=== PATIENT | male | born 1945 | race Caucasian/White ===

== ENCOUNTER 2021-12-31 13:52 | Outpatient (CLI) | payer OTHER, SELFPAY ==
[2021-12-31 22:15] LABS: Albumin* 4.3 g/dL (3.3-5.0); Chloride* 99 mmol/L (96-114)
[2021-12-31 22:16] LABS: Potassium* 4.8 mmol/L (3.6-5.1); Sodium* 135 mmol/L (135-149)
[2021-12-31 22:18] LABS: Alkaline Phosphatase* 57 U/L (40-150); Aspartate Amino Transferase* 25 U/L (12-35); Bilirubin Total* 0.7 mg/dL (0.1-1.5); Blood Urea Nitrogen* 18 mg/dL (7-30); Carbon Dioxide* 26 mmol/L (20-32); Cholesterol* 127 mg/dL (90-199); Creatinine* 1.1 mg/dL (0.5-1.5); Estimated Glomerular Filt Rate 70 ml/min; Glucose* 228 mg/dL (60-115); Total Protein* 6.9 g/dL (6.0-8.3); Triglycerides* 240 mg/dL (40-149)
[2021-12-31 22:19] LABS: Alanine Aminotransferase* 29 U/L (4-50); Calcium* 9.8 mg/dL (8.4-10.6); HDL Cholesterol* 40 mg/dL (>=40); LDL Cholesterol Calculated 39 mg/dL (<100)
[2021-12-31 23:03] LABS: Vitamin B12* 746 pg/mL (243-894)
== END 2021-12-31 13:53 | disposition home or self-care (01) ==
PROVIDERS: PCP Family Medicine; Visit Provider Family Medicine
DX: Z00.00 Encounter for general adult medical examination without abnormal findings (principal); I25.10 Atherosclerotic heart disease of native coronary artery without angina pectoris; R26.89 Other abnormalities of gait and mobility; R94.131 Abnormal electromyogram [EMG]; Z86.39 Personal history of other endocrine, nutritional and metabolic disease; I10 Essential (primary) hypertension; E78.5 Hyperlipidemia, unspecified
CPT/HCPCS: 80053; 80061; 82607

== ENCOUNTER 2022-01-04 09:02 | Outpatient (CLI) | payer OTHER, SELFPAY ==
--- NOTE | 2022-01-04 09:15 | CRLHL7_ITS ---
For Patients: As a result of the Century Cures Act, medical imaging exams and procedure reports are released immediately into your electronic medical record. You may view this report before your referring provider. If you have questions, please contact your health care provider. INDICATION: Low back pain. TECHNIQUE: Noncontrast MRI of the lumbar spine is performed in the usual fashion. No comparisons. FINDINGS: Mild chronic wedge-shaped compression deformity of the L1 vertebral body. Remainder of the lumbar spine demonstrates normal overall stature, alignment and marrow signal. Conus is within normal limits. T12-L1, L1-2, L2-3: Unremarkable. L3-4: Mild broad-based posterior disc bulge with moderate bilateral facet arthropathy results in mild to moderate central canal narrowing. Right lateral extension of the underlying disk bulge results in mild to moderate right foraminal narrowing with contact of the exiting right L3 nerve root laterally with no left foraminal narrowing. L4-5: Moderate to severe bilateral facet arthropathy with ligamentum flavum laxity and mild broad-based posterior disc bulge results in severe central canal, bilateral lateral recess narrowing with moderate bilateral foraminal narrowing. L5-S1: Mild broad-based posterior disc bulge results in contact with no compression of the traversing S1 nerve roots. Central canal is patent. Associated bilateral facet arthropathy results in mild to moderate bilateral foraminal narrowing. IMPRESSION: 1. Severe central canal and bilateral lateral recess narrowing with likely compression of the traversing L5 nerve roots and moderate bilateral foraminal narrowing at L4-5. 2. Mild to moderate bilateral L5-S1 foraminal narrowing. 3. Right lateral disc herniation at L3-4 contacting the exiting right L3 nerve root laterally. 4. Mild chronic wedge-shaped compression deformity of the L1 vertebral body. 5. Milder degenerative changes within the remainder of the lumbar spine as outlined above. Dictated by Thuan Dobbins MD @ 01/04/2022 5:18:35 PM (Electronically Signed)
== END 2022-01-04 09:03 | disposition home or self-care (01) ==
PROVIDERS: PCP Family Medicine; Visit Provider Family Medicine
DX: M54.50 Low back pain, unspecified (principal); M51.27 Other intervertebral disc displacement, lumbosacral region; M51.26 Other intervertebral disc displacement, lumbar region
CPT/HCPCS: 72148

== ENCOUNTER 2022-03-05 10:15 | Outpatient (RCR) | payer OTHER, SELFPAY ==
--- NOTE | 2022-01-25 14:41 | PT.OPDN ---
PT [facility] Outpatient Daily Note PT [facility] Outpatient Daily Note Start: 10/10/21 12:08 Freq: Status: Active Protocol: Document 01/24/22 17:34 BMS (Rec: 01/24/22 17:35 BMS [id number]) E-signed By Janette Ventura, PT PT OP Daily Progress Note Visit Information Note Type Daily Note Visit Number [id number] Insurance Authorized Visits [phone]) Insurance Information Insurance Name Other; See Comments Insurance Information/Comments [employer] Medical Diagnosis balance problems R26.89 eval and treat Treating Diagnosis abnormal gait R26.9 repeated falls R29.6 R LE pain M79.609, Referring MD Ion SYED Subjective Subjective went back to doctor they did MRI and EMG and told me to continue with therapy. have been more unsteady Precautions Treatment Precautions/Contraindications use of gait belt with all gait , balance and transfer activities History of [place] (myocardial infarction) 2002. One stent. No records. See Past Records from [place]. Arteriosclerotic cardiovascular disease See Past Records from [place]. Type 2 diabetes mellitus with diabetic polyneuropathy Patient followed by Endocrinology. Amputation of toe of left foot 01/08/2018. Partial amputation 2nd toe. See Past Records from [place]. Mild cognitive impairment with memory loss See Past Records from [place]. SELMA (obstructive sleep apnea) Sleep study 03/23/17. No report. Showed mild to moderate SELMA associated with sleep fragmentation. Uses CPAP . See Past Records from [place]. Benign non-nodular prostatic hyperplasia with lower urinary tract symptoms See Past Records from [place]. Essential hypertension See Past Records from [place]. Mixed hyperlipidemia See Past Records from [place]. Type 2 diabetes mellitus with stage 3 chronic kidney disease , with long-term current use of insulin Hx of coronary angiogram 06/24/2002; 08/10/2002.See Past Records from [place]. 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; referral to Cardiology placed Home Exercise Home Exercise Comments 2 sets for alternating days , , FRI Access Code: [email or web address] Date: 10/18/2021 Exercises Alternating Step Forward with Support - 1 x daily - 5 x weekly - 1-3 sets - 10-20 reps - 5-10 sec hold Alternating Step Backward with Support - 1 x daily - 5 x weekly - 1-3 sets - 10-20 reps - 5-10 sec hold Side Stepping with Unilateral Counter Support - 1 x daily - 5 x weekly - 1-3 sets - 10-20 reps - 5-10 sec hold ~~~~~ M,W,F Exercises Sit to Stand - 1 x daily - 5 x weekly - 1-3 sets - 10-20 reps - 5-10 sec hold Standing Hip Flexion AROM - 1 x daily - 5 x weekly - 1-3 sets - 10-20 reps - 5-10 sec hold - hold 30-60 sec stretch Standing Hip Abduction with Counter Support - 1 x daily - 5 x weekly - 1-3 sets - 10-20 reps - 5-10 sec hold Standing Hip Extension with Counter Support - 1 x daily - 5 x weekly - 1-3 sets - 10-20 reps - 5-10 sec hold Standing Hip Flexor Stretch - 1 x daily - 5 x weekly - 1-3 sets - hold 30-60 sec stretch Objective Other/Pertinent Objective see assess portion Patient Instructed in Risks/Benefits Yes Therapeutic Exercise Therapeutic Exercise Minutes (minutes) 30 Therapeutic Exercise: To Restore recumbent bike 6 min Functional Status slant board stretches 2 x 30 sec, then ankle mobiliyt with slant board A/P x 10, wobble - sit/ stand x 10 HS stretches on stool 2 x 30 sec B - hip flexor stretch standing at rail 2 x 30 se revise home program - - standing hip abduct/ ext x 15 - sit/ stand x 10 no use of hands - bridge x 10 - SLR x 10, hip abduct x 10 Gait & Stair Training Gait Training/Stairs Minutes (minutes) 10 Gait & Stair Training Comments quad cane , cueing for foot clearance, stride length, gaze and scanning environment as well as which hand to use cane in. instruct in upright posture to bring COG over hips Treatment Minutes Timed Code Treatment Minutes 40 Total Treatment Time 40 Billing Units Neuromuscular Reeducation Units 1 Therapeutic Exercise Units 2 Assessment/Impression Assessment/Impression Patient returns after 3.5 week absence, after receiving new order request for insurance authorization was required before could schedule. He presents today with decline from last session in balance, gait and endurance. Reports he has been somewhat inconsistent with home program , that he has difficulty completing without assist. He also is unable to perform balance challenges and with weather turning cold less able to go for walks and camp etc. Eliezer is appropriat efor skilled phsyical therapy to slow decline and restore prior level of function then may be appropriate for maintenance therapy through winter ot decrease fall risk and maintain improved level of independence. patient demo increased difficulty with all balance activities - therapist does note LOB forward and posterior this date, with center of gravity shifted forward over base putting him at higher risk of falling forward. Gait: stooped, using quad cane in R , with decreased foot clearance R and short strides, downward gaze to floor. LOB with sit/stand and use of calves braced against chair or mat to rise. B UE assist also . Plan of Care Physical Therapy Goals 1) Pt demo independence/ modified I with home program to maximize self care and slow deterioration of function. 2) Pt maintain I transfers, transitions and bed mobility for maximum safe independence in own home through training, equipment and adaptation as appropriate in presence of degenerative disease process. PROGRESSING 3) Pt participate in gait and balance training to maximize safest independence with home and community mobility using least restrictive aid. PROGRESSING to more advanced balance ex 4) Pt participate in clinic program to maximize strength, stability, balance and conditioning for maximal quality of life while considering/ adapting to disease process. 3) Pt will demo 500' ambulation without limp and with best mechanics and balance to decrease risk of fall with community ambulation for things such as grocery shopping, participation in fitness activities. 4) Pt will demo ability to ascend 16 steps safely for access to bedroom 5) Pt demo ability to ambulate safely over grass, uneven ground, hills and rocks with least restrictive gait aid to be able to attend grandchildrens events Daily Plan of Care Comments challenged balance sung labile surface and vision impaired or occluded conditions, multitasking including walk/ talk, carrying and repetitions for cementing neuro patterns - request for additional approved visits to prior auth dept submitted Recertification Information Recertification Start Date 01/24/22 Recertification Due Date 02/22/22 Reasons to Continue Skilled Therapy see assess portion Rehabilitation Potential fair - cognitive and physical challenges Continued Plan of Care and Interventions 1-2x/ week x 12 weeks
== END 2022-05-03 11:11 | disposition home or self-care (01) ==
PROVIDERS: Visit Provider Family Medicine
DX: R26.89 Other abnormalities of gait and mobility (principal); Z51.89 Encounter for other specified aftercare
CPT/HCPCS: 97110; 97112; 97116; 97140; 97530

== ENCOUNTER 2022-03-25 12:24 | Outpatient (CLI) | payer OTHER, SELFPAY | END 2022-03-25 12:25 | disposition home or self-care (01) | LOC: US 12:25 | PROVIDERS: PCP Family Medicine; Visit Provider Family Medicine | DX: I73.9 Peripheral vascular disease, unspecified (principal) | CPT/HCPCS: 93924 ==

== ENCOUNTER 2022-04-01 07:24 | Day surgery (SDC) | payer OTHER, SELFPAY ==
[2022-04-01] VITALS (8 sets, daily range): BP systolic 108–137; BP diastolic 68–78; PULSE 61–82; RESP 16–18; TEMP 36.8–37; O2SAT 96–98; BMI 31.8
--- NOTE | 2022-04-01 07:52 | SUR.PREOP ---
patient and his both took at home covid antigen tests. Both hadnegative tests with only one line visible.
[2022-04-01] MEDS: BUPIVACAINE 0.5% 30 ML 20 ML INJECTION (09:20)
--- NOTE | 2022-04-01 10:13 | PM.GSPRC ---
Operative Note Date of procedure: 04/01/22 Type of Procedure: amputation 2nd toe left Procedure Description: After discussing the risks and benefits of the procedure, the patient signed informed consent.? The operative site was marked and the patient was brought to the operating room and placed on the operating table in supine position.? Care was taken to pad the patient's pressure points.?? The patient was then Injected with 20 mL all of 0.5% Marcaine.?? The operative site was then prepped and draped in the usual sterile fashion.? A time-out was then performed. the left foot was exsanguinated and the tourniquet inflated to 250 mm Hg. Incision was made at the base of the 2nd toe dorsally extended distally. Incision then diverged both medially and laterally around the base the toe converging plantarly. Incision was taken directly to bone. Proximal phalanx was disarticulated at the metatarsophalangeal joint. the proximal phalanx was removed in total and sent to pathology. Portion of infected area was sent for cultures. Wound was thoroughly irrigated with 1000 mL normal saline. Tourniquet was released and all bleeding vessels cauterized. medial and lateral flaps were brought together and sutured with 3-0 Nylon. Sterile dressings were then applied. The patient was then transported to the recovery area in stable condition. The patient tolerated the procedure well. Written and verbal postop instructions given. He is weight-bearing as tolerated. Continue with antibiotics until cultures complete. Tylenol 3 given for pain. Follow-up in 2 days. Findings: Proximal phalanx and pathology. portion of proximal phalanx and culture. Complications: None apparent Anesthesia: local Surgeon: Kevin Galloway DPM Condition: stable Disposition: same day
--- NOTE | 2022-04-01 10:30 | SUR.PHASEII ---
Pt and family member verbalized readiness to be discharged and understanding of discharge instructions. Active ice. black podiatry shoe given to patient per Dr. Galloway orders. Pt tolerated coffee and water.
== END 2022-04-01 10:29 | disposition home or self-care (01) ==
PROVIDERS: PCP Family Medicine; Visit Provider Podiatrist
PROC: (CPT 28820; principal; 2022-04-01 09:00)
DX: L97.522 Non-pressure chronic ulcer of other part of left foot with fat layer exposed (principal); E11.621 Type 2 diabetes mellitus with foot ulcer; E11.628 Type 2 diabetes mellitus with other skin complications; L03.032 Cellulitis of left toe; M86.172 Other acute osteomyelitis, left ankle and foot
CPT/HCPCS: 28820; 87186; 87205; 88305; 88311; J3490

== ENCOUNTER 2022-04-25 11:50 | Outpatient (CLI) | payer OTHER, SELFPAY ==
[2022-04-25 21:58] LABS: Albumin* 4.3 g/dL (3.3-5.0); Chloride* 104 mmol/L (96-114)
[2022-04-25 21:59] LABS: Potassium* 5.4 mmol/L (3.6-5.1); Sodium* 138 mmol/L (135-149)
[2022-04-25 22:01] LABS: Aspartate Amino Transferase* 24 U/L (12-35); Bilirubin Total* 0.7 mg/dL (0.1-1.5); Blood Urea Nitrogen* 24 mg/dL (7-30); Carbon Dioxide* 29 mmol/L (20-32); Cholesterol* 121 mg/dL (90-199); Creatinine* 1.3 mg/dL (0.5-1.5); Estimated Glomerular Filt Rate 58 ml/min; Glucose* 157 mg/dL (60-115); Total Protein* 6.8 g/dL (6.0-8.3)
[2022-04-25 22:02] LABS: Alanine Aminotransferase* 27 U/L (4-50); Alkaline Phosphatase* 43 U/L (40-150); Calcium* 9.7 mg/dL (8.4-10.6); HDL Cholesterol* 39 mg/dL (>=40); LDL Cholesterol Calculated 45 mg/dL (<100); Triglycerides* 183 mg/dL (40-149)
[2022-04-25 23:44] LABS: Vitamin B12* 921 pg/mL (243-894)
== END 2022-04-25 11:51 | disposition home or self-care (01) ==
PROVIDERS: PCP Family Medicine; Visit Provider Family Medicine
DX: Z00.00 Encounter for general adult medical examination without abnormal findings; E11.9 Type 2 diabetes mellitus without complications; Z13.6 Encounter for screening for cardiovascular disorders; Z79.899 Other long term (current) drug therapy
CPT/HCPCS: 80053; 80061; 82043; 82570; 82607; 84156

== ENCOUNTER 2022-04-26 10:09 | Outpatient (CLI) | payer OTHER, SELFPAY ==
[2022-04-26 13:07] LABS: Total Protein Urine 20 mg/dL
[2022-04-26 13:10] LABS: Creatinine Urine 127.2 mg/dL
== END 2022-04-26 10:10 | disposition home or self-care (01) ==
LOC: FRMREF 10:09
PROVIDERS: PCP Family Medicine; Visit Provider Family Medicine
DX: E11.9 Type 2 diabetes mellitus without complications (principal)
CPT/HCPCS: 82570; 84156

== ENCOUNTER 2023-03-13 10:37 | Outpatient (CLI) | payer OTHER, SELFPAY ==
[2023-03-13 14:49] LABS: TSH With Reflex to FT4* 0.635 uIU/mL (0.270-4.200)
[2023-03-13 14:52] LABS: Albumin* 4.5 g/dL (3.3-5.0); Chloride* 97 mmol/L (96-114)
[2023-03-13 14:53] LABS: Potassium* 4.9 mmol/L (3.6-5.1); Sodium* 133 mmol/L (135-149)
[2023-03-13 14:55] LABS: Alanine Aminotransferase* 50 U/L (4-50); Alkaline Phosphatase* 59 U/L (40-150); Anion Gap 11 mEq/L (7-15); Aspartate Amino Transferase* 37 U/L (12-35); Bilirubin Total* 1.2 mg/dL (0.1-1.5); Blood Urea Nitrogen* 19 mg/dL (7-30); Carbon Dioxide* 25 mmol/L (20-32); Estimated Glomerular Filt Rate 78 ml/min; Total Protein* 7.1 g/dL (6.0-8.3)
[2023-03-13 14:56] LABS: Calcium* 9.6 mg/dL (8.4-10.6)
[2023-03-13 15:35] LABS: Glucose* 560 mg/dL (60-115)
== END 2023-03-13 10:38 | disposition home or self-care (01) ==
PROVIDERS: PCP Family Medicine; Visit Provider Family Medicine
DX: E63.9 Nutritional deficiency, unspecified (principal); R63.4 Abnormal weight loss
CPT/HCPCS: 80053; 84443

== ENCOUNTER 2023-06-17 07:13 | Outpatient (CLI) | payer OTHER, SELFPAY | END 2023-06-17 07:14 | disposition home or self-care (01) | PROVIDERS: PCP Family Medicine; Visit Provider Family Medicine | DX: E11.42 Type 2 diabetes mellitus with diabetic polyneuropathy (principal); Z86.39 Personal history of other endocrine, nutritional and metabolic disease; Z12.5 Encounter for screening for malignant neoplasm of prostate; Z11.59 Encounter for screening for other viral diseases | CPT/HCPCS: 80053; 82043; 82570; 82607; 86803; G0103 ==

== ENCOUNTER 2023-07-25 10:06 | Outpatient (CLI) | payer OTHER, SELFPAY ==
--- NOTE | 2023-07-25 10:15 | US_ITS ---
Patient: NEYMAR AVILES Facility:?[facility] Patient ID:?[id number] Site Patient ID:?[id number]. Site :?[id number] Study:?US-Abdomen AORTA-07/25/2023 11:18:05 AM Ordering Physician:Esther Colon Final Report: Examination: US abdominal aorta Indication: Abdominal aortic aneurysm screening. Technique: Emmanuel scale and color Doppler images of the aorta and common iliac arteries are obtained. Comparison: None Findings: Proximal aorta: 1.7 x 1.8 cm Mid aorta: 1.6 x 1.4 cm Distal aorta: 1.6 x 1.6 cm Right common iliac artery: 0.8 x 0.8 cm Left common iliac artery: 0.9 x 0.9 cm Impression: No abdominal aortic aneurysm. Dictated by Neymar Vegas MD @ 07/25/2023 11:46:50 AM Signed by:?Neymar Vegas MD @07/25/2023 11:46:50 AM (Electronic Signature)
== END 2023-07-25 10:07 | disposition home or self-care (01) ==
LOC: US 10:08
PROVIDERS: PCP Family Medicine; Visit Provider Family Medicine
DX: Z13.6 Encounter for screening for cardiovascular disorders (principal); Z87.891 Personal history of nicotine dependence
CPT/HCPCS: 76706

== ENCOUNTER 2024-06-29 10:06 | Outpatient (CLI) | payer OTHER, SELFPAY | END 2024-06-29 10:07 | disposition home or self-care (01) | PROVIDERS: PCP Family Medicine; Visit Provider Family Medicine | DX: E11.42 Type 2 diabetes mellitus with diabetic polyneuropathy (principal); N18.9 Chronic kidney disease, unspecified; R33.9 Retention of urine, unspecified; Z86.39 Personal history of other endocrine, nutritional and metabolic disease | CPT/HCPCS: 80048; 82043; 82570; 82607 ==

== ENCOUNTER 2024-06-29 13:19 | Emergency (ER) | payer OTHER, SELFPAY ==
--- OUTSIDE RECORDS SUMMARY | 2024-06-29 13:21 | XMS_ITS | Clinical Summary ---
Author Organization [facility] Address [address] [place] [id number] Care Team Providers Care Dishcloth Folder Name Role Phone Yumiko Vidal MD Unavailable Unavailable Yumiko Vidal MD Unavailable Unavailable Esther Arboleda MD Primary Care Provider [phone] Allergies Active Allergy Reactions Criticality Noted Date Comments Oxycodone-Acetaminophen Other - Describe In Comment Field Low 01/08/2018 Patient stated he feels beside himself (anxiety type reaction) Patient stated he feels beside himself (anxiety type reaction) Penicillins *Unknown - Childhood Rxn 01/25/2014 Medications metFORMIN (GLUCOPHAGE) 1,000 mg tabletIndications :Type II or unspecified type diabetes mellitus without mention of complication, uncontrolled Take 1 tablet by mouth 2 times daily with meals. 0 01/26/20 14 Active aspirin (ECOTRIN) 81 mg enteric coated tabletIndications :Type II or unspecified type diabetes mellitus without mention of complication, uncontrolled Take 1 tablet by mouth once daily with a meal. 0 01/26/20 14 Active insulin degludec, U-100, (Tresiba FlexTouch U-100) 100 unit/mL (3 mL) pen Inject 33 units subcutaneous every morning. 0 04/10/20 22 Active metoprolol succinate (Toprol XL) 25 mg Sustained-Release tabletIndications :Arteriosclerotic heart disease Take 1 Tablet (25 mg) by mouth once daily. 90 Tablet 3 04/10/20 22 Active simvastatin (ZOCOR) 10 mg tablet Take 10 mg by mouth at bedtime. 09/25/19 23 Active Graduated Compression StockingsIndicati ons:Venous insufficiency of both lower extremities 20-30 mm/Hg calf high compression stockings - Venous insufficiency 8 Packet 08/12/19 24 Active Active Problems Problem Noted Date Diagnosed Date Shortness of breath 12/08/2006 ASHD S/P INFERIOR GA + RCA STENT 06/14 [place] [facility] 12/08/2006 Pure hypercholesterolemia 12/08/2006 EXCESS WEIGHT 12/08/2006 Immunizations Immunization Administration Dates Next Due Influenza Virus, Unspecified 11/27/2019, 01/06/2013,01/01/2012,2008 Influenza, High-dose Inactivated 019,01/12/2018,12/23/2016,2015,01/25/2015,01/19/2015,01/31/2014 Influenza, High-dose Quadriv alent Inactivated 12/09/2021 Influenza, IIV3 (Age 6-35 mos) 12/31/2019 Influenza, IIV3 (Age >=3 years) 01/06/2013,12/31,01/27/2009 Influenza, Inactivated AIIV4 (Age 65+ Years) Preserv Free 01/04/2021 Influenza, Inactivated IIV3 (Age 65+ Years) Preserv Free 01/04/2021,12/31/2019 Pneumococcal Poly,23-Valent (Pneumovax) 06/02/2014,05/23/2014,01/27/2009 Pneumococcal conj 13-Valent (Prevnar 13) 01/15/2016 Tdap 09/02/2019,08/16/2009 Zoster (Shingrix-RZV, recombinant) 06/03/2018,,01/29/2018 Family History Relation Name Status Comments Father Mother Social History Tobacco Use Types Packs/Day Years Used Date Smoking Tobacco: Former Cigarettes Smokeless Tobacco: Never Tobacco Cessation:Counseling Given: Yes Alcohol Use Standard Drinks/Week Comments Yes 0 (1 standard drink = 0.6 oz pur e alcohol) 1-2x a day (beer) Social Connections Answer Date Recorded Frequency of Communication with Friends and Fami ly Not on file 06/29/2021 Sex and Gender Information Value Date Recorded Sex Assigned at Not on file 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 Gender Identity Not on file Sexual Orientation Not on file Obstetrics History Last Filed Vital Signs Vital Sign Reading Time Taken Comments Blood Pressure 122/64 08/12/2023 8:47 AM CDT Pulse 89 08/12/2023 8:47 AM CDT Temperature 36.7 C (98.1 F) 11/18/2022 1:31 PM CDT Respiratory Rate 14 06/29/2021 11:27 AM CDT Oxygen Saturation 96% 04/29/2023 12:56 PM 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 Inhaled Oxygen Concentration - - Weight 95.3 kg (210 lb) 08/12/2023 8:47 AM CDT Height 182.9 cm (6') 08/12/2023 8:47 AM CDT Body Mass Index 28.48 08/12/2023 8:47 AM CDT Plan of Treatment Health Maintenance Due Date Last Done Comments Depression screening for age 12+ 1959 Hepatitis C screening for ag e 18-79 06/16/1965 Medicare Wellness for age 65+ 06/16/2012 RSV vaccine for adults or (1 - 1-dose 75+ series) 06/16/2022 COVID-19 vaccine series ( season) 2023 02/05/2023, 02/05/2022, 07/30/2021, Additional history exists Influenza Vaccine (#1) 2023 , 01/04/2021, 12/31/2019, Additional history exists BMI (ht and wt on same day) for age 18+ 08/11/2024 08/12/2023, 04/10/2022, 01/31/2022 Tetanus booster 09/01/2029 09/02/2019, 08/16/2009 Pneumococcal series for age 50+ Completed 01/15/2016, 06/02/2014, 05/23/2014, Additional history exists Zoster (shingles) series for age 50+ Completed 06/03/2018, 05/25/2018, 01/29/2018 Tdap Completed 09/02/2019, 08/16/2009 Insurance [employer] CHOICE PPO [place] MEDICARE PART A HB ONLY Care Teams Dishcloth Folder Relationship Specialty Start Date End Date Esther Arboleda MD [id number] [place] [address] PCP - General 01/16/22 Yumiko Vidal MD Endocrinology 01/25/14 Yumiko Vidal MD Endocrinology 01/25/14
--- OUTSIDE RECORDS SUMMARY | 2024-06-29 13:22 | XMS_ITS | Clinical Summary ---
Author Organization [facility] Address [address] [place] [address] Care Team Providers Care Office Clin Asst Name Role Phone Rosamaria Lane MD Unavailable [phone] [facility], Shweta Unavailable Unavailable Allergies Active Allergy Reactions Criticality Noted Date Comments Oxycodone-Acetaminophen Other Low 01/08/2018 Patient stated he feels beside himself (anxiety type reaction) Penicillins Rash Medium 07/31/2010 Other reaction(s): Hives Medications * This document contains information received from the source organization and may not represent a complete record from that organization. aspirin 81 mg Oral TbEC Take 81 mg by mouth daily. Active lancets (ACCU-CHEK MULTICLIX LANCET)Indication s:Type 2 diabetes mellitus without complication, with long-term current use of insulin (HCC) USE DIRECTED TO TEST TWICE DAILY 204 each 3 0 Active lancetsIndication s:Type 2 diabetes mellitus with stage 3a chronic kidney disease, with long-term current use of insulin (HCC),Type 2 diabetes mellitus with diabetic polyneuropathy, with long-term current use of insulin (HCC) by [facility]Non-Drug ; Combo Route) route once daily. Accu-chek Fastclix. 100 each 3 1 Active pen needle, diabetic (BD INSULIN PEN NEEDLE UF) 31 gauge x 5/16 needleIndications :Type 2 diabetes mellitus with stage 3a chronic kidney disease, with long-term current use of insulin (HCC) by [facility].(Non-Drug ; Combo Route) route once daily. 100 each 3 2 Active donepeziL (ARICEPT) 5 mg oral tablet Take 5 mg by mouth. 2 Active metFORMIN (GLUCOPHAGE) 1,000 mg oral tabletIndications :Type 2 diabetes mellitus without complication, with long-term current use of insulin (HCC) Take 1 tablet (1,000 mg) by mouth twice a day. 60 tablet 2 Active ramipriL (ALTACE) 2.5 mg oral CapIndications:Es sential hypertension Take 1 capsule (2.5 mg) by mouth once daily. 90 capsule 2 Active simvastatin (ZOCOR) 20 mg oral tabletIndications :Dyslipidemia Take 1 tablet (20 mg) by mouth at bedtime. at bedtime. 90 tablet 2 Active insulin degludec (TRESIBA FLEXTOUCH U-100) 100 unit/mL (3 mL) SubQ InPnIndications:T ype 2 diabetes mellitus without complication, with long-term current use of insulin (HCC) INJECT 36 UNITS UNDER THE SKIN ONCE DAILY. 15 mL 2 Active Tubing and Mask for CPAPIndications:O SA (obstructive sleep apnea) 1 each by Mis.(Non-Drug ; Combo Route) route as directed. Under the nose mask and cushions, A7035 Headgear 1 per 6 mon; A7037 Tubing for PAP 1 per 3 mon; A7038 Filter(s) disposable 2 per mon; A7046 Water chamber for Humidifier 1 per 6 month. E0562 Heated Humidifier. Lifetime use. 1 each 11 3 Active Active Problems Problem Noted Date Diagnosed Date Abnormal electromyogram (EMG) 10/22/2022 Balance disorder 10/22/2022 Claudication 10/22/2022 Frequent ventricular premature beats 10/22/2022 History of non anemic vitamin B12 deficiency 02/2023 Spinal cord compression 10/22/2022 Peripheral neuropathy 12/12/2021 Abnormal gait 03/05/2021 Other amnesia 03/05/2021 Type 2 diabetes mellitus wit h diabetic polyneuropathy, with long-term current use of insulin 09/27/2019 History of amputation of lesser toe of left foot 01/12/2018 DECLINED chronic care management [Jan 2018] 05/2017 Mild cognitive impairment with memory loss 04/17 Nocturia 04/17/2017 SELMA (obstructive sleep apnea) 03/23/2017 Overview (03/28/2017): AHI 11.5/RDI 27.4/REM AHI 23.7, oxygen desaturation 91%, Marcela Benign non-nodular prostatic hyperplasia with lower urinary tract symptoms 02/17/2015 ASCVD (arteriosclerotic cardiovascular disease) 03/01/2011 Overview (02/26/2012): *[facility]oplasty and stenting of the occluded Cx/OM artery using a 2.5x15mm balloon followed by 2.89n01cm B Velocity stent. *08/10/2002- Angiogram complete. No intervention. Patient to start EECP. Essential hypertension 09/05/2010 Claustrophobia 09/05/2010 Type 2 diabetes mellitus wit h stage 3a chronic kidney disease, with long-term current use of insulin 07/31/2010 Mixed hyperlipidemia 07/31/2010 Immunizations Name Administration Dates Next Due Influenza (Fluzone 2011-13) 01/01/2012 Influenza (Fluzone MDV 2012- 14) 6-35 Mos 01/06/2013,01/01/2012,01/27/2009 Influenza High Dose (Fluzone 2013-15) 01/31/2014 Influenza High Dose (Fluzone Quadrivalent PF) 12/09/2021,01/04/2021,12/31/2019,2018,01/12/2018,12/23/2016,01/15/2016,1 ,01/31/2014 Influenza recombinant (FluBl ok Quadrivalent PF) 01/04/2021,12/31/2018,01/12/2018,2016,01/15/2016,01/25/2015,01/19/2015,1 ,01/06/2013,01/01/2012, 009 Influenza split virus quadrivalent 11/26,01/06/2013,01/01/2012,2008 Pfizer 12+ Yrs Bivalent COVI D Vaccine (bowen cap) 02/05/2022 Pfizer 12+ Yrs Monovalent CO VID Vaccine (bowen cap) 07/30/2021 Pfizer 12+ Yrs Monovalent CO VID Vaccine (purple cap) 07/30/2021,01/09/2021,05/25/2020,2020 Pneumococcal PCV13 01/15/2016 Pneumococcal PPSV23 06/02/2014,01/27/2009 Td adult adsorbed (lf) unspecified 08/16/2009 Tdap 09/02/2019 Zoster Recombinant 06/03/2018,01/29/2018 Family History Medical History Relation Comments Heart Disease Father Cancer Mother Relation Status Comments Father (Age 63) Mother Social History Tobacco Use Types Packs/Day Years Used Date Smoking Tobacco: Former Cigarettes 2 36 0 06/12/1966 - 06/12/2002 Smokeless Tobacco: Never Tobacco Cessation:Counseling Given: Not Answered Alcohol Use Standard Drinks/Week Comments Yes 8.3 (1 standard drink = 0.6 oz p ure alcohol) couple beers per week PHQ-2 Answer Date Recorded PHQ9 Total Score, calculated 1 10/2018 Sex and Gender Information Value Date Recorded Sex Assigned at Not on file Legal Sex Male 8:38 AM CDT Gender Identity Not on file Sexual Orientation Not on file Occupation Industry Job Start Date Job End Date Retired Not on file Not on file Not on file 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 Not on file Not on file Not on file Last Filed Vital Signs Vital Sign Reading Time Taken Comments Blood Pressure 112/74 10/22/2022 1:14 PM CDT Pulse 62 12/03/2019 10:58 AM CDT Temperature 36.4 C (97.6 F) 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 Respiratory Rate 14 10/01/2010 8:30 AM CDT Oxygen Saturation 97% 12/03/2019 10:58 AM CDT Inhaled Oxygen Concentration - - Weight 103.4 kg (228 lb) 10/22/2022 1:14 PM CDT Height 177.2 cm (5' 9.75) 10/22/2022 1:14 PM CD T Body Mass Index 32.95 10/22/2022 1:14 PM CDT Plan of Treatment Health Maintenance Due Date Last Done Comments Depression Assessment (PHQ-2) 06/16/1946 Eye Exam 01/30/2021 01/31/2020, 01/12, 08/29/2017, Additional history exists Medicare Wellness Visit 02/07/2021 02/08/20, 01/18/2019, 01/12/2018, Additional history exists Yearly Review of HCD 02/07/2021 02/08/2020, 01/18/2019, 01/05/2018, Additional history exists HgbA1C 04/28/2021 01/26/2021, 05/15, 09/27/2019, Additional history exists Creatinine 04/18/2023 04/18/2022, 03/15, 01/26/2021, Additional history exists COVID-19 Vaccine (2023-05 5 season) 2023 02/05/2023, 02/05/2022, 07/30/2021, Additional history exists Influenza Vaccine (#1) 2023 , 12/09/2021, 01/04/2021, Additional history exists Colonoscopy 04/01/2026 04/01/2016 Adult Tetanus Booster 09/01/2029 09/02/2019, 010 Pneumococcal 50+ Years Completed 6, 06/02/2014, 01/27/2009 Hepatitis C Screening Completed 01/02/2017 Zoster Vaccine Completed 06/03/2018, 05/16, 01/29/2018 RSV Vaccines Completed 03/05/2023 Procedures Procedure Name Priority Date/Time Associated Diagnosis Comments BASIC METAB PROFILE Routine 01/26/2021 1 :32 PM CDT Type 2 diabetes mellitus with stage 3a chronic kidney disease, with long-term current use of insulin (HCC) (yes) (HCC) HGB A1C (GLYCO HGB) (BFM / STH USE ONLY) Routine 01/26/2021 1:32 PM CDT Type 2 diabetes mellitus with stage 3a chronic kidney disease, with long-term current use of insulin (HCC) (yes) (HCC) HEP C ANTIBODY Routine 01/02/2017 11:09 AM CDT Need for hepatitis C screening test from Last 3 Months or Most Recently Relevant to Health Maintenance Results * (ABNORMAL) HGB A1C (GLYCO HGB) (BFM / STH USE ONLY) (01/26/2021 1:32 PM CDT) HGBA1C OP 6.8(H) 3.8 - 5.6 % [facility] Blood VENOUS BLOOD SPECIMEN / Unknown 01/26/2021 1:32 PM CDT Nargis Contreras MD CHEMISTRY ORDERABLE Final Resu lt Performing Organization Address [facility]/ZIP Co de Phone Number [address] [address], [place] [phone] * (ABNORMAL) BASIC METAB PROFILE (01/26/2021 1:32 PM CDT) GLUCOSE CASUAL OP 100.0(H) 70.0 - 99.0 mg/dL [facility] BUN 16.0 7.0 - 18.0 mg/dL [facility] CREATININE 1.33(H) 0.60 - 1.30 mg/dL [facility] CALCIUM 9.3 8.5 - 10.1 mg/dL [facility] SODIUM 139.0 136.0 - 145.0 mmol/L [facility] POTASSIUM 4.2 3.5 - 5.1 mmol/L [facility] CHLORIDE 102.0 98.0 - 107.0 mmol/L [facility] CO2 26.1 21.0 - 32.0 mmol/L [facility] EST GFR (MDRD) 52.7 [facility] Comment: Calculated GFR for the patient 18 and older: Normal Kidney Function: >/-90 Mild Decreased GFR: 60 - 89 Moderated Decreased GFR: 30 - 59 Severe Decreased GFR: 15 - 29 Kidney Failure: <15 (or dialysis) If the patient is , the calculated GFR should be multiplied by 1.21. Units of measure for GFR = mL/min/1.73m2 The GFR value is not valid for patients under 18 years of age. Please disregard. Blood VENOUS BLOOD SPECIMEN / Unknown 01/26/2021 1:32 PM CDT Nargis Contreras MD CHEMISTRY ORDERABLE Final Resu lt [address] [place] [address], * HEP C ANTIBODY (01/02/2017 11:09 AM CDT) Hepatitis C Antibody Non-Reacti ve Non-Reacti ve 01/03/2017 11:52 AM CDT [facility] Blood VENOUS BLOOD SPECIMEN / Unknown 01/02/2017 11:09 AM CDT 01/03/2017 10:52 AM CDT us Allan Wilder MD IMMUNOLOGY ORDERABLE Final Resul t [facility] [address] [place] [address] from Last 3 Months or Most Recently Relevant to Health Maintenance Insurance [facility] MEDICARE ADVANTAGE MEDICARE PART A & B ATTN CLAIMS [facility] [place] [id number] [employer] MEDICARE ADVANTAGE Advance Directives For more information, please contact: [phone] Documents on File Type Date Recorded 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
--- OUTSIDE RECORDS SUMMARY | 2024-06-29 13:22 | XMS_ITS | Encounter Summary ---
Author Organization [facility] Address [address] [place] [address] Care Team Providers Care Poker In Name Role Phone System, Provider Not In Primary Care Provider Un available Reason for Visit * Reason Comments Generalized Weakness Encounter Details Date Type Department Care Team (Late st Contact Info) Description 2024 6:00 PM CONSULTING ANALYST - 2024 10:18 PM CONSULTING ANALYST Emergency [facility] Emergency Dept [address] [place] [address] Moris Petty MD EMERGENCY PHYSICIAN [facility] [address] [id number] COVID-19 virus infection; General weakness Discharge Disposition: Home or Self Care Social History Tobacco Use Types Packs/Day Years Used Date Smoking Tobacco: Never Assessed Sex and Gender Information Value Date Recorded Sex Assigned at Not on file Legal Sex Male 8:07 PM CDT Gender Identity Not on file Sexual Orientation Not on file documented as of this encounter Last Filed Vital Signs Vital Sign Reading Time Taken Comments Blood Pressure 134/77 2024 8:30 PM CONSULTING ANALYST Pulse 93 2024 8:30 PM CONSULTING ANALYST Temperature 36.8 C (98.3 F) 2024 6:04 PM CONSULTING ANALYST Respiratory Rate 18 2024 9:26 PM CONSULTING ANALYST Oxygen Saturation 95% 2024 8:16 PM CONSULTING ANALYST Inhaled Oxygen Concentration - - Weight 100.5 kg (221 lb 8 oz) 2024 6:04 PM CONSULTING ANALYST Height 182.9 cm (6') 2024 6:04 PM CONSULTING ANALYST Body Mass Index 30.04 2024 6:04 PM CONSULTING ANALYST documented in this encounter Discharge Instructions * Attachments The following attachments cannot be sent through Care Everywhere. * Weakness: Generalized (Estonian) * (s) Discharge Instructions for COVID-19 Patients (Estonian) documented in this encounter Medications at Time of Discharge albuterol (PROAIR HFA/PROVENTIL HFA/VENTOLIN HFA) 108 (90 Base) MCG/ACT inhaler Inhale 2 puffs into the lungs every 6 hours as needed for shortness of breath, wheezing or cough. 18 g 2024 documented as of this encounter ED Notes * Zuleika Dunne - 2024 8:45 PM CST Ambulated patient in llamas with walker,Pt had steady gate and no complaints. ULTING ANALYST * Moris Petty MD - 2024 6:55 PM CST Emergency Department Note History of Present Illness Chief Complaint Generalized Weakness HPI Neymar Pruett is a 79 year old male with a past medical history significant for hypertension, hyperlipidemia, VT and type 2 diabetes here with his for evaluation of generalized weakness. Patient reports onset of bilateral lower extremity weakness a few days ago. This worsened today. Reports some difficulty ambulating at baseline, however today reports significantly increased lethargy and weakness. Last night he was coughing frequently and vomiting. No sore throat, congestion, runny nose. He denies fever, headache, chest pain, abdominal pain, back pain, dysuria, urinary frequency, rashes, wounds. His and kids recently had cold symptoms. No asthma or COPD. Patient reports history of smoking, not currently. Independent Historian as detailed above. notes that she is also feeling like she has a cold and they recently had visitors that were sick. Review of External Notes None Past Medical History Medical History and Problem List Hypertension Hyperlipidemia Type 2 diabetes SELMA Spinal cord compression Peripheral neuropathy Balance disorder Hypercholesterolemia VT Medications Zocor Metoprolol succinate Aspirin 81 mg Metformin Surgical History Cholecystectomy Appendectomy Tonsillectomy and adenoidectomy Partial amputation and capsulotomy MTP joint of left second toe Hernia repair Physical Exam Patient Vitals for the past 24 hrs: BP Temp Temp src Pulse Resp SpO2 Height Weight 06/17/246 -- -- -- -- 18 -- -- -- 06/17/242029 134/77 -- -- 93 -- -- -- -- 06/17/242015 -- -- -- -- -- 95 % -- -- 06/17/242005 -- -- -- -- -- 96 % -- -- 06/17/24 195 (!) 144/73 -- -- -- -- 96 % -- -- 06/17/24 1936 -- -- -- 87 -- -- -- -- 06/17/241925 (!) 137/101 -- -- 85 -- -- -- -- 06/17/24 191 (!) 156/80 -- -- 86 -- -- -- -- 06/17/24 180 (!) 145/78 98.3 ??F (36.8 ??C) Oral 89 18 94 % 1.829 m (6') 100.5 kg (221 lb 8 oz) Physical Exam Vitals and nursing note reviewed. Constitutional: General: He is not in acute distress. Appearance: He is ill-appearing. He is not toxic-appearing. HENT: Head: Normocephalic and atraumatic. Right Ear: External ear normal. Left Ear: External ear normal. Nose: Nose normal. Eyes: Conjunctiva/sclera: Conjunctivae normal. Cardiovascular: Rate and Rhythm: Normal rate and regular rhythm. Pulses: Normal pulses. Heart sounds: No murmur heard. Pulmonary: Effort: Pulmonary effort is normal. No respiratory distress. Breath sounds: Wheezing present. No rhonchi or rales. Abdominal: General: Abdomen is flat. There is no distension. Palpations: Abdomen is soft. Tenderness: There is no abdominal tenderness. There is no guarding or rebound. Musculoskeletal: General: No swelling or deformity. Cervical back: Normal range of motion and neck supple. Skin: General: Skin is warm and dry. Findings: No rash. Neurological: Mental Status: He is alert and oriented to person, place, and time. Cranial Nerves: No cranial nerve deficit. Sensory: No sensory deficit. Motor: No weakness. Psychiatric: Behavior: Behavior normal. Diagnostics Lab Results Labs Ordered and Resulted from Time of ED Arrival to Time of ED Departure BASIC METABOLIC PANEL - Abnormal Result Value Sodium 133 (*) Potassium 4.4 Chloride 97 (*) Carbon Dioxide (CO2) 27 Anion Gap 9 Urea Nitrogen 20.3 Creatinine 1.20 (*) GFR Estimate 62 Calcium 10.5 (*) Glucose 221 (*) INFLUENZA A/B, RSV AND SARS-COV2 PCR - Abnormal Influenza A PCR Negative Influenza B PCR Negative RSV PCR Negative SARS CoV2 PCR Positive (*) ROUTINE UA WITH MICROSCOPIC REFLEX TO CULTURE - Abnormal Color Urine Yellow Appearance Urine Clear Glucose Urine >=1000 (*) Bilirubin Urine Negative Ketones Urine Negative Specific Midkiff Urine 1.021 Blood Urine Negative pH Urine 7.5 (*) Protein Albumin Urine 30 (*) Urobilinogen Urine Normal Nitrite Urine Negative Leukocyte Esterase Urine Negative Mucus Urine Present (*) RBC Urine 2 WBC Urine 3 CBC WITH PLATELETS AND DIFFERENTIAL - Abnormal WBC Count 11.6 (*) RBC Count 4.70 Hemoglobin 14.3 Hematocrit 42.3 MCV 90 MCH 30.4 MCHC 33.8 RDW 12.7 Platelet Count 185 % Neutrophils 81 % Lymphocytes 6 % Monocytes 12 % Eosinophils 0 % Basophils 0 % Immature Granulocytes 0 NRBCs per 100 WBC 0 Absolute Neutrophils 9.4 (*) Absolute Lymphocytes 0.7 (*) Absolute Monocytes 1.4 (*) Absolute Eosinophils 0.0 Absolute Basophils 0.1 Absolute Immature Granulocytes 0.1 Absolute NRBCs 0.0 TROPONIN T, HIGH SENSITIVITY - Abnormal Troponin T, High Sensitivity 39 (*) TROPONIN T, HIGH SENSITIVITY - Abnormal Troponin T, High Sensitivity 39 (*) TSH WITH FREE T4 REFLEX - Normal TSH 1.05 PROCALCITONIN - Normal Procalcitonin 0.11 Imaging XR Chest 2 Views Final Result IMPRESSION: Negative chest. EKG ECG results from 06/17/24 EKG 12-lead, tracing only Value Systolic Blood Pressure Diastolic Blood Pressure Ventricular Rate 91 Atrial Rate 91 FL Interval 162 QRS Duration 102 QT 362 QTc 445 P [place] 23 R AXIS 52 T Petersburg -56 Interpretation ECG Sinus rhythm with occasional Premature ventricular complexes Cannot rule out Anterior infarct , age undetermined ST & T wave abnormality, consider inferior ischemia Abnormal ECG No previous ECGs available Independent Interpretation CXR: No pneumothorax or infiltrate. ED Course Medications Administered Medications sodium chloride 0.9% BOLUS 1,000 mL (0 mLs Intravenous Stopped 06/17/242125) Procedures Procedures Discussion of Management None ED Course ED Course as of 06/17/242223 Roxy Jun 17, [id number] I obtained history and examined the patient as noted above. 2108 I rechecked and updated the patient. Additional Documentation None Medical Decision Making / Diagnosis [facility] Diagnoses: None MIPS None MDM Neymar Pruett is a 79 year old male who presents with general weakness for the past couple days. He is also had a cough and some vomiting. is also getting sick and they have had recent sick contacts. I suspect that he has some sort of viral illness such as influenza or COVID. Otherwise could be other infectious etiology such as pneumonia or UTI. He has no focal neurologic deficits to suggest a stroke. Workup was pursued as noted. He was positive for COVID. His troponin was mildly elevatedbut remained stable on recheck. He has no chest pain or other ischemic symptoms. Chest x-ray showedno pneumonia. UA showed no UTI. Patient was given IV fluids and was able to ambulate with a walker in the ED. Patient and feel that he is able to go home at this time. I did offer Paxlovid but they declined. Discussed return precautions and home care. We will give albuterol for home as well given the slight wheezing noted on exam in the ED. Disposition The patient was discharged. Diagnosis ICD-10-CM 1. COVID-19 virus infection U07.1 2. General weakness R53.1 Discharge Medications Discharge Medication List as of 2024 9:26 PM START taking these medications Details albuterol (PROAIR HFA/PROVENTIL HFA/VENTOLIN HFA) 108 (90 Base) MCG/ACT inhaler Inhale 2 puffs intothe lungs every 6 hours as needed for shortness of breath, wheezing or cough., Disp-18 g, R-0, E-PrescribePharmacy may dispense brand covered by insurance (Proair, or proventil or ventolin or genericalbuterol inhaler) Scribe Disclosure: I, Rima Davies, am serving as a scribe at 7:16 PM on 2024 to document services personally performed by Moris Petty MD based on my observations and the provider's statements to me. Moris Petty MD 06/17/242227 ULTING ANALYST * Elizabeth Peacock RN - 2024 6:03 PM CST Patient arrives via EMS. Patient reports 3 days of increased weakness and difficulty ambulating. Today patient was unable to get himself out of his chair. Patient normally walks with a cane. Patient denies pain, injury, or recent illness. Triage Assessment (Adult) Row Name 06/17/24 1802 Triage Assessment Airway WDL WDL Respiratory WDL Respiratory WDL WDL Skin Circulation/Temperature WDL Skin Circulation/Temperature WDL WDL Cardiac WDL Cardiac WDL WDL Peripheral/Neurovascular WDL Peripheral Neurovascular WDL WDL Cognitive/Neuro/Behavioral WDL Cognitive/Neuro/Behavioral WDL WDL ULTING ANALYST * Katia Mcgregor RN - 2024 6:00 PM CST Bed: ED29 Expected date: Expected time: Means of arrival: Comments: [facility] 79M ULTING ANALYST documented in this encounter Plan of Treatment Not on file documented as of this encounter Procedures Procedure Name Priority Date/Time Associated Diagnosis Comments ROUTINE UA WITH MICROSCOPIC REFLEX TO CULTURE STAT 2024 8:31 PM CONSULTING ANALYST TROPONIN T, HIGH SENSITIVITY STAT 2024 8:20 PM CONSULTING ANALYST XR CHEST 2 VIEWS STAT 2024 7:56 PM CONSULTING ANALYST INFLUENZA A/B, RSV AND SARS-COV2 PCR STAT 2024 6:35 PM CONSULTING ANALYST EXTRA TUBE STAT 2024 6:07 PM CONSULTING ANALYST EXTRA PURPLE TOP TUBE STAT 2024 6:07 PM CONSULTING ANALYST EXTRA GREEN TOP (LITHIUM HEPARIN) TUBE STAT 2024 6:07 PM CONSULTING ANALYST EXTRA RED TOP TUBE STAT 2024 6: 07 PM CONSULTING ANALYST EXTRA BLUE TOP TUBE STAT 2024 6 :07 PM CONSULTING ANALYST CBC WITH PLATELETS AND DIFFERENTIAL STAT 2024 6:07 PM CONSULTING ANALYST TROPONIN T, HIGH SENSITIVITY STAT 2024 6:07 PM CONSULTING ANALYST PROCALCITONIN STAT 2024 6:07 PM CONSULTING ANALYST CBC WITH PLATELETS & DIFFERENTIAL STAT 2024 6:07 PM CONSULTING ANALYST TSH WITH FREE T4 REFLEX STAT 2024 6:07 PM CONSULTING ANALYST BASIC METABOLIC PANEL STAT 2024 6:07 PM CONSULTING ANALYST EKG 12-LEAD, TRACING ONLY STAT 2024 6:04 PM CONSULTING ANALYST documented in this encounter Results * (ABNORMAL) UA with Microscopic reflex to Culture (2024 8:31 PM CONSULTING ANALYST) Color Urine Yellow Colorless, Straw, Light Yellow, Yellow 2024 8:52 PM CONSULTING ANALYST [facility] Appearance Urine Clear Clear 06/18/19 25 8:52 PM CONSULTING ANALYST [facility] Glucose Urine >=1000(A) Negative mg/dL 2024 8:52 PM CONSULTING ANALYST [facility] Bilirubin Urine Negative Negative 8:52 PM CONSULTING ANALYST [facility] Ketones Urine Negative Negative mg/dL 2024 8:52 PM CONSULTING ANALYST [facility] Specific [place]kiff Urine 1.021 1.003 - 1.035 2024 8:52 PM CONSULTING ANALYST [facility] Blood Urine Negative Negative 2024 8:52 PM CONSULTING ANALYST [facility] pH Urine 7.5(H) 5.0 - 7.0 2024 8:52 PM CONSULTING ANALYST [facility] Protein Albumin Urine 30(A) Negative mg/dL 2024 8:52 PM CONSULTING ANALYST [facility] Urobilinogen Urine Normal Normal, 2.0 mg/dL 2024 8:52 PM CONSULTING ANALYST [facility] Nitrite Urine Negative Negative 2024 8:52 PM CONSULTING ANALYST [facility] Leukocyte Esterase Urine Negative Negative 2024 8:52 PM CONSULTING ANALYST [facility] Mucus Urine Present(A) None Seen /LPF 2024 8:52 PM CONSULTING ANALYST [facility] RBC Urine 2 <=2 /HPF 2024 8:52 PM CONSULTING ANALYST [facility] WBC Urine 3 <=5 /HPF 2024 8:52 PM CONSULTING ANALYST [facility] Urine MID-STREAM URINE SPECIMEN / Unknown Non-blood Collection / Unknown 2024 8:31 PM CONSULTING ANALYST 2024 8:38 PM CONSULTING ANALYST Narrative [facility] - 2024 8:52 PM CONSULTING ANALYST Urine Culture not indicated us Sim Manzo MD LAB - URINE ORDERABLES F inal Result LABORATORY [facility] Acute Care Lab [address] [facility] Lab (1st floor, no room number) [place] [address] [[email or web address]] * (ABNORMAL) Troponin T, High Sensitivity (2024 8:20 PM CONSULTING ANALYST) Troponin T, High Sensitivity 39(H) <=22 ng/L 2024 8:56 PM CONSULTING ANALYST [facility] Comment: Either a High Sensitivity Troponin T baseline (0 hours) value = 100 ng/L, or an increase in High Sensitivity Troponin T = 7 ng/L at 2 hours compared to 0 hours (2-0 hours), suggests myocardial injury, and urgent clinical attention is required. If the 2-0 hours increase is <7 ng/L, a High Sensitivity Troponin T result above gender-specific reference ranges warrants further evaluation. Recommendations for further evaluation include correlation with clinical decision-making tool (e.g., HEART), a 3rd High Sensitivity Troponin T test 2 hours after the 2nd (a 20% change from baseline would represent concern), admission for observation, close PCC/cardiology follow-up, or urgent outpatient provocative testing. Blood VENOUS LINE / Unknown Venipuncture / Unknown 2024 8:20 PM CONSULTING ANALYST 2024 8:34 PM CONSULTING ANALYST Moris Petty MD LAB - BLOOD ORDERABLES Final Result LABORATORY [facility] Acute Care Lab [address] Lab (1st floor, no room number) [place] [address] [[email or web address]] * XR Chest 2 Views (2024 7:56 PM CONSULTING ANALYST) Anatomical Region Laterality Modality Chest Digital Radiogra phy 2024 7:56 PM CONSULTING ANALYST Impressions 2024 7:59 PM CONSULTING ANALYST IMPRESSION: Negative chest. Narrative 2024 7:59 PM CONSULTING ANALYST EXAM: XR CHEST 2 VIEWS LOCATION: [facility] DATE: 2024 INDICATION: cough, weakness COMPARISON: None. Procedure Note Samm iWlcox MD - 2024 EXAM: XR CHEST 2 VIEWS LOCATION: [facility] DATE: 2024 INDICATION: cough, weakness COMPARISON: None. IMPRESSION: Negative chest. Result [facility] Moris Petty MD IMG DIAGNOSTIC IMAGING ORDERA BLES Final Result * (ABNORMAL) Influenza A/B, RSV and SARS-CoV2 PCR (COVID-19) Nose (2024 6:35 PM CONSULTING ANALYST) Influenza A PCR Negative Negative 2024 7:27 PM CONSULTING ANALYST [facility] Influenza B PCR Negative Negative 2024 7:27 PM CONSULTING ANALYST [facility] RSV PCR Negative Negative 2024 7:27 PM CONSULTING ANALYST [facility] SARS CoV2 PCR Positive(A) Negative 2024 7:27 PM CONSULTING ANALYST LABORATORY Comment:POSITIVE: SARS-CoV-2 (COVID-19) RNA detected, presumed positive. Swab NASAL STRUCTURE / Unknown Non-blood Collection / Unknown 2024 6:35 PM CONSULTING ANALYST 2024 6:45 PM CONSULTING ANALYST [facility]ATORY - 2024 7:27 PM CONSULTING ANALYST Testing was performed using the Xpert Xpress CoV2/Flu/RSV Assay on the [employer] GeneXpert Instrument. This test should be ordered for the detection of SARS- CoV2, influenza, and RSV viruses in individuals with signs and symptoms of respiratory tract infection. This test is for in vitro diagnostic use under the [place] FDA for laboratories certified under CLIA to perform high or moderate complexity testing. This test has been [place] FDA cleared. A negative result does not rule out the presence of PCR inhibitors in the specimen or target RNA in concentration below the limit of detection for the assay. If only one viral target is positive but coinfection with multiple targets is suspected, the sample should be re-tested with another FDA cleared, approved, or authorized test, if coninfection would change clinical management. This test was validated by the [facility]. These laboratories are certified under the Clinical Laboratory Improvement Amendments of 1988 (CLIA-88) as qualified to perfom high complexity laboratory testing. us Sim Manzo MD LAB - MICRO [facility] Final Result [facility] Acute Care Lab [address] Lab (1st floor, no room number) [place] [address], [facility] * Procalcitonin (2024 6:07 PM CONSULTING ANALYST) Procalcitonin 0.11 <0.50 ng/mL 2024 7:58 PM CONSULTING ANALYST LABORATORY Comment: Interpretation and Recommendations <0.5 ng/mL: Systemic bacterial infection unlikely. Local bacterial infection is possible. 0.5-1.99 ng/mL: Systemic bacterial infection possible, but various other conditions are known to induce PCT as well. >=2.00 ng/mL: Systemic bacterial infection likely, unless other causes are known. Decision to start antibiotics should not be based on procalcitonin level alone. See Procalcitonin Guidance document for more details. [email or web address] Factors that may affect PCT levels (not all-inclusive): - Increased PCT level Severe trauma/gonzales Invasive surgery Cooling therapy after cardiac arrest/surgery Treatment with agents which stimulate cytokines Acute kidney injury Chronic kidney disease and end stage renal disease Acute graft vs host disease Non-specific shock causing decreased organ perfusion and/or infarction - Normal or unchanged PCT level Early in infections (if low and infection is suspected, repeating in 6-12 hours is recommended) Chronic infections (endocarditis, osteomyelitis, prosthetic device/graft infections) Localized infections (cellulitis, wound infections, intra-abdominal abscess) Note: PCT has not been extensively studied in /, pediatrics, severe immunosuppression, and cystic fibrosis. Blood STRUCTURE OF LEFT UPPER LIMB / Unknown Venipuncture / Unknown 2024 6:07 PM CONSULTING ANALYST 2024 6:12 PM CONSULTING ANALYST us Moris Petty MD LAB - BLOOD ORDERABLES Final Result [facility] Acute Care Lab [address] [facility] Lab (1st floor, no room number) [place] [address], [facility] * (ABNORMAL) Troponin T, High Sensitivity (2024 6:07 PM CONSULTING ANALYST) [facility] Troponin T, High Sensitivity 39(H) <=22 ng/L 2024 7:58 PM CONSULTING ANALYST LABORATORY Comment: Either a High Sensitivity Troponin T baseline (0 hours) value = 100 ng/L, or an increase in High Sensitivity Troponin T = 7 ng/L at 2 hours compared to 0 hours (2-0 hours), suggests myocardial injury, and urgent clinical attention is required. If the 2-0 hours increase is <7 ng/L, a High Sensitivity Troponin T result above gender-specific reference ranges warrants further evaluation. Recommendations for further evaluation include correlation with clinical decision-making tool (e.g., HEART), a 3rd High Sensitivity Troponin T test 2 hours after the 2nd (a 20% change from baseline would represent concern), admission for observation, close PCC/cardiology follow-up, or urgent outpatient provocative testing. Blood STRUCTURE OF LEFT UPPER LIMB / Unknown Venipuncture / Unknown 2024 6:07 PM CONSULTING ANALYST 2024 6:12 PM CONSULTING ANALYST us Moris Petty MD LAB - BLOOD ORDERABLES Final Result [facility] Acute Care Lab [address] Lab (1st floor, no room number) [place] [address], [facility] * (ABNORMAL) CBC with platelets and differential (2024 6:07 PM CONSULTING ANALYST) WBC Count 11.6(H) 4.0 - 11.0 10e3/uL 2024 6:33 PM CONSULTING ANALYST [facility] RBC Count 4.70 4.40 - 5.90 10e6/uL 2024 6:33 PM CONSULTING ANALYST [facility] Hemoglobin 14.3 13.3 - 17.7 g/dL 2024 6:33 PM CONSULTING ANALYST [facility] Hematocrit 42.3 40.0 - 53.0 % 2024 6:33 PM CONSULTING ANALYST [facility] MCV 90 78 - 100 fL 2024 6:33 PM CONSULTING ANALYST [facility] MCH 30.4 26.5 - 33.0 pg 2024 6:33 PM CONSULTING ANALYST [facility] MCHC 33.8 31.5 - 36.5 g/dL 2024 6:33 PM CONSULTING ANALYST [facility] RDW 12.7 10.0 - 15.0 % 2024 6:33 PM CONSULTING ANALYST [facility] Platelet Count 185 150 - 450 10e3/uL 2024 6:33 PM CONSULTING ANALYST [facility] % Neutrophils 81 % 2024 6:33 PM CONSULTING ANALYST [facility] % Lymphocytes 6 % 2024 6:33 PM CONSULTING ANALYST [facility] % Monocytes 12 % 2024 6:33 PM CONSULTING ANALYST [facility] % Eosinophils 0 % 2024 6:33 PM CONSULTING ANALYST [facility] % Basophils 0 % 2024 6:33 PM CONSULTING ANALYST [facility] % Immature Granulocytes 0 % 2024 6:33 PM CONSULTING ANALYST [facility] NRBCs per 100 WBC 0 <1 /100 025 6:33 PM CONSULTING ANALYST [facility] Absolute Neutrophils 9.4(H) 1.6 - 8.3 10e3/uL 2024 6:33 PM CONSULTING ANALYST [facility] Absolute Lymphocytes 0.7(L) 0.8 - 5.3 10e3/uL 2024 6:33 PM CONSULTING ANALYST [facility] Absolute Monocytes 1.4(H) 0.0 - 1.3 10e3/uL 2024 6:33 PM CONSULTING ANALYST [facility] Absolute Eosinophils 0.0 0.0 - 0.7 10e3/uL 2024 6:33 PM CONSULTING ANALYST [facility] Absolute Basophils 0.1 0.0 - 0.2 10e3/uL 2024 6:33 PM CONSULTING ANALYST [facility] Absolute Immature Granulocytes 0.1 <=0.4 10e3/uL 2024 6:33 PM CONSULTING ANALYST [facility] Absolute NRBCs 0.0 e3/uL 2024 6:33 PM CONSULTING ANALYST [facility] Blood STRUCTURE OF LEFT UPPER LIMB / Unknown Venipuncture / Unknown 2024 6:07 PM CONSULTING ANALYST 2024 6:12 PM CONSULTING ANALYST us Sim Manzo MD LAB - BLOOD ORDERABLES F inal Result [facility] Lab [address] Lab (1st floor, no room number) [place] [address], [facility] * TSH with free T4 reflex (2024 6:07 PM CONSULTING ANALYST) TSH 1.05 0.30 - 4.20 uIU/mL 2024 7:00 PM CONSULTING ANALYST [facility] Blood STRUCTURE OF LEFT UPPER LIMB / Unknown Venipuncture / Unknown 2024 6:07 PM CONSULTING ANALYST 2024 6:12 PM CONSULTING ANALYST Sim Manzo MD LAB - BLOOD ORDERABLES F inal Result [facility] Acute Care Lab [address] Lab (1st floor, no room number) [place] [address] [[email or web address]] * (ABNORMAL) Basic metabolic panel (2024 6:07 PM CONSULTING ANALYST) Sodium 133(L) 135 - 145 mmol/L 2024 6:55 PM CONSULTING ANALYST LABORATORY Potassium 4.4 3.4 - 5.3 mmol/L 2024 6:55 PM CONSULTING ANALYST LABORATORY Chloride 97(L) 98 - 107 mmol/L 2024 6:55 PM CONSULTING ANALYST LABORATORY Carbon Dioxide (CO2) 27 22 - 29 mmol/L 2024 6:55 PM CONSULTING ANALYST LABORATORY Anion Gap 9 7 - 15 mmol/L 2024 6:55 PM CONSULTING ANALYST LABORATORY Urea Nitrogen 20.3 8.0 - 23.0 mg/dL 2024 6:55 PM CONSULTING ANALYST LABORATORY Creatinine 1.20(H) 0.67 - 1.17 mg/dL 2024 6:55 PM CONSULTING ANALYST LABORATORY GFR Estimate 62 >60 mL/min/1.7 3m2 2024 6:55 PM CONSULTING ANALYST LABORATORY Comment:eGFR calculated usin 2020 CKD-EPI equation. Calcium 10.5(H) 8.8 - 10.4 mg/dL 2024 6:55 PM CONSULTING ANALYST LABORATORY Glucose 221(H) 70 - 99 mg/dL 2024 6:55 PM CONSULTING ANALYST LABORATORY Blood STRUCTURE OF LEFT UPPER LIMB / Unknown Venipuncture / Unknown 2024 6:07 PM CONSULTING ANALYST 2024 6:12 PM CONSULTING ANALYST us Sim Manzo MD LAB - BLOOD ORDERABLES F inal Result [facility] Acute Care Lab [address] Lab (1st floor, no room number) [place] [address], [facility] * Extra Purple Top Tube (2024 6:07 PM CONSULTING ANALYST) Hold Specimen JIC 2024 7:16 PM CONSULTING ANALYST RH LABORATORY Blood STRUCTURE OF LEFT UPPER LIMB / Unknown Venipuncture / Unknown 2024 6:07 PM CONSULTING ANALYST 2024 6:12 PM CONSULTING ANALYST us Moris Petty MD LAB - BLOOD ORDERABLES Final Result [facility] [address] Lab (1st floor, no room number) [place] [address] [[email or web address]] * Extra Green Top ([place] Heparin) Tube (2024 6:07 PM CONSULTING ANALYST) Hold Specimen [facility] 2024 7:16 PM CONSULTING ANALYST RH LABORATORY Blood STRUCTURE OF LEFT UPPER LIMB / Unknown Venipuncture / Unknown 2024 6:07 PM CONSULTING ANALYST 2024 6:12 PM CONSULTING ANALYST us Mrois Petty MD LAB - BLOOD ORDERABLES Final Result Performing Organization Address [facility]/ZIP Co de Phone Number [facility] [address] Lab (1st floor, no room number) [place] [address], [facility] * Extra Red Top Tube (2024 6:07 PM CONSULTING ANALYST) Hold Specimen [facility] 2024 7:16 PM CONSULTING ANALYST RH LABORATORY Blood STRUCTURE OF LEFT UPPER LIMB / Unknown Venipuncture / Unknown 2024 6:07 PM CONSULTING ANALYST 2024 6:12 PM CONSULTING ANALYST us Moris Petty MD LAB - BLOOD ORDERABLES Final Result [facility] [address] Lab (1st floor, no room number) [place] [address], [facility] * Extra Blue Top Tube (2024 6:07 PM CONSULTING ANALYST) Hold Specimen [facility] 2024 7:16 PM CONSULTING ANALYST LABORATORY Blood STRUCTURE OF LEFT UPPER LIMB / Unknown Venipuncture / Unknown 2024 6:07 PM CONSULTING ANALYST 2024 6:12 PM CONSULTING ANALYST Moris Petty MD LAB - BLOOD ORDERABLES Final Result LABORATORY [facility] Acute Care Lab [address] Lab (1st floor, no room number) [place] [address] [[email or web address]] * EKG 12-lead, tracing only (2024 6:04 PM CONSULTING ANALYST) Systolic Blood Pressure mmHg RADIOLOGY RESULTS Diastolic Blood Pressure mmHg RADIOLOGY RESULTS Ventricular Rate 91 BPM RAD IOLOGY RESULTS Atrial Rate 91 BPM RADIOLOG Y RESULTS FL Interval 162 ms RADIOLOG Y RESULTS QRS Duration 102 ms RADIOLO GY RESULTS QT 362 ms RADIOLOGY RESULTS QTc 445 ms RADIOLOGY RESULTS P [place] 23 degrees RADIOLOGY RESULTS R AXIS 52 degrees RADIOLOGY RESULTS T [place] -56 degrees RADIOLOGY RESULTS Interpretation ECG Sinus rhythm with occasional Premature ventricular complexes Cannot rule out Anterior infarct , age undetermined ST & T wave abnormality, consider inferior ischemia Abnormal ECG No previous ECGs available Confirmed by - EMERGENCY ROOM, PHYSICIAN ([id number]), DEBORAH Laughlin ([id number]) on 06/18/2024 6:48:35 AM Also confirmed by - EMERGENCY ROOM, PHYSICIAN ([id number]), DEBORAH Laughlin ([id number]) on 06/18/2024 6:48:48 AM RADIOLOGY RESULTS 2024 6:04 PM CONSULTING ANALYST 06/18/2024 6:48 AM CONSULTING ANALYST Victor Manuel Encinas MD ECG ORDERABLES Edited Resul t - Final RADIOLOGY RESULTS documented in this encounter Visit Diagnoses Diagnosis COVID-19 virus infection General weakness Other malaise and fatigue documented in this encounter Administered Medications Inactive Administered Medications - up to 3 most recent administrations Medication Order MAR Action Action Date Dose Rate Site sodium chloride 0.9% BOLUS 1,000 mL Intravenous, 1,000 mL, ONCE, at 500 mL/hr, Administer over 2 Hours, On Roxy 06/17/24 at 1925, For 1 dose $New Bag 2024 7:28 PM CONSULTING ANALYST 1,000 mLs 500 mL/hr documented in this encounter Active and Recently Administered Medications Times are shown in CONSULTING ANALYST. Scheduled Medication Order 06/15/2024 06/16/2024 2024 sodium chloride 0.9% BOLUS 1,000 mL (COMPLETED) Intravenous, 1,000 mL, ONCE, at 500 mL/hr, Administer over 2 Hours, On Roxy 06/17/24 at 1925, For 1 dose 1928 ($New Bag - Pro vider: Milady Shelby RN)[id number] (Stopped - Provider: Jazz Roque RN) documented in this encounter Additional Health Concerns Infection Onset Date Last Indicated Resolved Time Rule Out COVID-19 2024 2024 2024 7:27 PM CONSULTING ANALYST COVID-19 2024 2024 06/28/2024 11:3 9 PM CDT documented as of this encounter Care Teams Poker In Relationship Specialty Start Date End Date System, Provider Not In PCP - General Clinic 06/17/24 documented as of this encounter
--- OUTSIDE RECORDS SUMMARY | 2024-06-29 13:22 | XMS_ITS | Referral Summary ---
Author Organization [facility] Address [address] [place] [address] Care Team Providers Care Fruit I Farmworker Name Role Phone Rosamaria Lane MD Unavailable [phone] [facility], [place] Unavailable Unavailable Allergies Active Allergy Reactions [...] long-term current use of insulin (HCC) by [facility].(Non-Drug ; Combo Route) route once daily. Accu-chek Fastclix. 100 each 3 1 Active pen needle, diabetic (BD INSULIN PEN NEEDLE UF) 31 gauge x 5/16 needleIndications :Type 2 diabetes mellitus with stage 3a chronic kidney disease, with long-term current use of insulin (HCC) by [facility].(Non-Drug ; Combo Route) route once daily. 100 [...] artery using a 2.5x15mm balloon followed by 2.66c06ly B Velocity stent. *08/10/2002- Angiogram complete. 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 Respiratory Rate 14 10/01/2010 8:30 AM CDT Oxygen Saturation 97% 12/03/2019 10:58 AM CDT Inhaled Oxygen Concentration - - Weight 103.4 kg (228 lb) 10/22/2022 1:14 PM CDT Height 177.2 cm (5' 9.75) 10/22/2022 1:14 PM CD T Body Mass Index 32.95 10/22/2022 1:14 PM CDT Plan of Treatment Not on file Procedures Procedure Name Priority Date/Time Associated Diagnosis [...] HGBA1C OP 6.8(H) 3.8 - 5.6 % [facility] Blood VENOUS BLOOD SPECIMEN / Unknown 01/26/2021 1:32 PM CDT Nargis Contreras MD CHEMISTRY ORDERABLE Final Resu lt [facility] [address] [address], * (ABNORMAL) BASIC METAB PROFILE (01/26/2021 1:32 PM CDT) GLUCOSE CASUAL OP 100.0(H) 70.0 - 99.0 mg/dL [facility] BUN 16.0 7.0 - 18.0 mg/dL [facility] CREATININE 1.33(H) 0.60 - 1.30 mg/dL [facility] CALCIUM 9.3 8.5 - 10.1 mg/dL [facility] SODIUM 139.0 136.0 - 145.0 mmol/L [facility] POTASSIUM 4.2 3.5 - 5.1 mmol/L [facility] CHLORIDE 102.0 98.0 - 107.0 mmol/L [facility] CO2 26.1 21.0 - 32.0 mmol/L [facility] EST GFR (MDRD) 52.7 [facility] Comment: Calculated GFR for the patient 18 [...] SPECIMEN / Unknown 01/26/2021 1:32 PM CDT us Nargis Contreras MD CHEMISTRY ORDERABLE Final Resu lt [facility] [address] [address], * HEP C ANTIBODY (01/02/2017 11:09 AM CDT) Hepatitis C Antibody Non-Reacti ve Non-Reacti ve 01/03/2017 11:52 AM CDT [facility] Blood VENOUS BLOOD SPECIMEN / Unknown 01/02/2017 11:09 AM CDT 01/03/2017 10:52 AM CDT Allan Wilder MD IMMUNOLOGY ORDERABLE Final Resul t Performing Organization Address City/[facility] Co de Phone Number [facility] [address] [place] [address] from Last 3 Months or Most Recently Relevant to Health Maintenance Insurance [facility] MEDICARE ADVANTAGE [address] [place] [id number] MEDICARE PART A & B [employer] MEDICARE ADVANTAGE Advance Directives For more information, please contact: [phone] Documents on File Type Date Recorded 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
--- OUTSIDE RECORDS SUMMARY | 2024-06-29 13:22 | XMS_ITS | Clinical Summary ---
Author Organization [facility] Address [address] [place] [address] Care Team Providers Care Pot Feeder Name Role Phone System, Provider Not In Primary Care Provider Un available Allergies Active Allergy Reactions Criticality Noted Date Comments Oxycodone-Acetaminophen Other (See Comments) Low Patient stated he feels beside himself (anxiety type reaction) Patient stated he feels beside himself (anxiety type reaction) Patient stated he feels beside himself (anxiety type reaction) Penicillins Nausea,Rash Medium 07/31/2010 Other reaction(s): Hives Medications albuterol (PROAIR HFA/PROVENTIL HFA/VENTOLIN HFA) 108 (90 Base) MCG/ACT inhaler Inhale 2 puffs into the lungs every 6 hours as needed for shortness of breath, wheezing or cough. 18 g Active Encounters Date Type Department Care Team Description 2024 6:00 PM APARTMENT LEASING AGENT - 2024 10:18 PM [facility] Emergency [facility] Emergency Dept [address] [place] [address] Moris Petty MD COVID-19 virus infection; General weakness Discharge Disposition: Home or Self Care 2024 Travel from Last 3 Months Social History Tobacco Use Types Packs/Day Years Used Date Smoking Tobacco: Never Assessed Sex and Gender Information Value Date Recorded Sex Assigned at Not on file Legal Sex Male 8:07 PM CDT Gender Identity Not on file Sexual Orientation Not on file Last Filed Vital Signs Vital Sign Reading Time Taken Comments Blood Pressure 134/77 2024 8:30 PM APARTMENT LEASING AGENT Pulse 93 2024 8:30 PM APARTMENT LEASING AGENT Temperature 36.8 C (98.3 F) 2024 6:04 PM APARTMENT LEASING AGENT Respiratory Rate 18 2024 9:26 PM APARTMENT LEASING AGENT Oxygen Saturation 95% 2024 8:16 PM APARTMENT LEASING AGENT Inhaled Oxygen Concentration - - Weight 100.5 kg (221 lb 8 oz) 2024 6:04 PM APARTMENT LEASING AGENT Height 182.9 cm (6') 2024 6:04 PM APARTMENT LEASING AGENT Body Mass Index 30.04 2024 6:04 PM APARTMENT LEASING AGENT Plan of Treatment Health Maintenance Due Date Last Done Comments ADVANCE CARE PLANNING 1947 ANNUAL REVIEW OF HM ORDERS 1947 LIPID 1987 FALL RISK ASSESSMENT 06/16/2012 MEDICARE ANNUAL WELLNESS VISIT 02/07/2021 02/08/2020, 01/18/2019, 01/12/2018, Additional history exists RSV VACCINE (1 - 1-dose 75+ series) 06/16/2022 PHQ-2 (once per calendar year) 2024 COVID-19 Vaccine ( season) 2024 12/24/2023, 02/05/2023, 02/05/2022, Additional history exists GLUCOSE 06/18/2027 2024 DTAP/TDAP/TD IMMUNIZATION (4 - Td or Tdap) 09/01/2029 09/02/2019, 08/16/2009, 08/16/2009 Pneumococcal Vaccine: 50+ Years Completed 01/15/2016, 06/02/2014, 05/23/2014, Additional history exists HEPATITIS C SCREENING Completed 01/02/2017 ZOSTER IMMUNIZATION Completed 06/03/2018, 05/25/2018, 01/29/2018 INFLUENZA VACCINE Completed 12/24/2023, , 12/09/2021, Additional history exists HPV IMMUNIZATION Aged Out No longer e ligible based on patient's age to complete this topic MENINGITIS IMMUNIZATION Aged Out No l onger eligible based on patient's age to complete this topic Procedures Procedure Name Priority Date/Time Associated Diagnosis Comments ROUTINE UA WITH MICROSCOPIC REFLEX TO CULTURE STAT 2024 8:31 PM APARTMENT LEASING AGENT TROPONIN T, HIGH SENSITIVITY STAT 2024 8:20 PM APARTMENT LEASING AGENT XR CHEST 2 VIEWS STAT 2024 7:56 PM APARTMENT LEASING AGENT INFLUENZA A/B, RSV AND SARS-COV2 PCR STAT 2024 6:35 PM APARTMENT LEASING AGENT CBC WITH PLATELETS & DIFFERENTIAL STAT 2024 6:07 PM APARTMENT LEASING AGENT PROCALCITONIN STAT 2024 6:07 PM APARTMENT LEASING AGENT TROPONIN T, HIGH SENSITIVITY STAT 2024 6:07 PM APARTMENT LEASING AGENT CBC WITH PLATELETS AND DIFFERENTIAL STAT 2024 6:07 PM APARTMENT LEASING AGENT TSH WITH FREE T4 REFLEX STAT 2024 6:07 PM APARTMENT LEASING AGENT BASIC METABOLIC PANEL STAT 2024 6:07 PM APARTMENT LEASING AGENT EXTRA PURPLE TOP TUBE STAT 2024 6:07 PM APARTMENT LEASING AGENT EXTRA GREEN TOP (LITHIUM HEPARIN) TUBE STAT 2024 6:07 PM APARTMENT LEASING AGENT EXTRA RED TOP TUBE STAT 2024 6: 07 PM APARTMENT LEASING AGENT EXTRA BLUE TOP TUBE STAT 2024 6 :07 PM APARTMENT LEASING AGENT EXTRA TUBE STAT 2024 6:07 PM APARTMENT LEASING AGENT EKG 12-LEAD, TRACING ONLY STAT 2024 6:04 PM APARTMENT LEASING AGENT from Last 3 Months Results * (ABNORMAL) UA with Microscopic reflex to Culture (2024 8:31 PM APARTMENT LEASING AGENT) Color Urine Yellow Colorless, Straw, Light Yellow, Yellow 2024 8:52 PM APARTMENT LEASING AGENT [facility] Appearance Urine Clear Clear 06/18/19 8:52 PM APARTMENT LEASING AGENT LABORATORY Glucose Urine >=1000(A) Negative mg/dL 2024 8:52 PM APARTMENT LEASING AGENT LABORATORY Bilirubin Urine Negative Negative 8:52 PM APARTMENT LEASING AGENT LABORATORY Ketones Urine Negative Negative mg/dL 2024 8:52 PM APARTMENT LEASING AGENT LABORATORY Specific [place] Urine 1.021 1.003 - 1.035 2024 8:52 PM APARTMENT LEASING AGENT LABORATORY Blood Urine Negative Negative 2024 8:52 PM APARTMENT LEASING AGENT LABORATORY pH Urine 7.5(H) 5.0 - 7.0 2024 8:52 PM APARTMENT LEASING AGENT LABORATORY Protein Albumin Urine 30(A) Negative mg/dL 2024 8:52 PM APARTMENT LEASING AGENT LABORATORY Urobilinogen Urine Normal Normal, 2.0 mg/dL 2024 8:52 PM APARTMENT LEASING AGENT LABORATORY Nitrite Urine Negative Negative 2024 8:52 PM APARTMENT LEASING AGENT LABORATORY Leukocyte Esterase Urine Negative Negative 2024 8:52 PM APARTMENT LEASING AGENT LABORATORY Mucus Urine Present(A) None Seen /LPF 2024 8:52 PM APARTMENT LEASING AGENT LABORATORY RBC Urine 2 <=2 /HPF 2024 8:52 PM APARTMENT LEASING AGENT LABORATORY WBC Urine 3 <=5 /HPF 2024 8:52 PM APARTMENT LEASING AGENT LABORATORY Urine MID-STREAM URINE SPECIMEN / Unknown Non-blood Collection / Unknown 2024 8:31 PM APARTMENT LEASING AGENT 2024 8:38 PM APARTMENT LEASING AGENT Narrative LABORATORY - 2024 8:52 PM APARTMENT LEASING AGENT Urine Culture not indicated us Sim Manzo MD LAB - URINE ORDERABLES F inal Result LABORATORY [facility] [address] [facility] Lab (1st floor, no room number) [place] [address], [facility] * (ABNORMAL) Troponin T, High Sensitivity (2024 8:20 PM APARTMENT LEASING AGENT) Only the most recent of2 resultswithin the time period is included. Troponin T, High Sensitivity 39(H) <=22 ng/L 2024 8:56 PM APARTMENT LEASING AGENT LABORATORY Comment: Either a High Sensitivity Troponin [...] Unknown Venipuncture / Unknown 2024 8:20 PM APARTMENT LEASING AGENT 2024 8:34 PM APARTMENT LEASING AGENT Moris Petty MD LAB - BLOOD ORDERABLES Final Result [facility] Lab [address] [facility] Lab (1st floor, no room number) [place] [address] * XR Chest 2 Views (2024 7:56 PM APARTMENT LEASING AGENT) Anatomical Region Laterality Modality Chest Digital Radiogra phy 2024 7:56 PM APARTMENT LEASING AGENT Impressions 2024 7:59 PM APARTMENT LEASING AGENT IMPRESSION: Negative chest. Narrative 2024 7:59 PM APARTMENT LEASING AGENT EXAM: XR CHEST 2 VIEWS LOCATION: [facility] DATE: 2024 INDICATION: cough, weakness COMPARISON: None. Procedure Note Samm Wilcox MD - 2024 EXAM: XR CHEST 2 VIEWS LOCATION: [facility] DATE: 2024 INDICATION: cough, weakness COMPARISON: None. IMPRESSION: Negative chest. Moris Petty MD IMG DIAGNOSTIC IMAGING ORDERA BLES Final Result * (ABNORMAL) Influenza A/B, RSV and SARS-CoV2 PCR (COVID-19) Nose (2024 6:35 PM APARTMENT LEASING AGENT) Influenza A PCR Negative Negative 2024 7:27 PM APARTMENT LEASING AGENT [facility] Influenza B PCR Negative Negative 2024 7:27 PM APARTMENT LEASING AGENT [facility] RSV PCR Negative Negative 2024 7:27 PM APARTMENT LEASING AGENT LABORATORY SARS CoV2 PCR Positive(A) Negative 2024 7:27 PM APARTMENT LEASING AGENT LABORATORY Comment:POSITIVE: SARS-CoV-2 (COVID-19) RNA detected, presumed positive. Swab NASAL STRUCTURE / Unknown Non-blood Collection / Unknown 2024 6:35 PM APARTMENT LEASING AGENT 2024 6:45 PM APARTMENT LEASING AGENT [facility] LABORATORY - 2024 7:27 PM APARTMENT LEASING AGENT Testing was performed using the Xpert Xpress CoV2/Flu/RSV Assay on the FirstJobXpert Instrument. This test should be ordered for [...] management. This test was validated by the [facility]. These laboratories are certified under the Clinical Laboratory Improvement Amendments of 1988 (CLIA-88) as qualified to perfom high complexity laboratory testing. us Sim Manzo MD LAB - MICRO GENERAL ORDIraj NOGUERA Final Result [facility] Lab [address] Lab (1st floor, no room number) [place] [address], [facility] * Extra Purple Top Tube (2024 6:07 PM APARTMENT LEASING AGENT) Hold Specimen [facility] 2024 7:16 PM APARTMENT LEASING AGENT [facility] Blood STRUCTURE OF LEFT UPPER LIMB / Unknown Venipuncture / Unknown 2024 6:07 PM APARTMENT LEASING AGENT 2024 6:12 PM APARTMENT LEASING AGENT us Moris Petty MD LAB - BLOOD ORDERABLES Final Result [facility] [address] Lab (1st floor, no room number) [place] [address] * Extra Green Top (Soddy-Daisy Heparin) Tube (2024 6:07 PM APARTMENT LEASING AGENT) Hold Specimen [facility] 2024 7:16 PM APARTMENT LEASING AGENT [facility] Blood STRUCTURE OF LEFT UPPER LIMB / Unknown Venipuncture / Unknown 2024 6:07 PM APARTMENT LEASING AGENT 2024 6:12 PM APARTMENT LEASING AGENT us Moris Petty MD LAB - BLOOD ORDERABLES Final Result [facility] Lab [address] Lab (1st floor, no room number) [place] [address], [facility] * Extra Red Top Tube (2024 6:07 PM APARTMENT LEASING AGENT) Hold Specimen [facility] 2024 7:16 PM APARTMENT LEASING AGENT [facility] Blood STRUCTURE OF LEFT UPPER LIMB / Unknown Venipuncture / Unknown 2024 6:07 PM APARTMENT LEASING AGENT 2024 6:12 PM APARTMENT LEASING AGENT us Moris Petty MD LAB - BLOOD ORDERABLES Final Result [facility] [address] Lab (1st floor, no room number) [place] [address], [facility] * Extra Blue Top Tube (2024 6:07 PM APARTMENT LEASING AGENT) Hold Specimen JIC 2024 7:16 PM APARTMENT LEASING AGENT [facility] Blood STRUCTURE OF LEFT UPPER LIMB / Unknown Venipuncture / Unknown 2024 6:07 PM APARTMENT LEASING AGENT 2024 6:12 PM APARTMENT LEASING AGENT us Moris Petty MD LAB - BLOOD ORDERABLES Final Result [facility] [address] Lab (1st floor, no room number) [place] [address], [facility] * (ABNORMAL) CBC with platelets and differential (2024 6:07 PM APARTMENT LEASING AGENT) WBC Count 11.6(H) 4.0 - 11.0 10e3/uL 2024 6:33 PM APARTMENT LEASING AGENT [facility] RBC Count 4.70 4.40 - 5.90 10e6/uL 2024 6:33 PM APARTMENT LEASING AGENT [facility] Hemoglobin 14.3 13.3 - 17.7 g/dL 2024 6:33 PM APARTMENT LEASING AGENT [facility] Hematocrit 42.3 40.0 - 53.0 % 2024 6:33 PM APARTMENT LEASING AGENT [facility] MCV 90 78 - 100 fL 2024 6:33 PM APARTMENT LEASING AGENT [facility] MCH 30.4 26.5 - 33.0 pg 2024 6:33 PM APARTMENT LEASING AGENT [facility] MCHC 33.8 31.5 - 36.5 g/dL 2024 6:33 PM APARTMENT LEASING AGENT [facility] RDW 12.7 10.0 - 15.0 % 2024 6:33 PM APARTMENT LEASING AGENT [facility] Platelet Count 185 150 - 450 10e3/uL 2024 6:33 PM APARTMENT LEASING AGENT [facility] % Neutrophils 81 % 2024 6:33 PM APARTMENT LEASING AGENT [facility] % Lymphocytes 6 % 2024 6:33 PM APARTMENT LEASING AGENT [facility] % Monocytes 12 % 2024 6:33 PM APARTMENT LEASING AGENT [facility] % Eosinophils 0 % 2024 6:33 PM APARTMENT LEASING AGENT [facility] % Basophils 0 % 2024 6:33 PM APARTMENT LEASING AGENT [facility] % Immature Granulocytes 0 % 2024 6:33 PM APARTMENT LEASING AGENT [facility] NRBCs per 100 WBC 0 <1 /100 025 6:33 PM APARTMENT LEASING AGENT [facility] Absolute Neutrophils 9.4(H) 1.6 - 8.3 10e3/uL 2024 6:33 PM APARTMENT LEASING AGENT [facility] Absolute Lymphocytes 0.7(L) 0.8 - 5.3 10e3/uL 2024 6:33 PM APARTMENT LEASING AGENT LABORATORY Absolute Monocytes 1.4(H) 0.0 - 1.3 10e3/uL 2024 6:33 PM APARTMENT LEASING AGENT LABORATORY Absolute Eosinophils 0.0 0.0 - 0.7 10e3/uL 2024 6:33 PM APARTMENT LEASING AGENT LABORATORY Absolute Basophils 0.1 0.0 - 0.2 10e3/uL 2024 6:33 PM APARTMENT LEASING AGENT LABORATORY Absolute Immature Granulocytes 0.1 <=0.4 10e3/uL 2024 6:33 PM APARTMENT LEASING AGENT LABORATORY Absolute NRBCs 0.0 10e3/uL 2024 6:33 PM APARTMENT LEASING AGENT LABORATORY Blood STRUCTURE OF LEFT UPPER LIMB / Unknown Venipuncture / Unknown 2024 6:07 PM APARTMENT LEASING AGENT 2024 6:12 PM APARTMENT LEASING AGENT us Sim Manzo MD LAB - BLOOD ORDERABLES F inal Result LABORATORY [facility] [address] [facility] Lab (1st floor, no room number) [place] [address] * Procalcitonin (2024 6:07 PM APARTMENT LEASING AGENT) [facility] Procalcitonin 0.11 <0.50 ng/mL 2024 7:58 PM APARTMENT LEASING AGENT LABORATORY Comment: Interpretation and Recommendations <0.5 ng/mL: Systemic bacterial infection unlikely. Local bacterial infection is possible. 0.5-1.99 ng/mL: Systemic bacterial infection possible, but various other conditions are known to induce PCT as well. >=2.00 ng/mL: Systemic bacterial infection likely, unless other causes are known. Decision to start antibiotics should not be based on procalcitonin level alone. See Procalcitonin Guidance document for more details. [email or web address] [email or web address] Factors that may affect PCT levels (not [...] Unknown Venipuncture / Unknown 2024 6:07 PM APARTMENT LEASING AGENT 2024 6:12 PM APARTMENT LEASING AGENT us Moris Petty MD LAB - BLOOD ORDERABLES Final Result Performing Organization Address [facility]/ZIP Co de Phone Number [facility] [address] Lab (1st floor, no room number) [place] [address] * TSH with free T4 reflex (2024 6:07 PM APARTMENT LEASING AGENT) TSH 1.05 0.30 - 4.20 uIU/mL 2024 7:00 PM APARTMENT LEASING AGENT LABORATORY Blood STRUCTURE OF LEFT UPPER LIMB / Unknown Venipuncture / Unknown 2024 6:07 PM APARTMENT LEASING AGENT 2024 6:12 PM APARTMENT LEASING AGENT us Sim Manzo MD LAB - BLOOD ORDERABLES F inal Result Performing Organization Address City/[facility]/ZIP Co de Phone Number [facility] [address] Lab (1st floor, no room number) [place] [address] * (ABNORMAL) Basic metabolic panel (2024 6:07 PM APARTMENT LEASING AGENT) [facility] Sodium 133(L) 135 - 145 mmol/L 2024 6:55 PM APARTMENT LEASING AGENT LABORATORY Potassium 4.4 3.4 - 5.3 mmol/L 2024 6:55 PM APARTMENT LEASING AGENT LABORATORY Chloride 97(L) 98 - 107 mmol/L 2024 6:55 PM APARTMENT LEASING AGENT LABORATORY Carbon Dioxide (CO2) 27 22 - 29 mmol/L 2024 6:55 PM APARTMENT LEASING AGENT LABORATORY Anion Gap 9 7 - 15 mmol/L 2024 6:55 PM APARTMENT LEASING AGENT LABORATORY Urea Nitrogen 20.3 8.0 - 23.0 mg/dL 2024 6:55 PM APARTMENT LEASING AGENT LABORATORY Creatinine 1.20(H) 0.67 - 1.17 mg/dL 2024 6:55 PM APARTMENT LEASING AGENT LABORATORY GFR Estimate 62 >60 mL/min/1.7 3m2 2024 6:55 PM APARTMENT LEASING AGENT LABORATORY Comment:eGFR calculated 2020 CKD-EPI equation. Calcium 10.5(H) 8.8 - 10.4 mg/dL 2024 6:55 PM APARTMENT LEASING AGENT LABORATORY Glucose 221(H) 70 - 99 mg/dL 2024 6:55 PM APARTMENT LEASING AGENT LABORATORY Blood STRUCTURE OF LEFT UPPER LIMB / Unknown Venipuncture / Unknown 2024 6:07 PM APARTMENT LEASING AGENT 2024 6:12 PM APARTMENT LEASING AGENT us Sim Manzo MD LAB - BLOOD ORDERABLES F inal Result LABORATORY [facility] [address] Lab (1st floor, no room number) [place] [address], [facility] * EKG 12-lead, tracing only (2024 6:04 PM APARTMENT LEASING AGENT) [facility] Systolic Blood Pressure mmHg RADIOLOGY RESULTS Diastolic Blood Pressure mmHg RADIOLOGY RESULTS Ventricular Rate 91 BPM RAD IOLOGY RESULTS Atrial Rate 91 BPM RADIOLOG Y RESULTS MT Interval 162 ms RADIOLOG Y RESULTS QRS Duration 102 ms RADIOLO GY RESULTS QT 362 ms RADIOLOGY RESULTS QTc 445 ms RADIOLOGY RESULTS P Parrott 23 degrees RADIOLOGY RESULTS R AXIS 52 degrees RADIOLOGY RESULTS T Parrott -56 degrees RADIOLOGY RESULTS Interpretation ECG Sinus rhythm with occasional Premature ventricular complexes Cannot rule out Anterior infarct , age undetermined ST & T wave abnormality, consider inferior ischemia Abnormal ECG No previous ECGs available Confirmed by - EMERGENCY ROOM, PHYSICIAN ([id number]), editor house organ DEBORAH GONZALEZ ([id number]) on 06/18/2024 6:48:35 AM Also confirmed by - EMERGENCY ROOM, PHYSICIAN ([id number]), editor house organ DEBORAH GONZALEZ ([id number]) on 06/18/2024 6:48:48 AM RADIOLOGY RESULTS 2024 6:04 PM APARTMENT LEASING AGENT 06/18/2024 6:48 AM APARTMENT LEASING AGENT us Victor Manuel Encinas MD ECG ORDERABLES Edited Resul t - Final RADIOLOGY RESULTS from Last 3 Months Insurance [facility] MEDICARE ADVANTAGE [facility] MEDICARE ADVANTAGE Care Teams Pot Feeder Relationship Specialty Start Date End Date System, Provider Not In PCP - General Clinic 06/17/24
--- OUTSIDE RECORDS SUMMARY | 2024-06-29 13:22 | XMS_ITS | Clinical Summary ---
Author Organization [facility] Address [address] , [address] [place] [address] Phone Care Team Providers Care Parachute Rigger Name Role Phone 3CareTeamCoordinator, 3CareTeamCoordinator Unava ilable Unavailable Conditions or Problems Problem Name Problem Code Onset Date Status Entry Date Provider Comment Standard Description Annotate Mild cognitive impairment 674551177 (SNOMED CT) Active 09/08 Summer Jamil PhD Mild neurocognitive disorder Spinal stenosis of lumbar region 90634201 (SNOMED CT) Active 11/07 Nellie Connelly MD Spinal stenosis of lumbar region Tremor, essential 523094572 (SNOMED CT) Active 11/07 Nellie Connelly MD Essential tremor Peripheral neuropathy 377114345 (SNOMED CT) Active 12/12 Beltran Rosenberg MD Peripheral nerve disease Gait imbalance 75022120 (SNOMED CT) Active 05/05 Beltran Rosenberg MD Abnormal gait Memory problems R41.3 (ICD-10-CM) Active 05/05 Beltran Rosenberg MD Other amnesia Medications Medication Instructions Start Date Stop Date Generic Name NDC Provider ARICEPT 5 MG TABS Take 1 tab by mouth once a day x1 month, then 10 mg daily thereafter 8 donepezil [id number] Bianca Ybarra PA-C TRESIBA FLEXTOUCH 100 UNIT/ML SOPN insulin degludec [id number] Bianca Ybarra PA-C TAMSULOSIN HCL 0.4 MG CAPS tamsulosin [id number] Bianca Ybarra PA-C SIMVASTATIN 10 MG TABS simvastatin [id number] Bianca Mehlhaus PA-C ASPIRIN LOW DOSE 81 MG TBEC TAKE 1 TABLET BY MOUTH DAILY aspirin [id number] Bianca MOON-Zeke METFORMIN HCL ER 500 MG [id number] metformin (glucophage xr) [id number] Bianca Ybarra PA-C GABAPENTIN 300 MG CAPS Take 1 po BID 1 gabapentin [id number] Nellie Connelly MD Medications Administered No information available. Allergies, Adverse Reactions, Alerts Allergy Name Reaction Description Start Date Severity Statu s Provider OXYCODONE Critical Active Bianca rizzoaus PA-C PENICILLIN Critical Active [facility] Results Date Name Value Unit Range Flag Description Lab Report: (P) TSH, VITAMIN B12, VITAMIN B1 (THIAMINE), BLOOD, LC/MS/MS VIT B1 PLSM * ug/L Vitamin B 1 (thiamine), plasma B-12 486 pg/mL 200-1100 N Cobalamin (V itamin B12) [Mass/volume] in Serum or Plasma TSH 1.13 u[iU]/mL 0.40-4.50 N Thyrotropi n [Units/volume] in Serum or Plasma Internal Other: Authorizatio n - OBS [email or web address] Yes Authoriza tion: Release of Information - Authorize [facility] - Payment and Healthcare Operations ROIAUTHOTHER Yes Authoriz ation: Release of Information - Authorize Others/Insurance - Payment and Healthcare Operations HIECONSENT Yes Consent To Release information to the Health Information Exchange (HIE) [email or web address] Yes Authorizat ion: Authorization for [facility] to leave messages, voicemail, send text messages, send emails AUTHRELHCARE Yes Authoriz ation: Release/Retrieval of Information to/from Healthcare Facilities, Pharmacy Benefit Payers and Providers AUTHPRIVPRAC Yes Authoriz ation: Notice of privacy practices AUTHBENEFIT Yes Authoriza tion: Assignment of Benefits and Payment Agreement Internal Other: Verbal Autho rization/Emergency Contact - OBS VERBAL_EMER DONE Verbal au thorization and emergency contact Office Visit: Office Visit f ax MEDS REVIEW Done Documenta tion of current medications (procedure) Plan of Care Type Date Detail Appointment 10:30 AM Nellie holland MD, [address], [address], [place], [address], Pending order Follow up Pending order Patient Instruct ions Pending order Follow up Pending order Neuropsychology Evaluation Pending order Follow up after testing Pending order MRI-Lumbar W/O Pending order Courab Enamorado huyenkate Pending order Obtain outside r ecords Pending order MRI-Brain W/O Pending order TSH Pending order Vitamin B1 (Thia mine) Pending order Vitamin B12 Pending order Neuropsychology Evaluation Procedures Code Procedure Name Date Entry Date ORDERS Patient Instructions CPT-76946 No Charge CPT-62321 Npsy Interview w/Provider - 1st hour 2023 CPT-02560 Npsy Interp/Rpt by Provider - 1st hour 04/09/21 CPT-38158 Npsy Interp/Rpt by Provider - 2 hours 07/17/21 CPT-59731 Npsy Test by Tech (2+ Tests) - 1st 30 min CPT-36259 Npsy Test by Tech (2+ Tests) - 1.5 hours ORDERS Neuropsychology Evaluation 2 ORDERS Follow up after testing 2022 CPT-47515 MRI Lumbar W/O [id number] MRI-Lumbar W/O ORDERS Obtain outside records 11/07 ORDERS Courage Joey Therapy 11/07 CPT-87394 Nerve Conduction 7-8 studies CPT-85842 EMG with NCS (5+ muscles) - 1 limb 12/12 CPT-82521 EMG with NCS (4 or fewer muscles) - 1 johnson b [id number] MRI-Brain W/O ORDERS Vitamin B12 ORDERS Vitamin B1 (Thiamine) 05/05 ORDERS TSH CPT-05946 MRI Brain W/O ORDERS Neuropsychology Evaluation 2 Vital Signs No information available. Immunizations No information available. Advance Directives No information available.
--- OUTSIDE RECORDS SUMMARY | 2024-06-29 13:22 | XMS_ITS | Encounter Summary ---
Author Organization [facility] Address [address] [place] [address] Care Team Providers Care Application Development Team Lead Name Role Phone System, Provider Not In Primary Care Provider Un available Encounter Details Date Type Department Care Team (Latest Contact Info) Description 2024 Travel Social History Tobacco Use Types Packs/Day Years Used Date Smoking Tobacco: Never Assessed Sex and Gender Information Value Date Recorded Sex Assigned at Not on file Legal Sex Male 8:07 PM CDT Gender Identity Not on file Sexual Orientation Not on file documented as of this encounter Plan of Treatment Not on file documented as of this encounter Visit Diagnoses Not on filedocumented in this encounter Additional Health Concerns Infection Onset Date Last Indicated Resolved Time Rule Out COVID-19 2024 2024 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
[2024-06-29 13:29] VITALS: BP 120/57; PULSE 90; RESP 18; TEMP 36.8; O2SAT 97; BMI 32.8
--- NOTE | 2024-06-29 13:43 | ED_ITS ---
HPI - General Adult General Date Seen: 06/29/24 Chief complaint: Urogenital Problems, Male Stated complaint: urinary retention Time Seen by Provider: 06/29/24 13:35 History of Present Illness HPI narrative: Patient is a 79-year-old male sent here from clinic for urinary retention. Clinic note as follows: This was a technically challenging appointment. Patient was in our clinic for an hour and a half over the course of his care. He presented originally for diabetes follow-up but once he arrived to turn that he had been seen in the emergency department on 17 June for COVID and significant weakness. Since that time he has noticed a slight improvement in the weakness and other COVID symptoms have improved. With respect to the diabetes, it is now grossly uncontrolled, he is not following a diabetic diet, the blip at last appointment where his blood sugars had been improved was likely due to a short stent taking Ozempic and since subsequently stopping it it has reverted back to his normal value. In an attempt to gather labs for his diabetes, had patient attempt to urinate. He consumed 6 of the small bottles of water here in clinic over the course of his hour and a half and was unable to do so. I performed a bladder scan which demonstrated a large residual volume and was uncomfortable placing a catheter in the patient and therefore sent him to the emergency department. In addition, while he was here the nurse clocked his pulse at 38 bpm, a subsequent nurse clocked his heart at 120 bpm when he got onto the table for his EKG and the EKG demonstrated a heart rate of 92 bpm. I contacted [facility] given the baseline tremor as uncertain if I could see P waves. He reviewed the 3 EKGs we have and felt that a baseline tremor plus frequent PVC burden was more likely the diagnosis. On arrival, patient is without complaints. He actually does not feel the urge to void. Has some underlying dementia, thinks per his usual routine would have voided this morning when he got up but he is not actually sure. No prior history of urinary retention. No complaints relating to lightheadedness, syncope, chest pain, shortness of breath. His did ask that I listened to his lungs as he continues to have a cough after having COVID 10 days ago. No fevers or chest pain. Related Data Home Medications ?Medication ?Instructions ?Recorded ?Confirmed cholecalciferol (vitamin D3) 25 25 mcg PO QDAY 06/17/23 06/29/24 mcg (1,000 unit) capsule Previous Rx's ?Medication ?Instructions ?Recorded Test Strips #100 ea 06/17/23 aspirin 81 mg tablet,delayed 81 mg PO QDAY #90 tabs 06/17/23 release (Adult Aspirin Regimen) lancets #100 ea 06/17/23 tamsulosin 0.4 mg capsule 0.4 mg PO DAILY #90 caps 06/17/23 metformin 500 mg tablet,extended 1,000 mg (2 x 500 mg) PO BID #360 07/07/23 release 24 hr tabs simvastatin 10 mg tablet 10 mg PO .Bedtime #90 tabs 06/21/24 pen needle, diabetic 31 gauge x #100 ea 06/28/2408/27 insulin degludec 100 unit/mL (3 See Rx Instructions subcut DAILY 06/29/24 mL) subcutaneous pen 90 days #15 mL Allergies Allergy/AdvReac Type Severity Reaction Status Date / Time Penicillins Allergy Unknown Verified 06/29/24 13:34 oxycodone AdvReac Unknown feels Verified 06/29/24 13:34 beside himself - anxiety type reaction Review of Systems Status of ROS: Reports: unobtainable due to medical condition [facility], [facility] Medical History Wound infection ?T14.8XXA - Other injury of unspecified body region, initial encounter (ICD- 10) ?L08.9 - Local infection of the skin and subcutaneous tissue, unspecified (ICD-10) Frequent ventricular premature beats ?I49.3 - Ventricular premature depolarization (ICD-10) Health care directive on file ?Z78.9 - Other specified health status (ICD-10) History of myocardial infarction ?I25.2 - Old myocardial infarction (ICD-10) Amputation of toe of left foot ?S98.132A - Complete traumatic amputation of one left lesser toe, initial encounter (ICD-10) Surgical History History of tonsillectomy and adenoidectomy ?Z90.89 - Acquired absence of other organs (ICD-10) History of hernia repair ?Z98.890 - Other specified postprocedural states (ICD-10) ?Z87.19 - Personal history of other diseases of the digestive system (ICD-10) History of cholecystectomy ?Z90.49 - Acquired absence of other specified parts of digestive tract (ICD- 10) History of appendectomy ?Z90.49 - Acquired absence of other specified parts of digestive tract (ICD- 10) Family History Mother Cancer, Onset Age: 68 Father Heart disease, Onset Age: 63 Social History Narrative: former smoker What is your current living situation?: I presently have a place to live Problems where you live: no known problems In the past 12 months, utilities in danger of being shut off: no In past 12 months, lack of transportation kept you from medical appts, meetings, work, or getting things needed for daily living: no In the past 12 mos, have been you worried that your food would run out before you had money to buy more?: never true In the past 12 mos, the food you bought just didn't last and you didn't have money to buy more?: never true Smoking Status: Former smoker How often do you have a drink containing alcohol: never AUDIT-C Alcohol total score: 0 Non-prescribed substance use: denies use How often does anyone, including family, friends and others, physically hurt you : never How often does anyone, including family, friends and others, insult or talk down to you: never How often does anyone, including family, friends and others, threaten you with harm: never How often does anyone, including family, friends and others, scream or curse at you: never Exam Narrative: Exam Narrative: Vital signs reviewed In general, alert, nontoxic elderly male. Ambulatory without difficulty with his cane. Head: Normocephalic, atraumatic. Eyes: Sclera clear. Pupils equal and reactive. ENT: Mucous membranes moist. Neck: Supple without adenopathy. Heart: Regular rate and rhythm without murmur. Lungs: Clear. No increased work of breathing, crackles or wheezes. Abdomen: Soft, nontender to palpation. Extremities: Well perfused, pulses intact. No significant edema. Neurologic: Alert, conversant. Speech fluent, face symmetric. Moves all extremities equally. Skin: Warm, dry well perfused. Affect: Normal. Const: Vital Signs, click to edit/add: Vital Signs - 24 hr 06/29/24 13:29 Temperature 98.2 F Pulse Rate [Left P ulse Oximeter] 90 Respiratory Rate 18 Blood Pressure [Ri ght Upper Arm] 120/57 L Pulse Oximetry 97 Oxygen Delivery Me thod Room Air Course Course ED Course: Reviewed the clinic note, he had multiple EKGs done which were subsequently reviewed with Cardiology, looking back he had an EKG in 2021 with frequent PVCs in it sounds as if he has frequent PVCs on going. This seems to have been an incidental finding, in the absence of any changes or symptoms related to this, I do not think any specific treatment is warranted particularly given that Cardiology is not concerned. We will go ahead and place a Ramirez, discussed urinary retention with the patient and his , would recommend that we leave the Ramirez in for now, they can be seen in clinic for trial of void later this week or beginning of next week, discussed that urology follow-up would also be recommended as this is usually related to the prostate. Ramirez placed without difficulty. 500 mL of urine out. Urine looks grossly normal, will send UA. Outpatient plan as above. Vital Signs Vital signs: Initial Vital Signs Temperature 98.2 F 06/29/24 13:29 Temperature Source Temporal Artery Scan 06/29/24 13:29 Pulse Rate 90 06/29/24 13:29 Respiratory Rate 18 06/29/24 13:29 Blood Pressure 120/57 L 06/29/24 13:29 Blood Pressure Mean 78 06/29/24 13:29 Blood Pressure Position Sitting 06/29/24 13:29 Pulse Oximetry 97 06/29/24 13:29 Oxygen Delivery Method Room Air 06/29/24 13:29 Vital Signs Temperature 98.2 F 06/29/24 13:29 Pulse Rate 90 06/29/24 13:29 Respiratory Rate 18 06/29/24 13:29 Blood Pressure 120/57 L 06/29/24 13:29 Pulse Oximetry 97 06/29/24 13:29 Oxygen Delivery Method Room Air 06/29/24 13:29 Temperature 98.2 F 06/29/24 13:29 Pulse Rate 90 06/29/24 13:29 Respiratory Rate 18 06/29/24 13:29 Blood Pressure 120/57 L 06/29/24 13:29 Pulse Oximetry 97 06/29/24 13:29 Oxygen Delivery Method Room Air 06/29/24 13:29 Medications Administered Medications: Discontinued Medications Generic Name Dose Route Start Last Admin Trade Name Julito PRN Reason Stop Dose Admin Lidocaine HCl 6 ml 06/29/24 13:47 06/29/24 13:52 Lidocaine Hcl 2 % Jelly (Top) Sterile UR 06/29/24 13:48 6 ml ONCE ONE Administration Medical Decision Making Lab Data Labs: Lab Results 06/29/24 Range/Units 14:13 Urine Color Yellow (Yellow) Urine Appearance Slightly Cloudy A (Clear) Urine pH 6.0 (5.0-8.5) Ur Specific Turner 1.015 (1.000-1.030) Urine Protein Negative (Negative) Urine Glucose (UA) 2+ A (Negative) Urine Ketones Negative (Negative) Urine Blood Negative (Negative) Urine Nitrite Negative (Negative) Urine Bilirubin Negative (Negative) Urine Urobilinogen 0.2 (0.2-1.0) Ur Leukocyte Esterase Negative (Negative) Urine RBC 0-2 (0-2) Urine WBC 0-2 (0-5) Ur Squamous Epith Cells None (None-Few) Amorphous Sediment Few A (None) Urine Bacteria None (None) Discharge Plan Discharge Clinical Impression: Acute urinary retention Patient Disposition: Home, Self-Care Condition: Improved Instructions: Urinary Retention in Men (ED) Additional Instructions: For now, we will leave the catheter in place. You should follow-up in clinic later this week or early next week for trial of removing the catheter. I would recommend that you schedule an appointment with Urology, you can call [phone] radiology to schedule with them. If you have problems with the catheter developed new symptoms such as fevers, chills, vomiting, fainting etcetera you should come back to the ER. Prescriptions: No Action cholecalciferol (vitamin D3) 25 mcg (1,000 unit) capsule 25 mcg PO QDAY aspirin [Adult Aspirin Regimen] 81 mg tablet,delayed release (DR/EC) 81 mg PO QDAY Qty: 90 4RF (DME) lancets Misc See Rx Instructions .Route Qty: 100 3RF Rx Instructions: tid testing tamsulosin 0.4 mg capsule 0.4 mg PO DAILY Qty: 90 3RF (DME) Test Strips Misc See Rx Instructions .Route Qty: 100 3RF Rx Instructions: tid testing insulin degludec 100 unit/mL (3 mL) insulin pen See Rx Instructions subcut DAILY 90 Days Qty: 15 4RF Rx Instructions: subcutaneously daily; 10 units in AM, 35 units in PM metformin 500 mg tablet extended release 24 hr 1,000 mg PO BID Qty: 360 4RF simvastatin 10 mg tablet 10 mg PO .Bedtime Qty: 90 0RF (DME) pen needle, diabetic 31 gauge x 5/16 needle See Rx Instructions .Route Qty: 100 0RF Rx Instructions: daily Follow Up/Referrals: Esther Arboleda MD [Primary Care Provider] - Stand Alone Forms: MyHealth Info Instructions
[2024-06-29] MEDS: lidocaine HCL 2 % JELLY (TOP) STERILE 6 ML UR (13:52)
--- OUTSIDE RECORDS SUMMARY | 2024-06-29 14:17 | XMS_ITS | Clinical Summary ---
Author Organization 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 Gender Identity Not on file Sexual Orientation Not on file Obstetrics History Last Filed Vital Signs Vital Sign Reading Time Taken Comments Blood Pressure 122/64 08/12/2023 8:47 AM CDT Pulse 89 08/12/2023 8:47 AM CDT Temperature 36.7 C (98.1 F) 11/18/2022 1:31 PM CDT Respiratory Rate 14 06/29/2021 11:27 AM CDT Oxygen Saturation 96% 04/29/2023 12:56 PM COMPUTER ENGINEERING TECHNOLOGIST Inhaled Oxygen Concentration - - Weight 95.3 [...] MEDICARE PART A HB ONLY Care Teams Bullet Swaging Machine Operator Relationship Specialty Start Date End Date Esther Arboleda MD [address] [facility] [address] PCP - General 01/16/22 Yumiko Vidal MD Endocrinology 01/25/14 Yumiko Vidal MD Endocrinology 01/25/14
--- OUTSIDE RECORDS SUMMARY | 2024-06-29 14:17 | XMS_ITS | Encounter Summary ---
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
--- OUTSIDE RECORDS SUMMARY | 2024-06-29 14:18 | XMS_ITS | Encounter Summary ---
Author Organization [facility] Address [address] [place] [address] Care Team Providers Care Senior Vice President & General Counsel Name Role Phone System, Provider Not In Primary Care Provider Un available Reason for Visit * Reason Comments Generalized Weakness Encounter Details Date Type Department Care Team (Late st Contact Info) Description 2024 6:00 PM POLICY SERVICE COORDINATOR - 2024 10:18 PM POLICY SERVICE COORDINATOR Emergency [facility] Emergency Dept [address] [place] [address] Moris Petty MD EMERGENCY PHYSICIAN PA [address] [address] COVID-19 virus infection; General weakness Discharge Disposition: [...] Comments Blood Pressure 134/77 2024 8:30 PM POLICY SERVICE COORDINATOR Pulse 93 2024 8:30 PM POLICY SERVICE COORDINATOR Temperature 36.8 C (98.3 F) 2024 6:04 PM POLICY SERVICE COORDINATOR Respiratory Rate 18 2024 9:26 PM POLICY SERVICE COORDINATOR Oxygen Saturation 95% 2024 8:16 PM POLICY SERVICE COORDINATOR Inhaled Oxygen Concentration - - Weight 100.5 kg (221 lb 8 oz) 2024 6:04 PM POLICY SERVICE COORDINATOR Height 182.9 cm (6') 2024 6:04 PM POLICY SERVICE COORDINATOR Body Mass Index 30.04 2024 6:04 PM POLICY SERVICE COORDINATOR documented in this encounter Discharge Instructions * Attachments The following attachments cannot be sent through Care Everywhere. * Weakness: Generalized (Sinhala) * (s) Discharge Instructions for COVID-19 Patients (Sinhala) documented in this encounter Medications at Time [...] walker,Pt had steady gate and no complaints. CY SERVICE COORDINATOR * Moris Petty MD - 2024 6:55 PM CST Emergency Department Note History of Present Illness Chief Complaint Generalized Weakness HPI Neymar Pruett is a 79 year old male with a past medical history significant for hypertension, hyperlipidemia, [place] and type 2 diabetes here with his [...] cord compression Peripheral neuropathy Balance disorder Hypercholesterolemia [place] Medications Zocor Metoprolol succinate Aspirin 81 mg [...] Bilirubin Urine Negative Ketones Urine Negative Specific [place] Urine 1.021 Blood Urine Negative pH Urine [...] Pressure Ventricular Rate 91 Atrial Rate 91 CO Interval 162 QRS Duration 102 QT 362 QTc 445 P [place] 23 R AXIS 52 T [place] -56 Interpretation ECG Sinus rhythm with occasional [...] Documentation None Medical Decision Making / Diagnosis [facility] Diagnoses: None MIPS None MDM Neymar Pruett [...] statements to me. Moris Petty MD 06/17/242227 CY SERVICE COORDINATOR * Elizabeth Peacock RN - 2024 6:03 [...] WDL WDL Cognitive/Neuro/Behavioral WDL Cognitive/Neuro/Behavioral WDL WDL CY SERVICE COORDINATOR * Katia Mcgregor RN - 2024 6:00 PM CST Bed: ED29 Expected date: Expected time: Means of arrival: Comments: [facility] 79M CY SERVICE COORDINATOR documented in this encounter Plan of Treatment Not on file documented as of this encounter Procedures Procedure Name Priority Date/Time Associated Diagnosis Comments ROUTINE UA WITH MICROSCOPIC REFLEX TO CULTURE STAT 2024 8:31 PM POLICY SERVICE COORDINATOR TROPONIN T, HIGH SENSITIVITY STAT 2024 8:20 PM POLICY SERVICE COORDINATOR XR CHEST 2 VIEWS STAT 2024 7:56 PM POLICY SERVICE COORDINATOR INFLUENZA A/B, RSV AND SARS-COV2 PCR STAT 2024 6:35 PM POLICY SERVICE COORDINATOR EXTRA TUBE STAT 2024 6:07 PM POLICY SERVICE COORDINATOR EXTRA PURPLE TOP TUBE STAT 2024 6:07 PM POLICY SERVICE COORDINATOR EXTRA GREEN TOP (LITHIUM HEPARIN) TUBE STAT 2024 6:07 PM POLICY SERVICE COORDINATOR EXTRA RED TOP TUBE STAT 2024 6: 07 PM POLICY SERVICE COORDINATOR EXTRA BLUE TOP TUBE STAT 2024 6 :07 PM POLICY SERVICE COORDINATOR CBC WITH PLATELETS AND DIFFERENTIAL STAT 2024 6:07 PM POLICY SERVICE COORDINATOR TROPONIN T, HIGH SENSITIVITY STAT 2024 6:07 PM POLICY SERVICE COORDINATOR PROCALCITONIN STAT 2024 6:07 PM POLICY SERVICE COORDINATOR CBC WITH PLATELETS & DIFFERENTIAL STAT 2024 6:07 PM POLICY SERVICE COORDINATOR TSH WITH FREE T4 REFLEX STAT 2024 6:07 PM POLICY SERVICE COORDINATOR BASIC METABOLIC PANEL STAT 2024 6:07 PM POLICY SERVICE COORDINATOR EKG 12-LEAD, TRACING ONLY STAT 2024 6:04 PM POLICY SERVICE COORDINATOR documented in this encounter Results * (ABNORMAL) UA with Microscopic reflex to Culture (2024 8:31 PM POLICY SERVICE COORDINATOR) Color Urine Yellow Colorless, Straw, Light Yellow, Yellow 2024 8:52 PM POLICY SERVICE COORDINATOR [facility] Appearance Urine Clear Clear 06/18/19 25 8:52 PM POLICY SERVICE COORDINATOR [facility] Glucose Urine >=1000(A) Negative mg/dL 2024 8:52 PM POLICY SERVICE COORDINATOR [facility] Bilirubin Urine Negative Negative 8:52 PM POLICY SERVICE COORDINATOR [facility] Ketones Urine Negative Negative mg/dL 2024 8:52 PM POLICY SERVICE COORDINATOR [facility] Specific [place] Urine 1.021 1.003 - 1.035 2024 8:52 PM POLICY SERVICE COORDINATOR [facility] Blood Urine Negative Negative 2024 8:52 PM POLICY SERVICE COORDINATOR [facility] pH Urine 7.5(H) 5.0 - 7.0 2024 8:52 PM POLICY SERVICE COORDINATOR [facility] Protein Albumin Urine 30(A) Negative mg/dL 2024 8:52 PM POLICY SERVICE COORDINATOR [facility] Urobilinogen Urine Normal Normal, 2.0 mg/dL 2024 8:52 PM POLICY SERVICE COORDINATOR [facility] Nitrite Urine Negative Negative 2024 8:52 PM POLICY SERVICE COORDINATOR [facility] Leukocyte Esterase Urine Negative Negative 2024 8:52 PM POLICY SERVICE COORDINATOR [facility] Mucus Urine Present(A) None Seen /LPF 2024 8:52 PM POLICY SERVICE COORDINATOR [facility] RBC Urine 2 <=2 /HPF 2024 8:52 PM POLICY SERVICE COORDINATOR [facility] WBC Urine 3 <=5 /HPF 2024 8:52 PM POLICY SERVICE COORDINATOR [facility] Urine MID-STREAM URINE SPECIMEN / Unknown Non-blood Collection / Unknown 2024 8:31 PM POLICY SERVICE COORDINATOR 2024 8:38 PM POLICY SERVICE COORDINATOR Narrative [facility] - 2024 8:52 PM POLICY SERVICE COORDINATOR Urine Culture not indicated us Sim Manzo MD LAB - URINE ORDERABLES F inal Result LABORATORY [facility] Acute Care Lab [address] [facility] Lab (1st floor, no room number) [place] [address] * (ABNORMAL) Troponin T, High Sensitivity (2024 8:20 PM POLICY SERVICE COORDINATOR) Troponin T, High Sensitivity 39(H) <=22 ng/L 2024 8:56 PM POLICY SERVICE COORDINATOR [facility] Comment: Either a High Sensitivity [...] Unknown Venipuncture / Unknown 2024 8:20 PM POLICY SERVICE COORDINATOR 2024 8:34 PM POLICY SERVICE COORDINATOR Moris Petty MD LAB - BLOOD ORDERABLES Final Result LABORATORY [facility] Acute Care Lab [address] Lab (1st floor, no room number) [place] [address] * XR Chest 2 Views (2024 7:56 PM POLICY SERVICE COORDINATOR) Anatomical Region Laterality Modality Chest Digital Radiogra phy 2024 7:56 PM POLICY SERVICE COORDINATOR Impressions 2024 7:59 PM POLICY SERVICE COORDINATOR IMPRESSION: Negative chest. Narrative 2024 7:59 PM POLICY SERVICE COORDINATOR EXAM: XR CHEST 2 VIEWS LOCATION: [facility] DATE: 2024 INDICATION: cough, weakness COMPARISON: None. Procedure Note Samm Wilcox MD - 2024 EXAM: XR CHEST 2 VIEWS LOCATION: [facility] DATE: 2024 INDICATION: cough, weakness COMPARISON: None. IMPRESSION: Negative chest. Result [facility] Moris Petty MD IMG DIAGNOSTIC IMAGING ORDERA BLES Final Result * (ABNORMAL) Influenza A/B, RSV and SARS-CoV2 PCR (COVID-19) Nose (2024 6:35 PM POLICY SERVICE COORDINATOR) Influenza A PCR Negative Negative 2024 7:27 PM POLICY SERVICE COORDINATOR [facility] Influenza B PCR Negative Negative 2024 7:27 PM POLICY SERVICE COORDINATOR [facility] RSV PCR Negative Negative 2024 7:27 PM POLICY SERVICE COORDINATOR [facility] SARS CoV2 PCR Positive(A) Negative 2024 7:27 PM POLICY SERVICE COORDINATOR LABORATORY Comment:POSITIVE: SARS-CoV-2 (COVID-19) RNA detected, presumed positive. Swab NASAL STRUCTURE / Unknown Non-blood Collection / Unknown 2024 6:35 PM POLICY SERVICE COORDINATOR 2024 6:45 PM POLICY SERVICE COORDINATOR [facility] LABORATORY - 2024 7:27 PM POLICY SERVICE COORDINATOR Testing was performed using the Xpert Xpress CoV2/Flu/RSV Assay on the [employer] GeneXpert Instrument. This test should be ordered [...] management. This test was validated by the [facility] [employer]. These laboratories are certified under the Clinical Laboratory Improvement Amendments of 1988 (CLIA-88) as qualified to perfom high complexity laboratory testing. us Sim Manzo MD LAB - MICRO GENERAL ORDE [facility] Final Result [facility] Acute Care Lab [address] [facility] Lab (1st floor, no room number) [place] [address], [facility] * Procalcitonin (2024 6:07 PM POLICY SERVICE COORDINATOR) Procalcitonin 0.11 <0.50 ng/mL 2024 7:58 PM POLICY SERVICE COORDINATOR LABORATORY Comment: Interpretation and Recommendations <0.5 ng/mL: Systemic bacterial infection unlikely. Local bacterial infection is possible. 0.5-1.99 ng/mL: Systemic bacterial infection possible, but various other conditions are known to induce PCT as well. >=2.00 ng/mL: Systemic bacterial infection likely, unless other causes are known. Decision to start antibiotics should not be based on procalcitonin level alone. See Procalcitonin Guidance document for more details. [email or web address] Factors that may affect PCT levels (not [...] Unknown Venipuncture / Unknown 2024 6:07 PM POLICY SERVICE COORDINATOR 2024 6:12 PM POLICY SERVICE COORDINATOR us Moris Petty MD LAB - BLOOD ORDERABLES Final Result [facility] Acute Care Lab [address] [facility] Lab (1st floor, no room number) [place] [address], [facility] * (ABNORMAL) Troponin T, High Sensitivity (2024 6:07 PM POLICY SERVICE COORDINATOR) [facility] Troponin T, High Sensitivity 39(H) <=22 ng/L 2024 7:58 PM POLICY SERVICE COORDINATOR LABORATORY Comment: Either a High Sensitivity Troponin [...] Unknown Venipuncture / Unknown 2024 6:07 PM POLICY SERVICE COORDINATOR 2024 6:12 PM POLICY SERVICE COORDINATOR us Moris Petty MD LAB - BLOOD ORDERABLES Final Result [facility] Acute Care Lab [address] Lab (1st floor, no room number) [place] [address], [facility] * (ABNORMAL) CBC with platelets and differential (2024 6:07 PM POLICY SERVICE COORDINATOR) WBC Count 11.6(H) 4.0 - 11.0 10e3/uL 2024 6:33 PM POLICY SERVICE COORDINATOR [facility] RBC Count 4.70 4.40 - 5.90 10e6/uL 2024 6:33 PM POLICY SERVICE COORDINATOR [facility] Hemoglobin 14.3 13.3 - 17.7 g/dL 2024 6:33 PM POLICY SERVICE COORDINATOR [facility] Hematocrit 42.3 40.0 - 53.0 % 2024 6:33 PM POLICY SERVICE COORDINATOR [facility] MCV 90 78 - 100 fL 2024 6:33 PM POLICY SERVICE COORDINATOR [facility] MCH 30.4 26.5 - 33.0 pg 2024 6:33 PM POLICY SERVICE COORDINATOR [facility] MCHC 33.8 31.5 - 36.5 g/dL 2024 6:33 PM POLICY SERVICE COORDINATOR [facility] RDW 12.7 10.0 - 15.0 % 2024 6:33 PM POLICY SERVICE COORDINATOR [facility] Platelet Count 185 150 - 450 10e3/uL 2024 6:33 PM POLICY SERVICE COORDINATOR [facility] % Neutrophils 81 % 2024 6:33 PM POLICY SERVICE COORDINATOR [facility] % Lymphocytes 6 % 2024 6:33 PM POLICY SERVICE COORDINATOR [facility] % Monocytes 12 % 2024 6:33 PM POLICY SERVICE COORDINATOR [facility] % Eosinophils 0 % 2024 6:33 PM POLICY SERVICE COORDINATOR [facility] % Basophils 0 % 2024 6:33 PM POLICY SERVICE COORDINATOR [facility] % Immature Granulocytes 0 % 2024 6:33 PM POLICY SERVICE COORDINATOR [facility] NRBCs per 100 WBC 0 <1 /100 025 6:33 PM POLICY SERVICE COORDINATOR [facility] Absolute Neutrophils 9.4(H) 1.6 - 8.3 10e3/uL 2024 6:33 PM POLICY SERVICE COORDINATOR [facility] Absolute Lymphocytes 0.7(L) 0.8 - 5.3 10e3/uL 2024 6:33 PM POLICY SERVICE COORDINATOR [facility] Absolute Monocytes 1.4(H) 0.0 - 1.3 10e3/uL 2024 6:33 PM POLICY SERVICE COORDINATOR [facility] Absolute Eosinophils 0.0 0.0 - 0.7 10e3/uL 2024 6:33 PM POLICY SERVICE COORDINATOR [facility] Absolute Basophils 0.1 0.0 - 0.2 10e3/uL 2024 6:33 PM POLICY SERVICE COORDINATOR [facility] Absolute Immature Granulocytes 0.1 <=0.4 10e3/uL 2024 6:33 PM POLICY SERVICE COORDINATOR [facility] Absolute NRBCs 0.0 e3/uL 2024 6:33 PM POLICY SERVICE COORDINATOR [facility] Blood STRUCTURE OF LEFT UPPER LIMB / Unknown Venipuncture / Unknown 2024 6:07 PM POLICY SERVICE COORDINATOR 2024 6:12 PM POLICY SERVICE COORDINATOR us Sim Manzo MD LAB - BLOOD ORDERABLES F inal Result [facility] Lab [address] Lab (1st floor, no room number) [place] [address], [facility] * TSH with free T4 reflex (2024 6:07 PM POLICY SERVICE COORDINATOR) TSH 1.05 0.30 - 4.20 uIU/mL 2024 7:00 PM POLICY SERVICE COORDINATOR [facility] Blood STRUCTURE OF LEFT UPPER LIMB / Unknown Venipuncture / Unknown 2024 6:07 PM POLICY SERVICE COORDINATOR 2024 6:12 PM POLICY SERVICE COORDINATOR Sim Manzo MD LAB - BLOOD ORDERABLES F inal Result [facility] Lab [address] Lab (1st floor, no room number) [place] [address] * (ABNORMAL) Basic metabolic panel (2024 6:07 PM POLICY SERVICE COORDINATOR) Sodium 133(L) 135 - 145 mmol/L 2024 6:55 PM POLICY SERVICE COORDINATOR LABORATORY Potassium 4.4 3.4 - 5.3 mmol/L 2024 6:55 PM POLICY SERVICE COORDINATOR LABORATORY Chloride 97(L) 98 - 107 mmol/L 2024 6:55 PM POLICY SERVICE COORDINATOR LABORATORY Carbon Dioxide (CO2) 27 22 - 29 mmol/L 2024 6:55 PM POLICY SERVICE COORDINATOR LABORATORY Anion Gap 9 7 - 15 mmol/L 2024 6:55 PM POLICY SERVICE COORDINATOR LABORATORY Urea Nitrogen 20.3 8.0 - 23.0 mg/dL 2024 6:55 PM POLICY SERVICE COORDINATOR LABORATORY Creatinine 1.20(H) 0.67 - 1.17 mg/dL 2024 6:55 PM POLICY SERVICE COORDINATOR LABORATORY GFR Estimate 62 >60 mL/min/1.7 3m2 2024 6:55 PM POLICY SERVICE COORDINATOR LABORATORY Comment:eGFR calculated usin 2020 CKD-EPI equation. Calcium 10.5(H) 8.8 - 10.4 mg/dL 2024 6:55 PM POLICY SERVICE COORDINATOR LABORATORY Glucose 221(H) 70 - 99 mg/dL 2024 6:55 PM POLICY SERVICE COORDINATOR LABORATORY Blood STRUCTURE OF LEFT UPPER LIMB / Unknown Venipuncture / Unknown 2024 6:07 PM POLICY SERVICE COORDINATOR 2024 6:12 PM POLICY SERVICE COORDINATOR us Sim Manzo MD LAB - BLOOD ORDERABLES F inal Result [facility] Lab [address] [facility] Lab (1st floor, no room number) [place] [address], [facility] * Extra Purple Top Tube (2024 6:07 PM POLICY SERVICE COORDINATOR) Hold Specimen JIC 2024 7:16 PM POLICY SERVICE COORDINATOR [facility] Blood STRUCTURE OF LEFT UPPER LIMB / Unknown Venipuncture / Unknown 2024 6:07 PM POLICY SERVICE COORDINATOR 2024 6:12 PM POLICY SERVICE COORDINATOR us Moris Petty MD LAB - BLOOD ORDERABLES Final Result [facility] Lab [address] Lab (1st floor, no room number) [place] [address] * Extra Green Top ([place] Heparin) Tube (2024 6:07 PM POLICY SERVICE COORDINATOR) Hold Specimen [facility] 2024 7:16 PM POLICY SERVICE COORDINATOR [facility] Blood STRUCTURE OF LEFT UPPER LIMB / Unknown Venipuncture / Unknown 2024 6:07 PM POLICY SERVICE COORDINATOR 2024 6:12 PM POLICY SERVICE COORDINATOR us Moris Petty MD LAB - BLOOD ORDERABLES Final Result Performing Organization Address [facility]/ZIP Co de Phone Number [facility] Lab [address] Lab (1st floor, no room number) [place] [address], [facility] * Extra Red Top Tube (2024 6:07 PM POLICY SERVICE COORDINATOR) Hold Specimen [facility] 2024 7:16 PM POLICY SERVICE COORDINATOR [facility] Blood STRUCTURE OF LEFT UPPER LIMB / Unknown Venipuncture / Unknown 2024 6:07 PM POLICY SERVICE COORDINATOR 2024 6:12 PM POLICY SERVICE COORDINATOR us Moris Petty MD LAB - BLOOD ORDERABLES Final Result [facility] Lab [address] Lab (1st floor, no room number) [place] [address], [facility] * Extra Blue Top Tube (2024 6:07 PM POLICY SERVICE COORDINATOR) Hold Specimen [facility] 2024 7:16 PM POLICY SERVICE COORDINATOR LABORATORY Blood STRUCTURE OF LEFT UPPER LIMB / Unknown Venipuncture / Unknown 2024 6:07 PM POLICY SERVICE COORDINATOR 2024 6:12 PM POLICY SERVICE COORDINATOR Moris Petty MD LAB - BLOOD ORDERABLES Final Result LABORATORY [facility] Acute Care Lab [address] Lab (1st floor, no room number) [place] [address] * EKG 12-lead, tracing only (2024 6:04 PM POLICY SERVICE COORDINATOR) Systolic Blood Pressure mmHg RADIOLOGY RESULTS Diastolic Blood Pressure mmHg RADIOLOGY RESULTS Ventricular Rate 91 BPM RAD IOLOGY RESULTS Atrial Rate 91 BPM RADIOLOG Y RESULTS CO Interval 162 ms RADIOLOG Y RESULTS QRS Duration 102 ms RADIOLO GY RESULTS QT 362 ms RADIOLOGY RESULTS QTc 445 ms RADIOLOGY RESULTS P [place] 23 degrees RADIOLOGY RESULTS R AXIS 52 degrees RADIOLOGY RESULTS T [place] -56 degrees RADIOLOGY RESULTS Interpretation ECG Sinus rhythm with occasional Premature ventricular complexes Cannot rule out Anterior infarct , age undetermined ST & T wave abnormality, consider inferior ischemia Abnormal ECG No previous ECGs available Confirmed by - EMERGENCY ROOM, PHYSICIAN ([id number]), DEBORAH Laughlin ([id number]) on 06/18/2024 6:48:35 AM Also confirmed by - EMERGENCY ROOM, PHYSICIAN ([id number]), DEBORAH Laughlin ([id number]) on 06/18/2024 6:48:48 AM RADIOLOGY RESULTS 2024 6:04 PM POLICY SERVICE COORDINATOR 06/18/2024 6:48 AM POLICY SERVICE COORDINATOR Victor Manuel Encinas MD ECG ORDERABLES Edited [...] 1 dose $New Bag 2024 7:28 PM POLICY SERVICE COORDINATOR 1,000 mLs 500 mL/hr documented in this encounter Active and Recently Administered Medications Times are shown in POLICY SERVICE COORDINATOR. Scheduled Medication Order 06/15/2024 06/16/2024 2024 sodium [...] Out COVID-19 2024 2024 2024 7:27 PM POLICY SERVICE COORDINATOR COVID-19 2024 2024 06/28/2024 11:3 9 PM CDT documented as of this encounter Care Teams Senior Vice President & General Counsel Relationship Specialty Start Date End Date System, Provider Not In PCP - General Clinic 06/17/24 documented as of this encounter
--- OUTSIDE RECORDS SUMMARY | 2024-06-29 14:18 | XMS_ITS | Referral Summary ---
Author Organization [facility] Address [address] [place] [address] Care Team Providers Care Pipe Stem Repairer Name Role Phone Rosamaria Lane MD Unavailable [phone] [facility], [place] Unavailable Unavailable Allergies Active Allergy Reactions [...] long-term current use of insulin (HCC) by [facility].(Non-Drug ; Combo Route) route once daily. Accu-chek Fastclix. 100 each 3 1 Active pen needle, diabetic (BD INSULIN PEN NEEDLE UF) 31 gauge x 5/16 needleIndications :Type 2 diabetes mellitus with stage 3a chronic kidney disease, with long-term current use of insulin (HCC) by [facility].(Non-Drug ; Combo Route) route once daily. 100 [...] (arteriosclerotic cardiovascular disease) 03/01/2011 Overview (02/26/2012): *06/24/2002- [place]. 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 *08/10/2002- Angiogram complete. 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 Not on file Not on file Last Filed Vital Signs Vital Sign Reading Time Taken Comments Blood Pressure 112/74 10/22/2022 1:14 PM CDT Pulse 62 12/03/2019 10:58 AM CDT Temperature 36.4 C (97.6 F) 02/26/2020 11:18 AM [facility] [employer] Respiratory Rate 14 10/01/2010 8:30 AM CDT [...] HGBA1C OP 6.8(H) 3.8 - 5.6 % [facility] Blood VENOUS BLOOD SPECIMEN / Unknown 01/26/2021 1:32 PM CDT Nargis Contreras MD CHEMISTRY ORDERABLE Final Resu lt [facility] [address] [address], * (ABNORMAL) BASIC METAB PROFILE (01/26/2021 1:32 PM CDT) GLUCOSE CASUAL OP 100.0(H) 70.0 - 99.0 mg/dL [facility] BUN 16.0 7.0 - 18.0 mg/dL [facility] CREATININE 1.33(H) 0.60 - 1.30 mg/dL [facility] CALCIUM 9.3 8.5 - 10.1 mg/dL [facility] SODIUM 139.0 136.0 - 145.0 mmol/L [facility] POTASSIUM 4.2 3.5 - 5.1 mmol/L [facility] CHLORIDE 102.0 98.0 - 107.0 mmol/L [facility] CO2 26.1 21.0 - 32.0 mmol/L [facility] EST GFR (MDRD) 52.7 [facility] Comment: Calculated GFR for the patient [...] Contreras MD CHEMISTRY ORDERABLE Final Resu lt [facility] [address] [address], * HEP C ANTIBODY (01/02/2017 11:09 AM CDT) Hepatitis C Antibody Non-Reacti ve Non-Reacti ve 01/03/2017 11:52 AM CDT [facility] Blood VENOUS BLOOD SPECIMEN / Unknown 01/02/2017 11:09 AM CDT 01/03/2017 10:52 AM CDT Allan Wilder MD IMMUNOLOGY ORDERABLE Final Resul t Performing Organization Address City/[facility] Co de Phone Number [facility] [address] [place] [id number] from Last 3 Months or Most Recently Relevant to Health Maintenance Insurance [facility] MEDICARE ADVANTAGE [address] [place] [id number] MEDICARE PART A & B [employer] MEDICARE ADVANTAGE Advance Directives For more information, please contact: [phone] Documents on File Type Date Recorded Patient Reel Repairer Expl anation HCD - Complete 10/28/2016 6:51 AM Care Teams Pipe Stem Repairer Relationship Specialty Start Date End Date Rosamaria Lane MD Consulting Physician Sleep Medicine 09/14/19 Shweta Pedro 09/26/20
--- OUTSIDE RECORDS SUMMARY | 2024-06-29 14:18 | XMS_ITS | Clinical Summary ---
Author Organization [facility] Address [address] [place] [address] Care Team Providers Care Lean Six Sigma Senior Specialist Name Role Phone Rosamaria Lane MD Unavailable [phone] [facility], [place] Unavailable Unavailable Allergies Active Allergy Reactions [...] long-term current use of insulin (HCC) by [facility].(Non-Drug ; Combo Route) route once daily. Accu-chek Fastclix. 100 each 3 1 Active pen needle, diabetic (BD INSULIN PEN NEEDLE UF) 31 gauge x 5/16 needleIndications :Type 2 diabetes mellitus with stage 3a chronic kidney disease, with long-term current use of insulin (HCC) by [facility].(Non-Drug ; Combo Route) route [...] (arteriosclerotic cardiovascular disease) 03/01/2011 Overview (02/26/2012): *06/24/2002- [place]. 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 *08/10/2002- Angiogram complete. 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 Not on file Not on file Last Filed Vital Signs Vital Sign Reading Time Taken Comments Blood Pressure 112/74 10/22/2022 1:14 PM CDT Pulse 62 12/03/2019 10:58 AM CDT Temperature 36.4 C (97.6 F) 02/26/2020 11:18 AM FITTER WELDER Respiratory Rate 14 10/01/2010 8:30 AM CDT [...] HGBA1C OP 6.8(H) 3.8 - 5.6 % [facility] Blood VENOUS BLOOD SPECIMEN / Unknown 01/26/2021 1:32 PM CDT Nargis Contreras MD CHEMISTRY ORDERABLE Final Resu lt Performing Organization Address [facility]/ZIP Co de Phone Number [address] [address], [place] [phone] * (ABNORMAL) BASIC METAB PROFILE (01/26/2021 1:32 PM CDT) GLUCOSE CASUAL OP 100.0(H) 70.0 - 99.0 mg/dL [facility] BUN 16.0 7.0 - 18.0 mg/dL [facility] CREATININE 1.33(H) 0.60 - 1.30 mg/dL [facility] CALCIUM 9.3 8.5 - 10.1 mg/dL [facility] SODIUM 139.0 136.0 - 145.0 mmol/L [facility] POTASSIUM 4.2 3.5 - 5.1 mmol/L [facility] CHLORIDE 102.0 98.0 - 107.0 mmol/L [facility] CO2 26.1 21.0 - 32.0 mmol/L [facility] EST GFR (MDRD) 52.7 [facility] Comment: Calculated GFR for the patient 18 [...] Contreras MD CHEMISTRY ORDERABLE Final Resu lt [address] [place] [address], * HEP C ANTIBODY (01/02/2017 11:09 AM CDT) Hepatitis C Antibody Non-Reacti ve Non-Reacti ve 01/03/2017 11:52 AM CDT [facility] Blood VENOUS BLOOD SPECIMEN / Unknown 01/02/2017 11:09 AM CDT 01/03/2017 10:52 AM CDT us Allan Wilder MD IMMUNOLOGY ORDERABLE Final Resul t [facility] [address] [place] [address] from Last 3 Months or Most Recently Relevant to Health Maintenance Insurance [facility] MEDICARE ADVANTAGE MEDICARE PART A & B ATTN CLAIMS [place] [address] [employer] MEDICARE ADVANTAGE Advance Directives For more information, please contact: [phone] Documents on File Type Date Recorded Patient Operator Coating Furnace Expl anation HCD - Complete 10/28/2016 6:51 AM Care Teams Lean Six Sigma Senior Specialist Relationship Specialty Start Date End Date Rosamaria Lane MD Consulting Physician Sleep Medicine 09/14/19 [place] Pedro 09/26/20
--- OUTSIDE RECORDS SUMMARY | 2024-06-29 14:18 | XMS_ITS | Clinical Summary ---
Author Organization [facility] Address [address] , [address] [place] [address] Phone Care Team Providers Care Photogrammetric Surveyor Name Role Phone 3CareTeamCoordinator, 3CareTeamCoordinator Unava ilable Unavailable Conditions or Problems Problem Name Problem Code Onset Date Status Entry Date Provider Comment Standard Description Annotate Mild cognitive impairment 975618825 (SNOMED CT) Active 09/08 Summer Jamil PhD Mild neurocognitive disorder Spinal stenosis of lumbar region 24385790 (SNOMED CT) Active 11/07 Nellie Connelly MD Spinal stenosis of lumbar region Tremor, essential 806513795 (SNOMED CT) Active 11/07 Nellie Connelly MD Essential tremor Peripheral neuropathy 244144168 (SNOMED CT) Active 12/12 Beltran Rosenberg MD Peripheral nerve disease Gait imbalance 30021006 (SNOMED CT) Active 05/05 Beltran Rosenberg MD Abnormal gait Memory problems R41.3 (ICD-10-CM) Active 05/05 Beltran Rosenberg MD Other amnesia Medications Medication Instructions Start Date Stop Date Generic Name NDC Provider ARICEPT 5 MG TABS Take 1 tab by mouth once a day x1 month, then 10 mg daily thereafter 8 donepezil [id number] Bianca Ybarra PA-C TRESIBA FLEXTOUCH 100 UNIT/ML SOPN insulin degludec [id number] Bianca Ybarra PA-C TAMSULOSIN HCL 0.4 MG CAPS tamsulosin [id number] Bianca Ybarra PA-C SIMVASTATIN 10 MG TABS simvastatin [id number] Bianca Mehlhaus PA-C ASPIRIN LOW DOSE 81 MG TBEC TAKE 1 TABLET BY MOUTH DAILY aspirin [id number] Bianca MOON-Zeke METFORMIN HCL ER 500 MG [id number] metformin (glucophage xr) [id number] Bianca Ybarra PA-C GABAPENTIN 300 MG CAPS Take 1 po BID 1 gabapentin [id number] Nellie Connelly MD Medications Administered No information available. Allergies, Adverse Reactions, Alerts Allergy Name Reaction Description Start Date Severity Statu s Provider OXYCODONE Critical Active Bianca rizzoaus PA-C PENICILLIN Critical Active Bianca [facility] Results Date Name Value Unit Range [...] Appointment 10:30 AM Nellie holland MD, [address], [address], [place], [address], Pending order Follow up Pending order Patient [...] Name Date Entry Date ORDERS Patient Instructions CPT-77829 No Charge CPT-94360 Npsy Interview w/Provider - 1st hour 2023 CPT-49579 Npsy Interp/Rpt by Provider - 1st hour 04/09/21 CPT-54565 Npsy Interp/Rpt by Provider - 2 hours 07/17/21 CPT-44333 Npsy Test by Tech (2+ Tests) - 1st 30 min CPT-17234 Npsy Test by Tech (2+ Tests) - 1.5 hours ORDERS Neuropsychology Evaluation 2 ORDERS Follow up after testing 2022 CPT-70524 MRI Lumbar W/O [id number] MRI-Lumbar W/O ORDERS Obtain outside records 11/07 ORDERS Courage Joey Therapy 11/07 CPT-18293 Nerve Conduction 7-8 studies CPT-69782 EMG with NCS (5+ muscles) - 1 limb 12/12 CPT-63209 EMG with NCS (4 or fewer muscles) - 1 johnson b [id number] MRI-Brain W/O ORDERS Vitamin B12 ORDERS Vitamin B1 (Thiamine) 05/05 ORDERS TSH CPT-90688 MRI Brain W/O ORDERS Neuropsychology Evaluation 2 Vital Signs No information available. Immunizations No information available. Advance Directives No information available.
--- OUTSIDE RECORDS SUMMARY | 2024-06-29 14:18 | XMS_ITS | Clinical Summary ---
Author Organization [facility] Address [address] [place] [address] Care Team Providers Care Copying Machine Repairer Name Role Phone System, Provider Not In [...] Department Care Team Description 2024 6:00 PM TOBACCO FEEDER CATCHER - 2024 10:18 PM [facility] Emergency [facility] Emergency Dept [address] [place] [address] Moris Petty MD COVID-19 virus infection; General [...] Comments Blood Pressure 134/77 2024 8:30 PM TOBACCO FEEDER CATCHER Pulse 93 2024 8:30 PM TOBACCO FEEDER CATCHER Temperature 36.8 C (98.3 F) 2024 6:04 PM TOBACCO FEEDER CATCHER Respiratory Rate 18 2024 9:26 PM TOBACCO FEEDER CATCHER Oxygen Saturation 95% 2024 8:16 PM TOBACCO FEEDER CATCHER Inhaled Oxygen Concentration - - Weight 100.5 kg (221 lb 8 oz) 2024 6:04 PM TOBACCO FEEDER CATCHER Height 182.9 cm (6') 2024 6:04 PM TOBACCO FEEDER CATCHER Body Mass Index 30.04 2024 6:04 PM TOBACCO FEEDER CATCHER Plan of Treatment Health Maintenance Due Date [...] REFLEX TO CULTURE STAT 2024 8:31 PM TOBACCO FEEDER CATCHER TROPONIN T, HIGH SENSITIVITY STAT 2024 8:20 PM TOBACCO FEEDER CATCHER XR CHEST 2 VIEWS STAT 2024 7:56 PM TOBACCO FEEDER CATCHER INFLUENZA A/B, RSV AND SARS-COV2 PCR STAT 2024 6:35 PM TOBACCO FEEDER CATCHER CBC WITH PLATELETS & DIFFERENTIAL STAT 2024 6:07 PM TOBACCO FEEDER CATCHER PROCALCITONIN STAT 2024 6:07 PM TOBACCO FEEDER CATCHER TROPONIN T, HIGH SENSITIVITY STAT 2024 6:07 PM TOBACCO FEEDER CATCHER CBC WITH PLATELETS AND DIFFERENTIAL STAT 2024 6:07 PM TOBACCO FEEDER CATCHER TSH WITH FREE T4 REFLEX STAT 2024 6:07 PM TOBACCO FEEDER CATCHER BASIC METABOLIC PANEL STAT 2024 6:07 PM TOBACCO FEEDER CATCHER EXTRA PURPLE TOP TUBE STAT 2024 6:07 PM TOBACCO FEEDER CATCHER EXTRA GREEN TOP (LITHIUM HEPARIN) TUBE STAT 2024 6:07 PM TOBACCO FEEDER CATCHER EXTRA RED TOP TUBE STAT 2024 6: 07 PM TOBACCO FEEDER CATCHER EXTRA BLUE TOP TUBE STAT 2024 6 :07 PM TOBACCO FEEDER CATCHER EXTRA TUBE STAT 2024 6:07 PM TOBACCO FEEDER CATCHER EKG 12-LEAD, TRACING ONLY STAT 2024 6:04 PM TOBACCO FEEDER CATCHER from Last 3 Months Results * (ABNORMAL) UA with Microscopic reflex to Culture (2024 8:31 PM TOBACCO FEEDER CATCHER) Color Urine Yellow Colorless, Straw, Light Yellow, Yellow 2024 8:52 PM TOBACCO FEEDER CATCHER [facility] Appearance Urine Clear Clear 06/18/19 8:52 PM TOBACCO FEEDER CATCHER LABORATORY Glucose Urine >=1000(A) Negative mg/dL 2024 8:52 PM TOBACCO FEEDER CATCHER LABORATORY Bilirubin Urine Negative Negative 8:52 PM TOBACCO FEEDER CATCHER LABORATORY Ketones Urine Negative Negative mg/dL 2024 8:52 PM TOBACCO FEEDER CATCHER LABORATORY Specific [place] Urine 1.021 1.003 - 1.035 2024 8:52 PM TOBACCO FEEDER CATCHER LABORATORY Blood Urine Negative Negative 2024 8:52 PM TOBACCO FEEDER CATCHER LABORATORY pH Urine 7.5(H) 5.0 - 7.0 2024 8:52 PM TOBACCO FEEDER CATCHER LABORATORY Protein Albumin Urine 30(A) Negative mg/dL 2024 8:52 PM TOBACCO FEEDER CATCHER LABORATORY Urobilinogen Urine Normal Normal, 2.0 mg/dL 2024 8:52 PM TOBACCO FEEDER CATCHER LABORATORY Nitrite Urine Negative Negative 2024 8:52 PM TOBACCO FEEDER CATCHER LABORATORY Leukocyte Esterase Urine Negative Negative 2024 8:52 PM TOBACCO FEEDER CATCHER LABORATORY Mucus Urine Present(A) None Seen /LPF 2024 8:52 PM TOBACCO FEEDER CATCHER LABORATORY RBC Urine 2 <=2 /HPF 2024 8:52 PM TOBACCO FEEDER CATCHER LABORATORY WBC Urine 3 <=5 /HPF 2024 8:52 PM TOBACCO FEEDER CATCHER LABORATORY Urine MID-STREAM URINE SPECIMEN / Unknown Non-blood Collection / Unknown 2024 8:31 PM TOBACCO FEEDER CATCHER 2024 8:38 PM TOBACCO FEEDER CATCHER Narrative LABORATORY - 2024 8:52 PM TOBACCO FEEDER CATCHER Urine Culture not indicated us Sim Manzo MD LAB - URINE ORDERABLES F inal Result LABORATORY [facility] [address] [facility] Lab (1st floor, no room number) [place] [address], [facility] * (ABNORMAL) Troponin T, High Sensitivity (2024 8:20 PM TOBACCO FEEDER CATCHER) Only the most recent of2 resultswithin the time period is included. Troponin T, High Sensitivity 39(H) <=22 ng/L 2024 8:56 PM TOBACCO FEEDER CATCHER LABORATORY Comment: Either a High Sensitivity Troponin [...] Unknown Venipuncture / Unknown 2024 8:20 PM TOBACCO FEEDER CATCHER 2024 8:34 PM TOBACCO FEEDER CATCHER Moris Petty MD LAB - BLOOD ORDERABLES Final Result [facility] Lab [address] [facility] Lab (1st floor, no room number) [place] [address] * XR Chest 2 Views (2024 7:56 PM TOBACCO FEEDER CATCHER) Anatomical Region Laterality Modality Chest Digital Radiogra phy 2024 7:56 PM TOBACCO FEEDER CATCHER Impressions 2024 7:59 PM TOBACCO FEEDER CATCHER IMPRESSION: Negative chest. Narrative 2024 7:59 PM TOBACCO FEEDER CATCHER EXAM: XR CHEST 2 VIEWS LOCATION: [facility] DATE: 2024 INDICATION: cough, weakness COMPARISON: None. Procedure Note Samm Wilcox MD - 2024 EXAM: XR CHEST 2 VIEWS LOCATION: [facility] DATE: 2024 INDICATION: cough, weakness COMPARISON: None. IMPRESSION: Negative chest. Moris Petty MD IMG DIAGNOSTIC IMAGING ORDERA BLES Final Result * (ABNORMAL) Influenza A/B, RSV and SARS-CoV2 PCR (COVID-19) Nose (2024 6:35 PM TOBACCO FEEDER CATCHER) Influenza A PCR Negative Negative 2024 7:27 PM TOBACCO FEEDER CATCHER [facility] Influenza B PCR Negative Negative 2024 7:27 PM TOBACCO FEEDER CATCHER [facility] RSV PCR Negative Negative 2024 7:27 PM TOBACCO FEEDER CATCHER LABORATORY SARS CoV2 PCR Positive(A) Negative 2024 7:27 PM TOBACCO FEEDER CATCHER LABORATORY Comment:POSITIVE: SARS-CoV-2 (COVID-19) RNA detected, presumed positive. Swab NASAL STRUCTURE / Unknown Non-blood Collection / Unknown 2024 6:35 PM TOBACCO FEEDER CATCHER 2024 6:45 PM TOBACCO FEEDER CATCHER [facility] LABORATORY - 2024 7:27 PM TOBACCO FEEDER CATCHER Testing was performed using the Xpert Xpress CoV2/Flu/RSV Assay on the Itib[employer] TechnologiesXpert Instrument. This test should be ordered for [...] management. This test was validated by the [facility] saambaa. These laboratories are certified under the Clinical Laboratory Improvement Amendments of 1988 (CLIA-88) as qualified to perfom high complexity laboratory testing. us Sim Manzo MD LAB - MICRO GENERAL ORDIraj NOGUERA Final Result [facility] [address] Lab (1st floor, no room number) [place] [address], [facility] * Extra Purple Top Tube (2024 6:07 PM TOBACCO FEEDER CATCHER) Hold Specimen [facility] 2024 7:16 PM TOBACCO FEEDER CATCHER [facility] Blood STRUCTURE OF LEFT UPPER LIMB / Unknown Venipuncture / Unknown 2024 6:07 PM TOBACCO FEEDER CATCHER 2024 6:12 PM TOBACCO FEEDER CATCHER us Moris Petty MD LAB - BLOOD ORDERABLES Final Result [facility] [address] Lab (1st floor, no room number) [place] [address] * Extra Green Top (Morven Heparin) Tube (2024 6:07 PM TOBACCO FEEDER CATCHER) Hold Specimen [facility] 2024 7:16 PM TOBACCO FEEDER CATCHER [facility] Blood STRUCTURE OF LEFT UPPER LIMB / Unknown Venipuncture / Unknown 2024 6:07 PM TOBACCO FEEDER CATCHER 2024 6:12 PM TOBACCO FEEDER CATCHER us Moris Petty MD LAB - BLOOD ORDERABLES Final Result [facility] [address] Lab (1st floor, no room number) [place] [address], [facility] * Extra Red Top Tube (2024 6:07 PM TOBACCO FEEDER CATCHER) Hold Specimen [facility] 2024 7:16 PM TOBACCO FEEDER CATCHER [facility] Blood STRUCTURE OF LEFT UPPER LIMB / Unknown Venipuncture / Unknown 2024 6:07 PM TOBACCO FEEDER CATCHER 2024 6:12 PM TOBACCO FEEDER CATCHER us Moris Petty MD LAB - BLOOD ORDERABLES Final Result [facility] [address] Lab (1st floor, no room number) [place] [address], [facility] * Extra Blue Top Tube (2024 6:07 PM TOBACCO FEEDER CATCHER) Hold Specimen [facility] 2024 7:16 PM TOBACCO FEEDER CATCHER [facility] Blood STRUCTURE OF LEFT UPPER LIMB / Unknown Venipuncture / Unknown 2024 6:07 PM TOBACCO FEEDER CATCHER 2024 6:12 PM TOBACCO FEEDER CATCHER us Moris Petty MD LAB - BLOOD ORDERABLES Final Result [facility] Lab [address] Lab (1st floor, no room number) [place] [address], [facility] * (ABNORMAL) CBC with platelets and differential (2024 6:07 PM TOBACCO FEEDER CATCHER) WBC Count 11.6(H) 4.0 - 11.0 10e3/uL 2024 6:33 PM TOBACCO FEEDER CATCHER [facility] RBC Count 4.70 4.40 - 5.90 10e6/uL 2024 6:33 PM TOBACCO FEEDER CATCHER [facility] Hemoglobin 14.3 13.3 - 17.7 g/dL 2024 6:33 PM TOBACCO FEEDER CATCHER [facility] Hematocrit 42.3 40.0 - 53.0 % 2024 6:33 PM TOBACCO FEEDER CATCHER [facility] MCV 90 78 - 100 fL 2024 6:33 PM TOBACCO FEEDER CATCHER [facility] MCH 30.4 26.5 - 33.0 pg 2024 6:33 PM TOBACCO FEEDER CATCHER [facility] MCHC 33.8 31.5 - 36.5 g/dL 2024 6:33 PM TOBACCO FEEDER CATCHER [facility] RDW 12.7 10.0 - 15.0 % 2024 6:33 PM TOBACCO FEEDER CATCHER [facility] Platelet Count 185 150 - 450 10e3/uL 2024 6:33 PM TOBACCO FEEDER CATCHER [facility] % Neutrophils 81 % 2024 6:33 PM TOBACCO FEEDER CATCHER [facility] % Lymphocytes 6 % 2024 6:33 PM TOBACCO FEEDER CATCHER [facility] % Monocytes 12 % 2024 6:33 PM TOBACCO FEEDER CATCHER [facility] % Eosinophils 0 % 2024 6:33 PM TOBACCO FEEDER CATCHER [facility] % Basophils 0 % 2024 6:33 PM TOBACCO FEEDER CATCHER [facility] % Immature Granulocytes 0 % 2024 6:33 PM TOBACCO FEEDER CATCHER [facility] NRBCs per 100 WBC 0 <1 /100 025 6:33 PM TOBACCO FEEDER CATCHER [facility] Absolute Neutrophils 9.4(H) 1.6 - 8.3 10e3/uL 2024 6:33 PM TOBACCO FEEDER CATCHER [facility] Absolute Lymphocytes 0.7(L) 0.8 - 5.3 10e3/uL 2024 6:33 PM TOBACCO FEEDER CATCHER LABORATORY Absolute Monocytes 1.4(H) 0.0 - 1.3 10e3/uL 2024 6:33 PM TOBACCO FEEDER CATCHER LABORATORY Absolute Eosinophils 0.0 0.0 - 0.7 10e3/uL 2024 6:33 PM TOBACCO FEEDER CATCHER LABORATORY Absolute Basophils 0.1 0.0 - 0.2 10e3/uL 2024 6:33 PM TOBACCO FEEDER CATCHER LABORATORY Absolute Immature Granulocytes 0.1 <=0.4 10e3/uL 2024 6:33 PM TOBACCO FEEDER CATCHER LABORATORY Absolute NRBCs 0.0 10e3/uL 2024 6:33 PM TOBACCO FEEDER CATCHER LABORATORY Blood STRUCTURE OF LEFT UPPER LIMB / Unknown Venipuncture / Unknown 2024 6:07 PM TOBACCO FEEDER CATCHER 2024 6:12 PM TOBACCO FEEDER CATCHER us Sim Manzo MD LAB - BLOOD ORDERABLES F inal Result LABORATORY [facility] [address] [facility] Lab (1st floor, no room number) [place] [address] * Procalcitonin (2024 6:07 PM TOBACCO FEEDER CATCHER) [facility] Procalcitonin 0.11 <0.50 ng/mL 2024 7:58 PM TOBACCO FEEDER CATCHER LABORATORY Comment: Interpretation and Recommendations <0.5 ng/mL: Systemic bacterial infection unlikely. Local bacterial infection is possible. 0.5-1.99 ng/mL: Systemic bacterial infection possible, but various other conditions are known to induce PCT as well. >=2.00 ng/mL: Systemic bacterial infection likely, unless other causes are known. Decision to start antibiotics should not be based on procalcitonin level alone. See Procalcitonin Guidance document for more details. [email or web address] Factors that may affect PCT levels (not [...] Unknown Venipuncture / Unknown 2024 6:07 PM TOBACCO FEEDER CATCHER 2024 6:12 PM TOBACCO FEEDER CATCHER us Moris Petty MD LAB - BLOOD ORDERABLES Final Result Performing Organization Address [facility]/ZIP Co de Phone Number [facility] [address] Lab (1st floor, no room number) [place] [address] * TSH with free T4 reflex (2024 6:07 PM TOBACCO FEEDER CATCHER) TSH 1.05 0.30 - 4.20 uIU/mL 2024 7:00 PM TOBACCO FEEDER CATCHER LABORATORY Blood STRUCTURE OF LEFT UPPER LIMB / Unknown Venipuncture / Unknown 2024 6:07 PM TOBACCO FEEDER CATCHER 2024 6:12 PM TOBACCO FEEDER CATCHER us Sim Manzo MD LAB - BLOOD ORDERABLES F inal Result Performing Organization Address City/[facility]/ZIP Co de Phone Number [facility] Lab [address] Lab (1st floor, no room number) [place] [address] * (ABNORMAL) Basic metabolic panel (2024 6:07 PM TOBACCO FEEDER CATCHER) [facility] Sodium 133(L) 135 - 145 mmol/L 2024 6:55 PM TOBACCO FEEDER CATCHER LABORATORY Potassium 4.4 3.4 - 5.3 mmol/L 2024 6:55 PM TOBACCO FEEDER CATCHER LABORATORY Chloride 97(L) 98 - 107 mmol/L 2024 6:55 PM TOBACCO FEEDER CATCHER LABORATORY Carbon Dioxide (CO2) 27 22 - 29 mmol/L 2024 6:55 PM TOBACCO FEEDER CATCHER LABORATORY Anion Gap 9 7 - 15 mmol/L 2024 6:55 PM TOBACCO FEEDER CATCHER LABORATORY Urea Nitrogen 20.3 8.0 - 23.0 mg/dL 2024 6:55 PM TOBACCO FEEDER CATCHER LABORATORY Creatinine 1.20(H) 0.67 - 1.17 mg/dL 2024 6:55 PM TOBACCO FEEDER CATCHER LABORATORY GFR Estimate 62 >60 mL/min/1.7 3m2 2024 6:55 PM TOBACCO FEEDER CATCHER LABORATORY Comment:eGFR calculated 2020 CKD-EPI equation. Calcium 10.5(H) 8.8 - 10.4 mg/dL 2024 6:55 PM TOBACCO FEEDER CATCHER LABORATORY Glucose 221(H) 70 - 99 mg/dL 2024 6:55 PM TOBACCO FEEDER CATCHER LABORATORY Blood STRUCTURE OF LEFT UPPER LIMB / Unknown Venipuncture / Unknown 2024 6:07 PM TOBACCO FEEDER CATCHER 2024 6:12 PM TOBACCO FEEDER CATCHER us Sim Manzo MD LAB - BLOOD ORDERABLES F inal Result LABORATORY [facility] Lab [address] Lab (1st floor, no room number) [place] [address], [facility] * EKG 12-lead, tracing only (2024 6:04 PM TOBACCO FEEDER CATCHER) [facility] Systolic Blood Pressure mmHg RADIOLOGY RESULTS Diastolic Blood Pressure mmHg RADIOLOGY RESULTS Ventricular Rate 91 BPM RAD IOLOGY RESULTS Atrial Rate 91 BPM RADIOLOG Y RESULTS [place] Interval 162 ms RADIOLOG Y RESULTS QRS Duration 102 ms RADIOLO GY RESULTS QT 362 ms RADIOLOGY RESULTS QTc 445 ms RADIOLOGY RESULTS P [place] 23 degrees RADIOLOGY RESULTS R AXIS 52 degrees RADIOLOGY RESULTS T [place] -56 degrees RADIOLOGY RESULTS Interpretation ECG Sinus rhythm with occasional Premature ventricular complexes Cannot rule out Anterior infarct , age undetermined ST & T wave abnormality, consider inferior ischemia Abnormal ECG No previous ECGs available Confirmed by - EMERGENCY ROOM, PHYSICIAN ([id number]), editorial manager DEBORAH GONZALEZ ([id number]) on 06/18/2024 6:48:35 AM Also confirmed by - EMERGENCY ROOM, PHYSICIAN ([id number]), editorial manager DEBORAH GONZALEZ ([id number]) on 06/18/2024 6:48:48 AM RADIOLOGY RESULTS 2024 6:04 PM TOBACCO FEEDER CATCHER 06/18/2024 6:48 AM TOBACCO FEEDER CATCHER us Victor Manuel Encinas MD ECG ORDERABLES Edited Resul t - Final RADIOLOGY RESULTS from Last 3 Months Insurance [facility] MEDICARE ADVANTAGE [facility] MEDICARE ADVANTAGE Care Teams Copying Machine Repairer Relationship Specialty Start Date End Date System, Provider Not In PCP - General Clinic 06/17/24
[2024-06-29 14:19] LABS: Appearance Urine Slightly Cloudy (Clear); Bilirubin Urine Negative (Negative); Blood Urine Negative (Negative); Color Urine Yellow (Yellow); Glucose Urine 2+ (Negative); Ketones Urine Negative (Negative); Leukocyte Esterase Urine Negative (Negative); Nitrite Urine Negative (Negative); Protein Urine Negative (Negative); Specific Gravity Urine 1.015 (1.000-1.030); Urobilinogen Urine 0.2 (0.2-1.0)
[2024-06-29 14:26] LABS: Amorphous Sediment Urine Few; RBC Urine 0-2 (0-2); WBC Urine 0-2 (0-5)
== END 2024-06-29 15:22 | disposition home or self-care (01) ==
PROVIDERS: Emergency Provider Emergency Medicine; PCP Family Medicine
DX: R33.9 Retention of urine, unspecified (principal)
CPT/HCPCS: 51702; 81001; 99283; 99284

== ENCOUNTER 2024-06-29 19:37 | Emergency (ER) | payer OTHER, SELFPAY ==
--- OUTSIDE RECORDS SUMMARY | 2024-06-29 19:40 | XMS_ITS | Encounter Summary ---
Author Organization [facility] Address [address] [place] [address] Care Team Providers Care Sba Underwriter Name Role Phone System, Provider Not In [...] Out COVID-19 2024 2024 2024 7:27 PM [employer] COVID-19 2024 2024 06/28/2024 11:3 9 PM CDT documented as of this encounter Care Teams Sba Underwriter Relationship Specialty Start Date End Date System, Provider Not In PCP - General Clinic 06/17/24 documented as of this encounter
--- OUTSIDE RECORDS SUMMARY | 2024-06-29 19:40 | XMS_ITS | Clinical Summary ---
Author Organization [facility] Address [address] [place] [address] Care Team Providers Care Communication Center Coordinator Name Role Phone System, Provider Not In [...] Department Care Team Description 2024 6:00 PM [employer] - 2024 10:18 PM [facility] Emergency [facility] Emergency Dept [address] [place] [address] Moris Petty MD COVID-19 virus infection; General [...] Comments Blood Pressure 134/77 2024 8:30 PM [employer] Pulse 93 2024 8:30 PM [employer] Temperature 36.8 C (98.3 F) 2024 6:04 PM [employer] Respiratory Rate 18 2024 9:26 PM [employer] Oxygen Saturation 95% 2024 8:16 PM [employer] Inhaled Oxygen Concentration - - Weight 100.5 kg (221 lb 8 oz) 2024 6:04 PM [employer] Height 182.9 cm (6') 2024 6:04 PM [employer] Body Mass Index 30.04 2024 6:04 PM [employer] Plan of Treatment Health Maintenance Due Date [...] REFLEX TO CULTURE STAT 2024 8:31 PM [employer] TROPONIN T, HIGH SENSITIVITY STAT 2024 8:20 PM [employer] XR CHEST 2 VIEWS STAT 2024 7:56 PM [employer] INFLUENZA A/B, RSV AND SARS-COV2 PCR STAT 2024 6:35 PM [employer] CBC WITH PLATELETS & DIFFERENTIAL STAT 2024 6:07 PM [employer] PROCALCITONIN STAT 2024 6:07 PM [employer] TROPONIN T, HIGH SENSITIVITY STAT 2024 6:07 PM [employer] CBC WITH PLATELETS AND DIFFERENTIAL STAT 2024 6:07 PM [employer] TSH WITH FREE T4 REFLEX STAT 2024 6:07 PM [employer] BASIC METABOLIC PANEL STAT 2024 6:07 PM [employer] EXTRA PURPLE TOP TUBE STAT 2024 6:07 PM [employer] EXTRA GREEN TOP (LITHIUM HEPARIN) TUBE STAT 2024 6:07 PM [employer] EXTRA RED TOP TUBE STAT 2024 6: 07 PM [employer] EXTRA BLUE TOP TUBE STAT 2024 6 :07 PM [employer] EXTRA TUBE STAT 2024 6:07 PM [employer] EKG 12-LEAD, TRACING ONLY STAT 2024 6:04 PM [employer] from Last 3 Months Results * (ABNORMAL) UA with Microscopic reflex to Culture (2024 8:31 PM [employer]) Color Urine Yellow Colorless, Straw, Light Yellow, Yellow 2024 8:52 PM [employer] [facility] Appearance Urine Clear Clear 06/18/19 8:52 PM [employer] LABORATORY Glucose Urine >=1000(A) Negative mg/dL 2024 8:52 PM [employer] LABORATORY Bilirubin Urine Negative Negative 8:52 PM [employer] LABORATORY Ketones Urine Negative Negative mg/dL 2024 8:52 PM [employer] LABORATORY Specific Perkins Urine 1.021 1.003 - 1.035 2024 8:52 PM [employer] LABORATORY Blood Urine Negative Negative 2024 8:52 PM [employer] LABORATORY pH Urine 7.5(H) 5.0 - 7.0 2024 8:52 PM [employer] LABORATORY Protein Albumin Urine 30(A) Negative mg/dL 2024 8:52 PM [employer] LABORATORY Urobilinogen Urine Normal Normal, 2.0 mg/dL 2024 8:52 PM [employer] LABORATORY Nitrite Urine Negative Negative 2024 8:52 PM [employer] LABORATORY Leukocyte Esterase Urine Negative Negative 2024 8:52 PM [employer] LABORATORY Mucus Urine Present(A) None Seen /LPF 2024 8:52 PM [employer] LABORATORY RBC Urine 2 <=2 /HPF 2024 8:52 PM [employer] LABORATORY WBC Urine 3 <=5 /HPF 2024 8:52 PM [employer] LABORATORY Urine MID-STREAM URINE SPECIMEN / Unknown Non-blood Collection / Unknown 2024 8:31 PM [employer] 2024 8:38 PM [employer] Narrative LABORATORY - 2024 8:52 PM [employer] Urine Culture not indicated us Sim Manzo MD LAB - URINE ORDERABLES F inal Result LABORATORY [facility] [address] [facility] Lab (1st floor, no room number) [place] [address], [facility] * (ABNORMAL) Troponin T, High Sensitivity (2024 8:20 PM [employer]) Only the most recent of2 resultswithin the time period is included. Troponin T, High Sensitivity 39(H) <=22 ng/L 2024 8:56 PM [employer] LABORATORY Comment: Either a High Sensitivity Troponin [...] Unknown Venipuncture / Unknown 2024 8:20 PM [employer] 2024 8:34 PM [employer] Moris Petty MD LAB - BLOOD ORDERABLES Final Result [facility] [address] [facility] Lab (1st floor, no room number) [place] [address] * XR Chest 2 Views (2024 7:56 PM [employer]) Anatomical Region Laterality Modality Chest Digital Radiogra phy 2024 7:56 PM [employer] Impressions 2024 7:59 PM [employer] IMPRESSION: Negative chest. Narrative 2024 7:59 PM [employer] EXAM: XR CHEST 2 VIEWS LOCATION: [facility] DATE: 2024 INDICATION: cough, weakness COMPARISON: None. Procedure Note Samm Wilcox MD - 2024 EXAM: XR CHEST 2 VIEWS LOCATION: [facility] DATE: 2024 INDICATION: cough, weakness COMPARISON: None. IMPRESSION: Negative chest. Moris Petty MD IMG DIAGNOSTIC IMAGING ORDERA BLES Final Result * (ABNORMAL) Influenza A/B, RSV and SARS-CoV2 PCR (COVID-19) Nose (2024 6:35 PM [employer]) Influenza A PCR Negative Negative 2024 7:27 PM [employer] [facility] Influenza B PCR Negative Negative 2024 7:27 PM [employer] [facility] RSV PCR Negative Negative 2024 7:27 PM [employer] LABORATORY SARS CoV2 PCR Positive(A) Negative 2024 7:27 PM [employer] LABORATORY Comment:POSITIVE: SARS-CoV-2 (COVID-19) RNA detected, presumed positive. Swab NASAL STRUCTURE / Unknown Non-blood Collection / Unknown 2024 6:35 PM [employer] 2024 6:45 PM [employer]INEER [facility] LABORATORY - 2024 7:27 PM [employer] Testing was performed using the Xpert Xpress CoV2/Flu/RSV Assay on the Tab [employer]Xpert Instrument. This test should be ordered for [...] management. This test was validated by the [facility]. These laboratories are certified under the Clinical Laboratory Improvement Amendments of 1988 (CLIA-88) as qualified to perfom high complexity laboratory testing. us Sim Manzo MD LAB - MICRO GENERAL ORDIraj NOGUERA Final Result [facility] [address] Lab (1st floor, no room number) [place] [address], [facility] * Extra Purple Top Tube (2024 6:07 PM [employer]) Hold Specimen [facility] 2024 7:16 PM [employer] [facility] Blood STRUCTURE OF LEFT UPPER LIMB / Unknown Venipuncture / Unknown 2024 6:07 PM [employer] 2024 6:12 PM [employer] us Moris Petty MD LAB - BLOOD ORDERABLES Final Result [facility] [address] Lab (1st floor, no room number) [place] [address] * Extra Green Top ([place] Heparin) Tube (2024 6:07 PM [employer]) Hold Specimen [facility] 2024 7:16 PM [employer] [facility] Blood STRUCTURE OF LEFT UPPER LIMB / Unknown Venipuncture / Unknown 2024 6:07 PM [employer] 2024 6:12 PM [employer] us Moris Petty MD LAB - BLOOD ORDERABLES Final Result [facility] [address] Lab (1st floor, no room number) [place] [address], [facility] * Extra Red Top Tube (2024 6:07 PM [employer]) Hold Specimen [facility] 2024 7:16 PM [employer] [facility] Blood STRUCTURE OF LEFT UPPER LIMB / Unknown Venipuncture / Unknown 2024 6:07 PM [employer] 2024 6:12 PM [employer] us Moris Petty MD LAB - BLOOD ORDERABLES Final Result [facility] [address] Lab (1st floor, no room number) [place] [address], [facility] * Extra Blue Top Tube (2024 6:07 PM [employer]) Hold Specimen [facility] 2024 7:16 PM [employer] [facility] Blood STRUCTURE OF LEFT UPPER LIMB / Unknown Venipuncture / Unknown 2024 6:07 PM [employer] 2024 6:12 PM [employer] us Moris Petty MD LAB - BLOOD ORDERABLES Final Result [facility] LABORATORY [facility] [address] Lab (1st floor, no room number) [place] [address], [facility] * (ABNORMAL) CBC with platelets and differential (2024 6:07 PM [employer]) WBC Count 11.6(H) 4.0 - 11.0 10e3/uL 2024 6:33 PM [employer] [facility] RBC Count 4.70 4.40 - 5.90 10e6/uL 2024 6:33 PM [employer] [facility] Hemoglobin 14.3 13.3 - 17.7 g/dL 2024 6:33 PM [employer] [facility] Hematocrit 42.3 40.0 - 53.0 % 2024 6:33 PM [employer] [facility] MCV 90 78 - 100 fL 2024 6:33 PM [employer] [facility] MCH 30.4 26.5 - 33.0 pg 2024 6:33 PM [employer] [facility] MCHC 33.8 31.5 - 36.5 g/dL 2024 6:33 PM [employer] [facility] RDW 12.7 10.0 - 15.0 % 2024 6:33 PM [employer] [facility] Platelet Count 185 150 - 450 10e3/uL 2024 6:33 PM [employer] [facility] % Neutrophils 81 % 2024 6:33 PM [employer] [facility] % Lymphocytes 6 % 2024 6:33 PM [employer] [facility] % Monocytes 12 % 2024 6:33 PM [employer] [facility] % Eosinophils 0 % 2024 6:33 PM [employer] [facility] % Basophils 0 % 2024 6:33 PM [employer] [facility] % Immature Granulocytes 0 % 2024 6:33 PM [employer] [facility] NRBCs per 100 WBC 0 <1 /100 025 6:33 PM [employer] [facility] Absolute Neutrophils 9.4(H) 1.6 - 8.3 10e3/uL 2024 6:33 PM [employer] [facility] Absolute Lymphocytes 0.7(L) 0.8 - 5.3 10e3/uL 2024 6:33 PM [employer] LABORATORY Absolute Monocytes 1.4(H) 0.0 - 1.3 10e3/uL 2024 6:33 PM [employer] LABORATORY Absolute Eosinophils 0.0 0.0 - 0.7 10e3/uL 2024 6:33 PM [employer] LABORATORY Absolute Basophils 0.1 0.0 - 0.2 10e3/uL 2024 6:33 PM [employer] LABORATORY Absolute Immature Granulocytes 0.1 <=0.4 10e3/uL 2024 6:33 PM [employer] LABORATORY Absolute NRBCs 0.0 10e3/uL 2024 6:33 PM [employer] LABORATORY Blood STRUCTURE OF LEFT UPPER LIMB / Unknown Venipuncture / Unknown 2024 6:07 PM [employer] 2024 6:12 PM [employer] us Sim Manzo MD LAB - BLOOD ORDERABLES F inal Result LABORATORY [facility] [address] Lab (1st floor, no room number) [place] [address] * Procalcitonin (2024 6:07 PM [employer]) [facility] Procalcitonin 0.11 <0.50 ng/mL 2024 7:58 PM [employer] LABORATORY Comment: Interpretation and Recommendations <0.5 ng/mL: Systemic bacterial infection unlikely. Local bacterial infection is possible. 0.5-1.99 ng/mL: Systemic bacterial infection possible, but various other conditions are known to induce PCT as well. >=2.00 ng/mL: Systemic bacterial infection likely, unless other causes are known. Decision to start antibiotics should not be based on procalcitonin level alone. See Procalcitonin Guidance document for more details. [email or web address]/[email or web address] Factors that may affect PCT levels (not [...] Unknown Venipuncture / Unknown 2024 6:07 PM [employer] 2024 6:12 PM [employer] us Moris Petty MD LAB - BLOOD ORDERABLES Final Result Performing Organization Address [facility]/ZIP Co de Phone Number [facility] [address] Lab (1st floor, no room number) [place] [address] * TSH with free T4 reflex (2024 6:07 PM [employer]) TSH 1.05 0.30 - 4.20 uIU/mL 2024 7:00 PM [employer] LABORATORY Blood STRUCTURE OF LEFT UPPER LIMB / Unknown Venipuncture / Unknown 2024 6:07 PM [employer] 2024 6:12 PM [employer] us Sim Manzo MD LAB - BLOOD ORDERABLES F inal Result Performing Organization Address City/[facility]/ZIP Co de Phone Number [facility] [address] Lab (1st floor, no room number) [place] [address] * (ABNORMAL) Basic metabolic panel (2024 6:07 PM [employer]) [facility] Sodium 133(L) 135 - 145 mmol/L 2024 6:55 PM [employer] LABORATORY Potassium 4.4 3.4 - 5.3 mmol/L 2024 6:55 PM [employer] LABORATORY Chloride 97(L) 98 - 107 mmol/L 2024 6:55 PM [employer] LABORATORY Carbon Dioxide (CO2) 27 22 - 29 mmol/L 2024 6:55 PM [employer] LABORATORY Anion Gap 9 7 - 15 mmol/L 2024 6:55 PM [employer] LABORATORY Urea Nitrogen 20.3 8.0 - 23.0 mg/dL 2024 6:55 PM [employer] LABORATORY Creatinine 1.20(H) 0.67 - 1.17 mg/dL 2024 6:55 PM [employer] LABORATORY GFR Estimate 62 >60 mL/min/1.7 3m2 2024 6:55 PM [employer] LABORATORY Comment:eGFR calculated 2020 CKD-EPI equation. Calcium 10.5(H) 8.8 - 10.4 mg/dL 2024 6:55 PM [employer] LABORATORY Glucose 221(H) 70 - 99 mg/dL 2024 6:55 PM [employer] LABORATORY Blood STRUCTURE OF LEFT UPPER LIMB / Unknown Venipuncture / Unknown 2024 6:07 PM [employer] 2024 6:12 PM [employer] us Sim Manzo MD LAB - BLOOD ORDERABLES F inal Result LABORATORY [facility] [address] Lab (1st floor, no room number) [place] [address], [facility] * EKG 12-lead, tracing only (2024 6:04 PM [employer]) [facility] Systolic Blood Pressure mmHg RADIOLOGY RESULTS Diastolic Blood Pressure mmHg RADIOLOGY RESULTS Ventricular Rate 91 BPM RAD IOLOGY RESULTS Atrial Rate 91 BPM RADIOLOG Y RESULTS CO Interval 162 ms RADIOLOG Y RESULTS QRS Duration 102 ms RADIOLO GY RESULTS QT 362 ms RADIOLOGY RESULTS QTc 445 ms RADIOLOGY RESULTS P [place] 23 degrees RADIOLOGY RESULTS R AXIS 52 degrees RADIOLOGY RESULTS T [place] -56 degrees RADIOLOGY RESULTS Interpretation ECG Sinus rhythm with occasional Premature ventricular complexes Cannot rule out Anterior infarct , age undetermined ST & T wave abnormality, consider inferior ischemia Abnormal ECG No previous ECGs available Confirmed by - EMERGENCY ROOM, PHYSICIAN ([id number]), editorial director DEBORAH GONZALEZ ([id number]) on 06/18/2024 6:48:35 AM Also confirmed by - EMERGENCY ROOM, PHYSICIAN ([id number]), editorial director DEBORAH GONZALEZ ([id number]) on 06/18/2024 6:48:48 AM RADIOLOGY RESULTS 2024 6:04 PM [employer] 06/18/2024 6:48 AM [employer] us Victor Manuel Encinas MD ECG ORDERABLES Edited Resul t - Final RADIOLOGY RESULTS from Last 3 Months Insurance [facility] MEDICARE ADVANTAGE [facility] MEDICARE ADVANTAGE Care Teams Communication Center Coordinator Relationship Specialty Start Date End Date System, Provider Not In PCP - General Clinic 06/17/24
--- OUTSIDE RECORDS SUMMARY | 2024-06-29 19:40 | XMS_ITS | Clinical Summary ---
Author Organization [employer] [facility] Address [address] [place] [address] Care Team Providers Care Director Of Community Services Name Role Phone Yumiko Vidal MD Unavailable Unavailable Yumiko Vidal MD Unavailable Unavailable Esther Arboleda MD Primary Care Provider [phone] Allergies Active Allergy Reactions Criticality Noted Date [...] Shortness of breath 12/08/2006 [facility] S/P INFERIOR NM + RCA STENT 06/14 [facility] [...] on file Legal Sex Male 6:29 AM [employer]HY [employer] Gender Identity Not on file Sexual Orientation Not on file Obstetrics History Last Filed Vital Signs Vital Sign Reading Time Taken Comments Blood Pressure 122/64 08/12/2023 8:47 AM CDT Pulse 89 08/12/2023 8:47 AM CDT Temperature 36.7 C (98.1 F) 11/18/2022 1:31 PM CDT Respiratory Rate 14 06/29/2021 11:27 AM CDT Oxygen Saturation 96% 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
--- OUTSIDE RECORDS SUMMARY | 2024-06-29 19:40 | XMS_ITS | Encounter Summary ---
Author Organization [facility] Address [address] [place] [address] Care Team Providers Care Radiographer Angiogram Name Role Phone System, Provider Not In Primary Care Provider Un available Reason for Visit * Reason Comments Generalized Weakness Encounter Details Date Type Department Care Team (Late st Contact Info) Description 2024 6:00 PM CUSTOMS DIRECTOR - 2024 10:18 PM CUSTOMS DIRECTOR Emergency [facility] Emergency Dept [address] [place] [address] Moris Petty MD EMERGENCY PHYSICIAN [facility] [address] [id number] COVID-19 virus infection; General weakness Discharge Disposition: [...] Comments Blood Pressure 134/77 2024 8:30 PM CUSTOMS DIRECTOR Pulse 93 2024 8:30 PM CUSTOMS DIRECTOR Temperature 36.8 C (98.3 F) 2024 6:04 PM CUSTOMS DIRECTOR Respiratory Rate 18 2024 9:26 PM CUSTOMS DIRECTOR Oxygen Saturation 95% 2024 8:16 PM CUSTOMS DIRECTOR Inhaled Oxygen Concentration - - Weight 100.5 kg (221 lb 8 oz) 2024 6:04 PM CUSTOMS DIRECTOR Height 182.9 cm (6') 2024 6:04 PM CUSTOMS DIRECTOR Body Mass Index 30.04 2024 6:04 PM CUSTOMS DIRECTOR documented in this encounter Discharge Instructions * Attachments The following attachments cannot be sent through Care Everywhere. * Weakness: Generalized (Slovak) * (s) Discharge Instructions for COVID-19 Patients (Slovak) documented in this encounter Medications at Time [...] walker,Pt had steady gate and no complaints. OMS DIRECTOR * Moris Petty MD - 2024 6:55 PM CST Emergency Department Note History of Present Illness Chief Complaint Generalized Weakness HPI Neymar Pruett is a 79 year old male with a past medical history significant for hypertension, hyperlipidemia, HI and type 2 diabetes here with his [...] cord compression Peripheral neuropathy Balance disorder Hypercholesterolemia HI Medications Zocor Metoprolol succinate Aspirin 81 mg [...] Bilirubin Urine Negative Ketones Urine Negative Specific Graham Urine 1.021 Blood Urine Negative pH Urine [...] Pressure Ventricular Rate 91 Atrial Rate 91 DC Interval 162 QRS Duration 102 QT 362 QTc 445 P [place] 23 R AXIS 52 T [place] -56 Interpretation ECG Sinus rhythm with occasional [...] Documentation None Medical Decision Making / Diagnosis [facility] Diagnoses: None MIPS None MDM Neymar Pruett [...] statements to me. Moris Petty MD 06/17/242227 OMS DIRECTOR * Elizabeth Peacock RN - 2024 6:03 [...] WDL WDL Cognitive/Neuro/Behavioral WDL Cognitive/Neuro/Behavioral WDL WDL OMS DIRECTOR * Katia Mcgregor RN - 2024 6:00 PM CST Bed: ED29 Expected date: Expected time: Means of arrival: Comments: [facility] 79M OMS DIRECTOR documented in this encounter Plan of Treatment Not on file documented as of this encounter Procedures Procedure Name Priority Date/Time Associated Diagnosis Comments ROUTINE UA WITH MICROSCOPIC REFLEX TO CULTURE STAT 2024 8:31 PM CUSTOMS DIRECTOR TROPONIN T, HIGH SENSITIVITY STAT 2024 8:20 PM CUSTOMS DIRECTOR XR CHEST 2 VIEWS STAT 2024 7:56 PM CUSTOMS DIRECTOR INFLUENZA A/B, RSV AND SARS-COV2 PCR STAT 2024 6:35 PM CUSTOMS DIRECTOR EXTRA TUBE STAT 2024 6:07 PM CUSTOMS DIRECTOR EXTRA PURPLE TOP TUBE STAT 2024 6:07 PM CUSTOMS DIRECTOR EXTRA GREEN TOP (LITHIUM HEPARIN) TUBE STAT 2024 6:07 PM CUSTOMS DIRECTOR EXTRA RED TOP TUBE STAT 2024 6: 07 PM CUSTOMS DIRECTOR EXTRA BLUE TOP TUBE STAT 2024 6 :07 PM CUSTOMS DIRECTOR CBC WITH PLATELETS AND DIFFERENTIAL STAT 2024 6:07 PM CUSTOMS DIRECTOR TROPONIN T, HIGH SENSITIVITY STAT 2024 6:07 PM CUSTOMS DIRECTOR PROCALCITONIN STAT 2024 6:07 PM CUSTOMS DIRECTOR CBC WITH PLATELETS & DIFFERENTIAL STAT 2024 6:07 PM CUSTOMS DIRECTOR TSH WITH FREE T4 REFLEX STAT 2024 6:07 PM CUSTOMS DIRECTOR BASIC METABOLIC PANEL STAT 2024 6:07 PM CUSTOMS DIRECTOR EKG 12-LEAD, TRACING ONLY STAT 2024 6:04 PM CUSTOMS DIRECTOR documented in this encounter Results * (ABNORMAL) UA with Microscopic reflex to Culture (2024 8:31 PM CUSTOMS DIRECTOR) Color Urine Yellow Colorless, Straw, Light Yellow, Yellow 2024 8:52 PM CUSTOMS DIRECTOR [facility] Appearance Urine Clear Clear 06/18/19 25 8:52 PM CUSTOMS DIRECTOR [facility] Glucose Urine >=1000(A) Negative mg/dL 2024 8:52 PM CUSTOMS DIRECTOR [facility] Bilirubin Urine Negative Negative 8:52 PM CUSTOMS DIRECTOR [facility] Ketones Urine Negative Negative mg/dL 2024 8:52 PM CUSTOMS DIRECTOR [facility] Specific Graham Urine 1.021 1.003 - 1.035 2024 8:52 PM CUSTOMS DIRECTOR [facility] Blood Urine Negative Negative 2024 8:52 PM CUSTOMS DIRECTOR [facility] pH Urine 7.5(H) 5.0 - 7.0 2024 8:52 PM CUSTOMS DIRECTOR [facility] Protein Albumin Urine 30(A) Negative mg/dL 2024 8:52 PM CUSTOMS DIRECTOR [facility] Urobilinogen Urine Normal Normal, 2.0 mg/dL 2024 8:52 PM CUSTOMS DIRECTOR [facility] Nitrite Urine Negative Negative 2024 8:52 PM CUSTOMS DIRECTOR [facility] Leukocyte Esterase Urine Negative Negative 2024 8:52 PM CUSTOMS DIRECTOR [facility] Mucus Urine Present(A) None Seen /LPF 2024 8:52 PM CUSTOMS DIRECTOR [facility] RBC Urine 2 <=2 /HPF 2024 8:52 PM CUSTOMS DIRECTOR [facility] WBC Urine 3 <=5 /HPF 2024 8:52 PM CUSTOMS DIRECTOR [facility] Urine MID-STREAM URINE SPECIMEN / Unknown Non-blood Collection / Unknown 2024 8:31 PM CUSTOMS DIRECTOR 2024 8:38 PM CUSTOMS DIRECTOR Narrative [facility] - 2024 8:52 PM CUSTOMS DIRECTOR Urine Culture not indicated us Sim Manzo MD LAB - URINE ORDERABLES F inal Result LABORATORY [facility] [address] [facility] Lab (1st floor, no room number) [place] [address] * (ABNORMAL) Troponin T, High Sensitivity (2024 8:20 PM CUSTOMS DIRECTOR) Troponin T, High Sensitivity 39(H) <=22 ng/L 2024 8:56 PM CUSTOMS DIRECTOR [facility] Comment: Either a High Sensitivity [...] Unknown Venipuncture / Unknown 2024 8:20 PM CUSTOMS DIRECTOR 2024 8:34 PM CUSTOMS DIRECTOR Moris Petty MD LAB - BLOOD ORDERABLES Final Result LABORATORY [facility] [address] Lab (1st floor, no room number) [place] [address] * XR Chest 2 Views (2024 7:56 PM CUSTOMS DIRECTOR) Anatomical Region Laterality Modality Chest Digital Radiogra phy 2024 7:56 PM CUSTOMS DIRECTOR Impressions 2024 7:59 PM CUSTOMS DIRECTOR IMPRESSION: Negative chest. Narrative 2024 7:59 PM CUSTOMS DIRECTOR EXAM: XR CHEST 2 VIEWS LOCATION: [facility] DATE: 2024 INDICATION: cough, weakness COMPARISON: None. Procedure Note Samm Wilcox MD - 2024 EXAM: XR CHEST 2 VIEWS LOCATION: [facility] DATE: 2024 INDICATION: cough, weakness COMPARISON: None. IMPRESSION: Negative chest. Result [facility] Moris Petty MD IMG DIAGNOSTIC IMAGING ORDERA BLES Final Result * (ABNORMAL) Influenza A/B, RSV and SARS-CoV2 PCR (COVID-19) Nose (2024 6:35 PM CUSTOMS DIRECTOR) Influenza A PCR Negative Negative 2024 7:27 PM CUSTOMS DIRECTOR [facility] Influenza B PCR Negative Negative 2024 7:27 PM CUSTOMS DIRECTOR [facility] RSV PCR Negative Negative 2024 7:27 PM CUSTOMS DIRECTOR [facility] SARS CoV2 PCR Positive(A) Negative 2024 7:27 PM CUSTOMS DIRECTOR LABORATORY Comment:POSITIVE: SARS-CoV-2 (COVID-19) RNA detected, presumed positive. Swab NASAL STRUCTURE / Unknown Non-blood Collection / Unknown 2024 6:35 PM CUSTOMS DIRECTOR 2024 6:45 PM CUSTOMS DIRECTOR [facility] LABORATORY - 2024 7:27 PM CUSTOMS DIRECTOR Testing was performed using the Xpert Xpress CoV2/Flu/RSV Assay on the [employer] GeneXpert Instrument. This test should be ordered [...] management. This test was validated by the [facility]. These laboratories are certified under the Clinical Laboratory Improvement Amendments of 1988 (CLIA-88) as qualified to perfom high complexity laboratory testing. us Sim Manzo MD LAB - MICRO GENERAL [facility] Final Result [facility] [address] [facility] Lab (1st floor, no room number) [place] [address], [facility] * Procalcitonin (2024 6:07 PM CUSTOMS DIRECTOR) Procalcitonin 0.11 <0.50 ng/mL 2024 7:58 PM CUSTOMS DIRECTOR LABORATORY Comment: Interpretation and Recommendations <0.5 ng/mL: Systemic bacterial infection unlikely. Local bacterial infection is possible. 0.5-1.99 ng/mL: Systemic bacterial infection possible, but various other conditions are known to induce PCT as well. >=2.00 ng/mL: Systemic bacterial infection likely, unless other causes are known. Decision to start antibiotics should not be based on procalcitonin level alone. See Procalcitonin Guidance document for more details. https://Davia/files/[facility]view/[email or web address]-on-ant ibiot [email or web address] Factors that may affect PCT levels (not [...] Unknown Venipuncture / Unknown 2024 6:07 PM CUSTOMS DIRECTOR 2024 6:12 PM CUSTOMS DIRECTOR us Moris Petty MD LAB - BLOOD ORDERABLES Final Result [facility] [address] [facility] Lab (1st floor, no room number) [place] [address], [facility] * (ABNORMAL) Troponin T, High Sensitivity (2024 6:07 PM CUSTOMS DIRECTOR) [facility] Troponin T, High Sensitivity 39(H) <=22 ng/L 2024 7:58 PM CUSTOMS DIRECTOR LABORATORY Comment: Either a High Sensitivity Troponin [...] Unknown Venipuncture / Unknown 2024 6:07 PM CUSTOMS DIRECTOR 2024 6:12 PM CUSTOMS DIRECTOR us Moris ePtty MD LAB - BLOOD ORDERABLES Final Result [facility] [address] Lab (1st floor, no room number) [place] [address], [facility] * (ABNORMAL) CBC with platelets and differential (2024 6:07 PM CUSTOMS DIRECTOR) WBC Count 11.6(H) 4.0 - 11.0 10e3/uL 2024 6:33 PM CUSTOMS DIRECTOR [facility] RBC Count 4.70 4.40 - 5.90 10e6/uL 2024 6:33 PM CUSTOMS DIRECTOR [facility] Hemoglobin 14.3 13.3 - 17.7 g/dL 2024 6:33 PM CUSTOMS DIRECTOR [facility] Hematocrit 42.3 40.0 - 53.0 % 2024 6:33 PM CUSTOMS DIRECTOR [facility] MCV 90 78 - 100 fL 2024 6:33 PM CUSTOMS DIRECTOR [facility] MCH 30.4 26.5 - 33.0 pg 2024 6:33 PM CUSTOMS DIRECTOR [facility] MCHC 33.8 31.5 - 36.5 g/dL 2024 6:33 PM CUSTOMS DIRECTOR [facility] RDW 12.7 10.0 - 15.0 % 2024 6:33 PM CUSTOMS DIRECTOR [facility] Platelet Count 185 150 - 450 10e3/uL 2024 6:33 PM CUSTOMS DIRECTOR [facility] % Neutrophils 81 % 2024 6:33 PM CUSTOMS DIRECTOR [facility] % Lymphocytes 6 % 2024 6:33 PM CUSTOMS DIRECTOR [facility] % Monocytes 12 % 2024 6:33 PM CUSTOMS DIRECTOR [facility] % Eosinophils 0 % 2024 6:33 PM CUSTOMS DIRECTOR [facility] % Basophils 0 % 2024 6:33 PM CUSTOMS DIRECTOR [facility] % Immature Granulocytes 0 % 2024 6:33 PM CUSTOMS DIRECTOR [facility] NRBCs per 100 WBC 0 <1 /100 025 6:33 PM CUSTOMS DIRECTOR [facility] Absolute Neutrophils 9.4(H) 1.6 - 8.3 10e3/uL 2024 6:33 PM CUSTOMS DIRECTOR [facility] Absolute Lymphocytes 0.7(L) 0.8 - 5.3 10e3/uL 2024 6:33 PM CUSTOMS DIRECTOR [facility] Absolute Monocytes 1.4(H) 0.0 - 1.3 10e3/uL 2024 6:33 PM CUSTOMS DIRECTOR [facility] Absolute Eosinophils 0.0 0.0 - 0.7 10e3/uL 2024 6:33 PM CUSTOMS DIRECTOR [facility] Absolute Basophils 0.1 0.0 - 0.2 10e3/uL 2024 6:33 PM CUSTOMS DIRECTOR [facility] Absolute Immature Granulocytes 0.1 <=0.4 10e3/uL 2024 6:33 PM CUSTOMS DIRECTOR [facility] Absolute NRBCs 0.0 e3/uL 2024 6:33 PM CUSTOMS DIRECTOR [facility] Blood STRUCTURE OF LEFT UPPER LIMB / Unknown Venipuncture / Unknown 2024 6:07 PM CUSTOMS DIRECTOR 2024 6:12 PM CUSTOMS DIRECTOR us Sim Manzo MD LAB - BLOOD ORDERABLES F inal Result [facility] [address] Lab (1st floor, no room number) [place] [address], [facility] * TSH with free T4 reflex (2024 6:07 PM CUSTOMS DIRECTOR) TSH 1.05 0.30 - 4.20 uIU/mL 2024 7:00 PM CUSTOMS DIRECTOR [facility] Blood STRUCTURE OF LEFT UPPER LIMB / Unknown Venipuncture / Unknown 2024 6:07 PM CUSTOMS DIRECTOR 2024 6:12 PM CUSTOMS DIRECTOR Sim Manzo MD LAB - BLOOD ORDERABLES F inal Result [facility] [address] Lab (1st floor, no room number) [place] [address] * (ABNORMAL) Basic metabolic panel (2024 6:07 PM CUSTOMS DIRECTOR) Sodium 133(L) 135 - 145 mmol/L 2024 6:55 PM CUSTOMS DIRECTOR LABORATORY Potassium 4.4 3.4 - 5.3 mmol/L 2024 6:55 PM CUSTOMS DIRECTOR LABORATORY Chloride 97(L) 98 - 107 mmol/L 2024 6:55 PM CUSTOMS DIRECTOR LABORATORY Carbon Dioxide (CO2) 27 22 - 29 mmol/L 2024 6:55 PM CUSTOMS DIRECTOR LABORATORY Anion Gap 9 7 - 15 mmol/L 2024 6:55 PM CUSTOMS DIRECTOR LABORATORY Urea Nitrogen 20.3 8.0 - 23.0 mg/dL 2024 6:55 PM CUSTOMS DIRECTOR LABORATORY Creatinine 1.20(H) 0.67 - 1.17 mg/dL 2024 6:55 PM CUSTOMS DIRECTOR LABORATORY GFR Estimate 62 >60 mL/min/1.7 3m2 2024 6:55 PM CUSTOMS DIRECTOR LABORATORY Comment:eGFR calculated usin 2020 CKD-EPI equation. Calcium 10.5(H) 8.8 - 10.4 mg/dL 2024 6:55 PM CUSTOMS DIRECTOR LABORATORY Glucose 221(H) 70 - 99 mg/dL 2024 6:55 PM CUSTOMS DIRECTOR LABORATORY Blood STRUCTURE OF LEFT UPPER LIMB / Unknown Venipuncture / Unknown 2024 6:07 PM CUSTOMS DIRECTOR 2024 6:12 PM CUSTOMS DIRECTOR us Sim Manzo MD LAB - BLOOD ORDERABLES F inal Result [facility] [address] [facility] Lab (1st floor, no room number) [place] [address], [facility] * Extra Purple Top Tube (2024 6:07 PM CUSTOMS DIRECTOR) Hold Specimen JIC 2024 7:16 PM CUSTOMS DIRECTOR [facility] Blood STRUCTURE OF LEFT UPPER LIMB / Unknown Venipuncture / Unknown 2024 6:07 PM CUSTOMS DIRECTOR 2024 6:12 PM CUSTOMS DIRECTOR us Moris Petty MD LAB - BLOOD ORDERABLES Final Result [facility] [address] Lab (1st floor, no room number) [place] [address] * Extra Green Top ([place] Heparin) Tube (2024 6:07 PM CUSTOMS DIRECTOR) Hold Specimen [facility] 2024 7:16 PM CUSTOMS DIRECTOR [facility] Blood STRUCTURE OF LEFT UPPER LIMB / Unknown Venipuncture / Unknown 2024 6:07 PM CUSTOMS DIRECTOR 2024 6:12 PM CUSTOMS DIRECTOR us Moris Petty MD LAB - BLOOD ORDERABLES Final Result Performing Organization Address [facility]/ZIP Co de Phone Number [facility] [address] Lab (1st floor, no room number) [place] [address], [facility] * Extra Red Top Tube (2024 6:07 PM CUSTOMS DIRECTOR) Hold Specimen [facility] 2024 7:16 PM CUSTOMS DIRECTOR [facility] Blood STRUCTURE OF LEFT UPPER LIMB / Unknown Venipuncture / Unknown 2024 6:07 PM CUSTOMS DIRECTOR 2024 6:12 PM CUSTOMS DIRECTOR us Moris Petty MD LAB - BLOOD ORDERABLES Final Result [facility] [address] Lab (1st floor, no room number) [place] [address], [facility] * Extra Blue Top Tube (2024 6:07 PM CUSTOMS DIRECTOR) Hold Specimen [facility] 2024 7:16 PM CUSTOMS DIRECTOR LABORATORY Blood STRUCTURE OF LEFT UPPER LIMB / Unknown Venipuncture / Unknown 2024 6:07 PM CUSTOMS DIRECTOR 2024 6:12 PM CUSTOMS DIRECTOR Moris Petty MD LAB - BLOOD ORDERABLES Final Result LABORATORY [facility] [address] Lab (1st floor, no room number) [place] [address] * EKG 12-lead, tracing only (2024 6:04 PM CUSTOMS DIRECTOR) Systolic Blood Pressure mmHg RADIOLOGY RESULTS Diastolic Blood Pressure mmHg RADIOLOGY RESULTS Ventricular Rate 91 BPM RAD IOLOGY RESULTS Atrial Rate 91 BPM RADIOLOG Y RESULTS DC Interval 162 ms RADIOLOG Y RESULTS QRS Duration 102 ms RADIOLO GY RESULTS QT 362 ms RADIOLOGY RESULTS QTc 445 ms RADIOLOGY RESULTS P [place] 23 degrees RADIOLOGY RESULTS R AXIS 52 degrees RADIOLOGY RESULTS T [place] -56 degrees RADIOLOGY RESULTS Interpretation ECG Sinus rhythm with occasional Premature ventricular complexes Cannot rule out Anterior infarct , age undetermined ST & T wave abnormality, consider inferior ischemia Abnormal ECG No previous ECGs available Confirmed by - EMERGENCY ROOM, PHYSICIAN ([id number]), DEBORAH Laughlin ([id number]) on 06/18/2024 6:48:35 AM Also confirmed by - EMERGENCY ROOM, PHYSICIAN ([id number]), DEBORAH Laughlin ([id number]) on 06/18/2024 6:48:48 AM RADIOLOGY RESULTS 2024 6:04 PM CUSTOMS DIRECTOR 06/18/2024 6:48 AM CUSTOMS DIRECTOR Victor Manuel Encinas MD ECG ORDERABLES Edited [...] 1 dose $New Bag 2024 7:28 PM CUSTOMS DIRECTOR 1,000 mLs 500 mL/hr documented in this encounter Active and Recently Administered Medications Times are shown in CUSTOMS DIRECTOR. Scheduled Medication Order 06/15/2024 06/16/2024 2024 sodium [...] Out COVID-19 2024 2024 2024 7:27 PM CUSTOMS DIRECTOR COVID-19 2024 2024 06/28/2024 11:3 9 PM CDT documented as of this encounter Care Teams Radiographer Angiogram Relationship Specialty Start Date End Date System, Provider Not In PCP - General Clinic 06/17/24 documented as of this encounter
--- OUTSIDE RECORDS SUMMARY | 2024-06-29 19:40 | XMS_ITS | Referral Summary ---
Author Organization [facility] Address [address] [place] [address] Care Team Providers Care English Adjunct Faculty Name Role Phone Rosamaria Lane MD Unavailable [phone] [facility], [place] Unavailable Unavailable Allergies Active Allergy Reactions [...] long-term current use of insulin (HCC) by [facility]Non-Drug ; Combo Route) route once daily. Accu-chek Fastclix. 100 each 3 1 Active pen needle, diabetic (BD INSULIN PEN NEEDLE UF) 31 gauge x 5/16 needleIndications :Type 2 diabetes mellitus with stage 3a chronic kidney disease, with long-term current use of insulin (HCC) by [facility]Non-Drug ; Combo Route) route once daily. 100 [...] (arteriosclerotic cardiovascular disease) 03/01/2011 Overview (02/26/2012): *06/24/2002- [place]. 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 *08/10/2002- Angiogram complete. 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0 - 99.0 mg/dL [facility] BUN 16.0 7.0 - 18.0 mg/dL [facility] CREATININE 1.33(H) 0.60 - 1.30 mg/dL [facility] CALCIUM 9.3 8.5 - 10.1 mg/dL [facility] SODIUM 139.0 136.0 - 145.0 mmol/L [facility] POTASSIUM 4.2 3.5 - 5.1 mmol/L [facility] CHLORIDE 102.0 98.0 - 107.0 mmol/L [facility] CO2 26.1 21.0 - 32.0 mmol/L [facility] EST GFR (MDRD) 52.7 [facility] Comment: Calculated GFR for the patient [...] Contreras MD CHEMISTRY ORDERABLE Final Resu lt [facility] [address] [address], * HEP C ANTIBODY (01/02/2017 11:09 AM CDT) Hepatitis C Antibody Non-Reacti ve Non-Reacti ve 01/03/2017 11:52 AM CDT [facility] Blood VENOUS BLOOD SPECIMEN / Unknown 01/02/2017 11:09 AM CDT 01/03/2017 10:52 AM CDT Allan Wilder MD IMMUNOLOGY ORDERABLE Final Resul t Performing Organization Address City/[facility] Co de Phone Number [facility] [address] [address] from Last 3 Months or Most Recently Relevant to Health Maintenance Insurance [facility] MEDICARE ADVANTAGE [address] [place] [id number] MEDICARE PART A & B [employer] MEDICARE ADVANTAGE Advance Directives For more information, please contact: [phone] Documents on File Type Date Recorded 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
--- OUTSIDE RECORDS SUMMARY | 2024-06-29 19:40 | XMS_ITS | Clinical Summary ---
Author Organization [facility] Address [address] [place] [address] Care Team Providers Care Manager Of Patient Name Role Phone Rosamaria Lane MD Unavailable [phone] [facility], [place] Unavailable Unavailable Allergies Active Allergy [...] long-term current use of insulin (HCC) [place] [facility]Non-Drug ; Combo Route) route once daily. Accu-chek Fastclix. 100 each 3 1 Active pen needle, diabetic (BD INSULIN PEN NEEDLE UF) 31 gauge x 5/16 needleIndications :Type 2 diabetes mellitus with stage 3a chronic kidney disease, with long-term current use of insulin (HCC) [place] [facility]Non-Drug ; Combo Route) route once daily. 100 [...] (arteriosclerotic cardiovascular disease) 03/01/2011 Overview (02/26/2012): *06/24/2002- [place]. 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 *08/10/2002- Angiogram complete. 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 Not on file Not on file Last Filed Vital Signs Vital Sign Reading Time Taken Comments Blood Pressure 112/74 10/22/2022 1:14 PM CDT Pulse 62 12/03/2019 10:58 AM CDT Temperature 36.4 C (97.6 F) 02/26/2020 11:18 AM MATURITY CHECKER Respiratory Rate 14 10/01/2010 8:30 AM CDT [...] HGBA1C OP 6.8(H) 3.8 - 5.6 % [facility] Blood VENOUS BLOOD SPECIMEN / Unknown 01/26/2021 1:32 PM CDT Nargis Contreras MD CHEMISTRY ORDERABLE Final Resu lt Performing Organization Address [facility]/ZIP Co de Phone Number [address] [address], [place] [phone] * (ABNORMAL) BASIC METAB PROFILE (01/26/2021 1:32 PM CDT) GLUCOSE CASUAL OP 100.0(H) 70.0 - 99.0 mg/dL [facility] BUN 16.0 7.0 - 18.0 mg/dL [facility] CREATININE 1.33(H) 0.60 - 1.30 mg/dL [facility] CALCIUM 9.3 8.5 - 10.1 mg/dL [facility] SODIUM 139.0 136.0 - 145.0 mmol/L [facility] POTASSIUM 4.2 3.5 - 5.1 mmol/L [facility] CHLORIDE 102.0 98.0 - 107.0 mmol/L [facility] CO2 26.1 21.0 - 32.0 mmol/L [facility] EST GFR (MDRD) 52.7 [facility] Comment: Calculated GFR for the patient [...] Contreras MD CHEMISTRY ORDERABLE Final Resu lt [address] [place] [address], * HEP C ANTIBODY (01/02/2017 11:09 AM CDT) Hepatitis C Antibody Non-Reacti ve Non-Reacti ve 01/03/2017 11:[address] 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
--- OUTSIDE RECORDS SUMMARY | 2024-06-29 19:40 | XMS_ITS | Clinical Summary ---
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 Name Role Phone 3CareTeamCoordinator, 3CareTeamCoordinator Unava ilable Unavailable Conditions or Problems Problem Name Problem Code Onset Date Status Entry Date Provider Comment Standard Description Annotate Mild cognitive impairment 284713447 (SNOMED CT) Active 09/08 Summer Jamil PhD Mild neurocognitive disorder Spinal stenosis of lumbar region 21247723 (SNOMED CT) Active 11/07 Nellie Connelly MD Spinal stenosis of lumbar region Tremor, essential 566278403 (SNOMED CT) Active 11/07 Nellie Connelly MD Essential tremor Peripheral neuropathy 983969796 (SNOMED CT) Active 12/12 Beltran Rosenberg MD Peripheral nerve disease Gait imbalance 57008205 (SNOMED CT) Active 05/05 Beltran Rosenberg MD Abnormal gait Memory problems R41.3 (ICD-10-CM) Active 05/05 Beltran Rosenberg MD Other amnesia Medications Medication Instructions Start Date Stop Date Generic Name NDC Provider ARICEPT 5 MG TABS Take 1 tab by mouth once a day x1 month, then 10 mg daily thereafter 8 donepezil [id number] Bianca Ybarra PA-C TRESIBA FLEXTOUCH 100 UNIT/ML SOPN insulin degludec 89817932235 Bianca Ybarra PA-C TAMSULOSIN HCL 0.4 MG CAPS tamsulosin 53917222700 Bianca Ybarra PA-C SIMVASTATIN 10 MG TABS simvastatin 75242062542 Bianca Mehlhaus PA-C ASPIRIN LOW DOSE 81 MG TBEC TAKE 1 TABLET BY MOUTH DAILY aspirin 71155878005 Bianca MOON-Zeke METFORMIN HCL ER 500 MG [id number] metformin (glucophage xr) [id number] Bianca Ybarra PA-C GABAPENTIN 300 MG CAPS Take 1 po BID 1 gabapentin 75668080886 Nellie Connelly MD Medications Administered No information available. Allergies, Adverse Reactions, Alerts Allergy Name Reaction Description Start Date Severity Statu s Provider OXYCODONE Critical Active Bianca rizzoaus PA-C PENICILLIN Critical Active [facility] Results Date Name Value [...] Appointment 10:30 AM Nellie holland MD, [address], [address], [place], [address], Pending order Follow up Pending order Patient [...] Name Date Entry Date ORDERS Patient Instructions CPT-55488 No Charge CPT-91519 Npsy Interview w/Provider - 1st hour 2023 CPT-64089 Npsy Interp/Rpt by Provider - 1st hour 04/09/21 CPT-71133 Npsy Interp/Rpt by Provider - 2 hours 07/17/21 CPT-47975 Npsy Test by Tech (2+ Tests) - 1st 30 min CPT-06732 Npsy Test by Tech (2+ Tests) - 1.5 hours ORDERS Neuropsychology Evaluation 2 ORDERS Follow up after testing 2022 CPT-37562 MRI Lumbar W/O [id number] MRI-Lumbar W/O ORDERS Obtain outside records 11/07 ORDERS [facility] Therapy 11/07 CPT-97679 Nerve Conduction 7-8 studies CPT-22166 EMG with NCS (5+ muscles) - 1 limb 12/12 CPT-89295 EMG with NCS (4 or fewer muscles) - 1 johnson b [id number] MRI-Brain W/O ORDERS Vitamin B12 ORDERS Vitamin B1 (Thiamine) 05/05 ORDERS TSH CPT-37949 MRI Brain W/O ORDERS Neuropsychology Evaluation 2 Vital Signs No information available. Immunizations No information available. Advance Directives No information available.
[2024-06-29 19:52] VITALS: BP 128/66; PULSE 96; RESP 16; TEMP 37.4; O2SAT 96
--- NOTE | 2024-06-29 19:58 | ED_ITS ---
HPI - General Adult General Date Seen: 06/29/24 Chief complaint: Urogenital Problems, Male Stated complaint: catheter issues Time Seen by Provider: 06/29/24 19:45 History of Present Illness HPI narrative: The patient is a 79-year-old who I saw earlier today with urinary retention. We placed a Ramirez catheter and sent him home with that. He has some underlying dementia, his brings in back saying he just does not tolerating having the catheter in, he is hyper focused on it, has been tugging at it and has had a little bit of bleeding. He can not stop talking about how he feels like he needs to urinate. She just does not feel like the catheter is going to work. Related Data Home Medications ?Medication ?Instructions ?Recorded ?Confirmed cholecalciferol (vitamin D3) 25 25 mcg PO QDAY 06/17/23 06/29/24 mcg (1,000 unit) capsule Previous Rx's ?Medication ?Instructions ?Recorded Test Strips #100 ea 06/17/23 aspirin 81 mg tablet,delayed 81 mg PO QDAY #90 tabs 06/17/23 release (Adult Aspirin Regimen) lancets #100 ea 06/17/23 tamsulosin 0.4 mg capsule 0.4 mg PO DAILY #90 caps 06/17/23 metformin 500 mg tablet,extended 1,000 mg (2 x 500 mg) PO BID #360 07/07/23 release 24 hr tabs simvastatin 10 mg tablet 10 mg PO .Bedtime #90 tabs 06/21/24 pen needle, diabetic 31 gauge x #100 ea 06/28/24 5/16 insulin degludec 100 unit/mL (3 See Rx Instructions subcut DAILY 06/29/24 mL) subcutaneous pen 90 days #15 mL Allergies Allergy/AdvReac Type Severity Reaction Status Date / Time Penicillins Allergy Unknown Verified 06/29/24 13:34 oxycodone AdvReac Unknown feels Verified 06/29/24 13:34 beside himself - anxiety type reaction PFSH [facility] Medical History Wound infection ?T14.8XXA - Other injury of unspecified body region, initial encounter (ICD- 10) ?L08.9 - Local infection of the skin and subcutaneous tissue, unspecified (ICD-10) Frequent ventricular premature beats ?I49.3 - Ventricular premature depolarization (ICD-10) Health care directive on file ?Z78.9 - Other specified health status (ICD-10) History of myocardial infarction ?I25.2 - Old myocardial infarction (ICD-10) Amputation of toe of left foot ?S98.132A - Complete traumatic amputation of one left lesser toe, initial encounter (ICD-10) Surgical History History of tonsillectomy and adenoidectomy ?Z90.89 - Acquired absence of other organs (ICD-10) History of hernia repair ?Z98.890 - Other specified postprocedural states (ICD-10) ?Z87.19 - Personal history of other diseases of the digestive system (ICD-10) History of cholecystectomy ?Z90.49 - Acquired absence of other specified parts of digestive tract (ICD- 10) History of appendectomy ?Z90.49 - Acquired absence of other specified parts of digestive tract (ICD- 10) Family History Mother Cancer, Onset Age: 68 Father Heart disease, Onset Age: 63 Social History Narrative: former smoker What is your current living situation?: I presently have a place to live Problems where you live: no known problems In the past 12 months, utilities in danger of being shut off: no In past 12 months, lack of transportation kept you from medical appts, meetings, work, or getting things needed for daily living: no In the past 12 mos, have been you worried that your food would run out before you had money to buy more?: never true In the past 12 mos, the food you bought just didn't last and you didn't have money to buy more?: never true Smoking Status: Former smoker How often do you have a drink containing alcohol: never AUDIT-C Alcohol total score: 0 Non-prescribed substance use: denies use How often does anyone, including family, friends and others, physically hurt you : never How often does anyone, including family, friends and others, insult or talk down to you: never How often does anyone, including family, friends and others, threaten you with harm: never How often does anyone, including family, friends and others, scream or curse at you: never Exam Narrative: Exam Narrative: Vital signs reviewed In general, alert, nontoxic male. He is conversant and pleasant. Underlying dementia. There is a small amount of blood at the meatus. No blood in the catheter bag. Const: Vital Signs, click to edit/add: Vital Signs - 24 hr 06/29/24 19:52 Temperature 99.3 F Pulse Rate [Pulse Oximeter] 96 Respiratory Rate 16 Blood Pressure [Ri ght Upper Arm] 128/66 Pulse Oximetry 96 Oxygen Delivery Me thod Room Air Documenting provider has reviewed patient's vital signs: yes Course Course ED Course: Given that his just does not think he can tolerate this, we will discontinue the Ramirez. Discussed with her that I do not know how voiding will go over the next day, if he is not able to void in the next 12 hours bony to come back and will have to figure out how to manage this. Otherwise, I would still recommend outpatient Urology follow-up as we discussed there previous visit. Return as needed for urinary retention or other concerns. Vital Signs Vital signs: Initial Vital Signs Temperature 99.3 F 06/29/24 19:52 Temperature Source Temporal Artery Scan 06/29/24 19:52 Pulse Rate 96 06/29/24 19:52 Respiratory Rate 16 06/29/24 19:52 Blood Pressure 128/66 06/29/24 19:52 Blood Pressure Mean 86 06/29/24 19:52 Blood Pressure Position Sitting 06/29/24 19:52 Pulse Oximetry 96 06/29/24 19:52 Oxygen Delivery Method Room Air 06/29/24 19:52 Vital Signs Temperature 99.3 F 06/29/24 19:52 Pulse Rate 96 06/29/24 19:52 Respiratory Rate 16 06/29/24 19:52 Blood Pressure 128/66 06/29/24 19:52 Pulse Oximetry 96 06/29/24 19:52 Oxygen Delivery Method Room Air 06/29/24 19:52 Temperature 99.3 F 06/29/24 19:52 Pulse Rate 96 06/29/24 19:52 Respiratory Rate 16 06/29/24 19:52 Blood Pressure 128/66 06/29/24 19:52 Pulse Oximetry 96 06/29/24 19:52 Oxygen Delivery Method Room Air 06/29/24 19:52 Discharge Plan Discharge Clinical Impression: Problem with Ramirez catheter Patient Disposition: Home w/ Parent or Adult Condition: Improved Additional Instructions: We will have to see how he does with voiding over the next couple of days. If he is unable to void, and they will need to return to the emergency department. Otherwise, recommend Urology follow-up as discussed. Prescriptions: No Action cholecalciferol (vitamin D3) 25 mcg (1,000 unit) capsule 25 mcg PO QDAY aspirin [Adult Aspirin Regimen] 81 mg tablet,delayed release (DR/EC) 81 mg PO QDAY Qty: 90 4RF (DME) lancets Misc See Rx Instructions .Route Qty: 100 3RF Rx Instructions: tid testing tamsulosin 0.4 mg capsule 0.4 mg PO DAILY Qty: 90 3RF (DME) Test Strips Misc See Rx Instructions .Route Qty: 100 3RF Rx Instructions: tid testing insulin degludec 100 unit/mL (3 mL) insulin pen See Rx Instructions subcut DAILY 90 Days Qty: 15 4RF Rx Instructions: subcutaneously daily; 10 units in AM, 35 units in PM metformin 500 mg tablet extended release 24 hr 1,000 mg PO BID Qty: 360 4RF simvastatin 10 mg tablet 10 mg PO .Bedtime Qty: 90 0RF (DME) pen needle, diabetic 31 gauge x 5/16 needle See Rx Instructions .Route Qty: 100 0RF Rx Instructions: daily Follow Up/Referrals: Esther Arboleda MD [Primary Care Provider] - Stand Alone Forms: [employer] Info Instructions
[2024-06-29 20:02] VITALS: BP 122/68; PULSE 90; RESP 16; TEMP 37.4; O2SAT 96
--- OUTSIDE RECORDS SUMMARY | 2024-06-29 20:02 | XMS_ITS | Referral Summary ---
Author Organization [facility] Address [address] [place] [address] Care Team Providers Care Oracle Distribution Consultant Name Role Phone Rosamaria Lane MD Unavailable [phone] [facility], [place] Unavailable Unavailable Allergies Active Allergy [...] long-term current use of insulin (HCC) by [facility]Non-Drug ; Combo Route) route once daily. Accu-chek Fastclix. 100 each 3 1 Active pen needle, diabetic (BD INSULIN PEN NEEDLE UF) 31 gauge x 5/16 needleIndications :Type 2 diabetes mellitus with stage 3a chronic kidney disease, with long-term current use of insulin (HCC) by [facility].(Non-Drug ; Combo Route) route once daily. 100 [...] (arteriosclerotic cardiovascular disease) 03/01/2011 Overview (02/26/2012): *06/24/2002- [place]. Balloon angioplasty and stenting of the occluded Cx/OM artery using a 2.5x15mm balloon followed by [id number] B Velocity stent. *08/10/2002- Angiogram complete. 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 Respiratory Rate 14 10/01/2010 8:30 AM CDT [...] HGBA1C OP 6.8(H) 3.8 - 5.6 % [facility] Blood VENOUS BLOOD SPECIMEN / Unknown 01/26/2021 1:32 PM CDT Nargis Contreras MD CHEMISTRY ORDERABLE Final Resu lt [facility] [address] [address], * (ABNORMAL) BASIC METAB PROFILE (01/26/2021 1:32 PM CDT) GLUCOSE CASUAL OP 100.0(H) 70.0 - 99.0 mg/dL [facility] BUN 16.0 7.0 - 18.0 mg/dL [facility] CREATININE 1.33(H) 0.60 - 1.30 mg/dL [facility] CALCIUM 9.3 8.5 - 10.1 mg/dL [facility] SODIUM 139.0 136.0 - 145.0 mmol/L [facility] POTASSIUM 4.2 3.5 - 5.1 mmol/L [facility] CHLORIDE 102.0 98.0 - 107.0 mmol/L [facility] CO2 26.1 21.0 - 32.0 mmol/L [facility] EST GFR (MDRD) 52.7 [facility] Comment: Calculated GFR for the patient [...] Contreras MD CHEMISTRY ORDERABLE Final Resu lt [facility] [address] [address], * HEP C ANTIBODY (01/02/2017 11:09 AM CDT) Hepatitis C Antibody Non-Reacti ve Non-Reacti ve 01/03/2017 11:52 AM CDT [facility] Blood VENOUS BLOOD SPECIMEN / Unknown 01/02/2017 11:09 AM CDT 01/03/2017 10:52 AM CDT Allan Wilder MD IMMUNOLOGY ORDERABLE Final Resul t Performing Organization Address City/[facility] Co de Phone Number [facility] [address] [place] [address] from Last 3 Months or Most Recently Relevant to Health Maintenance Insurance [facility] MEDICARE ADVANTAGE [id number] [place] [id number] MEDICARE PART A & B [employer] MEDICARE ADVANTAGE Advance Directives For more information, please contact: [phone] Documents on File Type Date Recorded 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
--- OUTSIDE RECORDS SUMMARY | 2024-06-29 20:02 | XMS_ITS | Encounter Summary ---
Author Organization [place] Address [address] [place] [address] Care Team Providers Care Vehicle Fuel Systems Converter Name Role Phone System, Provider Not In Primary Care Provider Un available Reason for Visit * Reason Comments Generalized Weakness Encounter Details Date Type Department Care Team (Late st Contact Info) Description 2024 6:00 PM CHROMOSOMAL DISORDERS COUNSELOR - 2024 10:18 PM CHROMOSOMAL DISORDERS COUNSELOR Emergency [facility] Emergency Dept [address] [place] [address] Moris Petty MD EMERGENCY PHYSICIAN [facility] [address] [id number] COVID-19 virus infection; General weakness Discharge Disposition: [...] Comments Blood Pressure 134/77 2024 8:30 PM CHROMOSOMAL DISORDERS COUNSELOR Pulse 93 2024 8:30 PM CHROMOSOMAL DISORDERS COUNSELOR Temperature 36.8 C (98.3 F) 2024 6:04 PM CHROMOSOMAL DISORDERS COUNSELOR Respiratory Rate 18 2024 9:26 PM CHROMOSOMAL DISORDERS COUNSELOR Oxygen Saturation 95% 2024 8:16 PM CHROMOSOMAL DISORDERS COUNSELOR Inhaled Oxygen Concentration - - Weight 100.5 kg (221 lb 8 oz) 2024 6:04 PM CHROMOSOMAL DISORDERS COUNSELOR Height 182.9 cm (6') 2024 6:04 PM CHROMOSOMAL DISORDERS COUNSELOR Body Mass Index 30.04 2024 6:04 PM CHROMOSOMAL DISORDERS COUNSELOR documented in this encounter Discharge Instructions * Attachments The following attachments cannot be sent through Care Everywhere. * Weakness: Generalized (Malay) * (s) Discharge Instructions for COVID-19 Patients (Malay) documented in this encounter Medications at Time [...] walker,Pt had steady gate and no complaints. MOSOMAL DISORDERS COUNSELOR * Moris Petty MD - 2024 6:55 PM CST Emergency Department Note History of Present Illness Chief Complaint Generalized Weakness HPI Neymar Pruett is a 79 year old male with a past medical history significant for hypertension, hyperlipidemia, MS and type 2 diabetes here with his [...] cord compression Peripheral neuropathy Balance disorder Hypercholesterolemia MS Medications Zocor Metoprolol succinate Aspirin 81 mg [...] Bilirubin Urine Negative Ketones Urine Negative Specific [place] Urine 1.021 Blood Urine Negative pH Urine [...] Pressure Ventricular Rate 91 Atrial Rate 91 CA Interval 162 QRS Duration 102 QT 362 QTc 445 P [place] 23 R AXIS 52 T [place] -56 Interpretation ECG Sinus rhythm with occasional [...] Documentation None Medical Decision Making / Diagnosis [facility] Diagnoses: None MIPS None MDM Neymar Pruett [...] statements to me. Moris Petty MD 06/17/242227 MOSOMAL DISORDERS COUNSELOR * Elizabeth Peacock RN - 2024 6:03 [...] WDL WDL Cognitive/Neuro/Behavioral WDL Cognitive/Neuro/Behavioral WDL WDL MOSOMAL DISORDERS COUNSELOR * Katia Mcgregor RN - 2024 6:00 PM CST Bed: ED29 Expected date: Expected time: Means of arrival: Comments: [facility] 79M MOSOMAL DISORDERS COUNSELOR documented in this encounter Plan of Treatment Not on file documented as of this encounter Procedures Procedure Name Priority Date/Time Associated Diagnosis Comments ROUTINE UA WITH MICROSCOPIC REFLEX TO CULTURE STAT 2024 8:31 PM CHROMOSOMAL DISORDERS COUNSELOR TROPONIN T, HIGH SENSITIVITY STAT 2024 8:20 PM CHROMOSOMAL DISORDERS COUNSELOR XR CHEST 2 VIEWS STAT 2024 7:56 PM CHROMOSOMAL DISORDERS COUNSELOR INFLUENZA A/B, RSV AND SARS-COV2 PCR STAT 2024 6:35 PM CHROMOSOMAL DISORDERS COUNSELOR EXTRA TUBE STAT 2024 6:07 PM CHROMOSOMAL DISORDERS COUNSELOR EXTRA PURPLE TOP TUBE STAT 2024 6:07 PM CHROMOSOMAL DISORDERS COUNSELOR EXTRA GREEN TOP (LITHIUM HEPARIN) TUBE STAT 2024 6:07 PM CHROMOSOMAL DISORDERS COUNSELOR EXTRA RED TOP TUBE STAT 2024 6: 07 PM CHROMOSOMAL DISORDERS COUNSELOR EXTRA BLUE TOP TUBE STAT 2024 6 :07 PM CHROMOSOMAL DISORDERS COUNSELOR CBC WITH PLATELETS AND DIFFERENTIAL STAT 2024 6:07 PM CHROMOSOMAL DISORDERS COUNSELOR TROPONIN T, HIGH SENSITIVITY STAT 2024 6:07 PM CHROMOSOMAL DISORDERS COUNSELOR PROCALCITONIN STAT 2024 6:07 PM CHROMOSOMAL DISORDERS COUNSELOR CBC WITH PLATELETS & DIFFERENTIAL STAT 2024 6:07 PM CHROMOSOMAL DISORDERS COUNSELOR TSH WITH FREE T4 REFLEX STAT 2024 6:07 PM CHROMOSOMAL DISORDERS COUNSELOR BASIC METABOLIC PANEL STAT 2024 6:07 PM CHROMOSOMAL DISORDERS COUNSELOR EKG 12-LEAD, TRACING ONLY STAT 2024 6:04 PM CHROMOSOMAL DISORDERS COUNSELOR documented in this encounter Results * (ABNORMAL) UA with Microscopic reflex to Culture (2024 8:31 PM CHROMOSOMAL DISORDERS COUNSELOR) Color Urine Yellow Colorless, Straw, Light Yellow, Yellow 2024 8:52 PM CHROMOSOMAL DISORDERS COUNSELOR [facility] Appearance Urine Clear Clear 06/18/19 25 8:52 PM CHROMOSOMAL DISORDERS COUNSELOR [facility] Glucose Urine >=1000(A) Negative mg/dL 2024 8:52 PM CHROMOSOMAL DISORDERS COUNSELOR [facility] Bilirubin Urine Negative Negative 8:52 PM CHROMOSOMAL DISORDERS COUNSELOR [facility] Ketones Urine Negative Negative mg/dL 2024 8:52 PM CHROMOSOMAL DISORDERS COUNSELOR [facility] Specific [place] Urine 1.021 1.003 - 1.035 2024 8:52 PM CHROMOSOMAL DISORDERS COUNSELOR [facility] Blood Urine Negative Negative 2024 8:52 PM CHROMOSOMAL DISORDERS COUNSELOR [facility] pH Urine 7.5(H) 5.0 - 7.0 2024 8:52 PM CHROMOSOMAL DISORDERS COUNSELOR [facility] Protein Albumin Urine 30(A) Negative mg/dL 2024 8:52 PM CHROMOSOMAL DISORDERS COUNSELOR [facility] Urobilinogen Urine Normal Normal, 2.0 mg/dL 2024 8:52 PM CHROMOSOMAL DISORDERS COUNSELOR [facility] Nitrite Urine Negative Negative 2024 8:52 PM CHROMOSOMAL DISORDERS COUNSELOR [facility] Leukocyte Esterase Urine Negative Negative 2024 8:52 PM CHROMOSOMAL DISORDERS COUNSELOR [facility] Mucus Urine Present(A) None Seen /LPF 2024 8:52 PM CHROMOSOMAL DISORDERS COUNSELOR [facility] RBC Urine 2 <=2 /HPF 2024 8:52 PM CHROMOSOMAL DISORDERS COUNSELOR [facility] WBC Urine 3 <=5 /HPF 2024 8:52 PM CHROMOSOMAL DISORDERS COUNSELOR [facility] Urine MID-STREAM URINE SPECIMEN / Unknown Non-blood Collection / Unknown 2024 8:31 PM CHROMOSOMAL DISORDERS COUNSELOR 2024 8:38 PM CHROMOSOMAL DISORDERS COUNSELOR Narrative [facility] - 2024 8:52 PM CHROMOSOMAL DISORDERS COUNSELOR Urine Culture not indicated us Sim Manzo MD LAB - URINE ORDERABLES F inal Result LABORATORY [facility] [address] [facility] Lab (1st floor, no room number) [place] [address] * (ABNORMAL) Troponin T, High Sensitivity (2024 8:20 PM CHROMOSOMAL DISORDERS COUNSELOR) Troponin T, High Sensitivity 39(H) <=22 ng/L 2024 8:56 PM CHROMOSOMAL DISORDERS COUNSELOR [facility] Comment: Either a High Sensitivity [...] Unknown Venipuncture / Unknown 2024 8:20 PM CHROMOSOMAL DISORDERS COUNSELOR 2024 8:34 PM CHROMOSOMAL DISORDERS COUNSELOR Moris Petty MD LAB - BLOOD ORDERABLES Final Result LABORATORY [facility] [address] Lab (1st floor, no room number) [place] [address] * XR Chest 2 Views (2024 7:56 PM CHROMOSOMAL DISORDERS COUNSELOR) Anatomical Region Laterality Modality Chest Digital Radiogra phy 2024 7:56 PM CHROMOSOMAL DISORDERS COUNSELOR Impressions 2024 7:59 PM CHROMOSOMAL DISORDERS COUNSELOR IMPRESSION: Negative chest. Narrative 2024 7:59 PM CHROMOSOMAL DISORDERS COUNSELOR EXAM: XR CHEST 2 VIEWS LOCATION: [facility] DATE: 2024 INDICATION: cough, weakness COMPARISON: None. Procedure Note Samm Wilcox MD - 2024 EXAM: XR CHEST 2 VIEWS LOCATION: [facility] DATE: 2024 INDICATION: cough, weakness COMPARISON: None. IMPRESSION: Negative chest. Result [facility] Moris Petty MD IMG DIAGNOSTIC IMAGING ORDERA BLES Final Result * (ABNORMAL) Influenza A/B, RSV and SARS-CoV2 PCR (COVID-19) Nose (2024 6:35 PM CHROMOSOMAL DISORDERS COUNSELOR) Influenza A PCR Negative Negative 2024 7:27 PM CHROMOSOMAL DISORDERS COUNSELOR [facility] Influenza B PCR Negative Negative 2024 7:27 PM CHROMOSOMAL DISORDERS COUNSELOR [facility] RSV PCR Negative Negative 2024 7:27 PM CHROMOSOMAL DISORDERS COUNSELOR [facility] SARS CoV2 PCR Positive(A) Negative 2024 7:27 PM CHROMOSOMAL DISORDERS COUNSELOR LABORATORY Comment:POSITIVE: SARS-CoV-2 (COVID-19) RNA detected, presumed positive. Swab NASAL STRUCTURE / Unknown Non-blood Collection / Unknown 2024 6:35 PM CHROMOSOMAL DISORDERS COUNSELOR 2024 6:45 PM CHROMOSOMAL DISORDERS COUNSELOR [facility] LABORATORY - 2024 7:27 PM CHROMOSOMAL DISORDERS COUNSELOR Testing was performed using the Xpert Xpress CoV2/Flu/RSV Assay on the [employer] GeneXpert Instrument. This test should be ordered [...] This test was validated by the [facility] [email or web address]. These laboratories are certified under the Clinical Laboratory Improvement Amendments of 1988 (CLIA-88) as qualified to perfom high complexity laboratory testing. us Sim Manzo MD LAB - MICRO GENERAL [facility] Final Result [facility] Lab [address] [facility] Lab (1st floor, no room number) [place] [address], [facility] * Procalcitonin (2024 6:07 PM CHROMOSOMAL DISORDERS COUNSELOR) Procalcitonin 0.11 <0.50 ng/mL 2024 7:58 PM CHROMOSOMAL DISORDERS COUNSELOR LABORATORY Comment: Interpretation and Recommendations <0.5 ng/mL: Systemic bacterial infection unlikely. Local bacterial infection is possible. 0.5-1.99 ng/mL: Systemic bacterial infection possible, but various other conditions are known to induce PCT as well. >=2.00 ng/mL: Systemic bacterial infection likely, unless other causes are known. Decision to start antibiotics should not be based on procalcitonin level alone. See Procalcitonin Guidance document for more details. [email or web address] Factors that may affect PCT levels (not [...] Unknown Venipuncture / Unknown 2024 6:07 PM CHROMOSOMAL DISORDERS COUNSELOR 2024 6:12 PM CHROMOSOMAL DISORDERS COUNSELOR us Moris Petty MD LAB - BLOOD ORDERABLES Final Result [facility] [address] [facility] Lab (1st floor, no room number) [place] [address], [facility] * (ABNORMAL) Troponin T, High Sensitivity (2024 6:07 PM CHROMOSOMAL DISORDERS COUNSELOR) [facility] Troponin T, High Sensitivity 39(H) <=22 ng/L 2024 7:58 PM CHROMOSOMAL DISORDERS COUNSELOR LABORATORY Comment: Either a High Sensitivity Troponin [...] Unknown Venipuncture / Unknown 2024 6:07 PM CHROMOSOMAL DISORDERS COUNSELOR 2024 6:12 PM CHROMOSOMAL DISORDERS COUNSELOR us Moris Petty MD LAB - BLOOD ORDERABLES Final Result [facility] [address] Lab (1st floor, no room number) [place] [address], [facility] * (ABNORMAL) CBC with platelets and differential (2024 6:07 PM CHROMOSOMAL DISORDERS COUNSELOR) WBC Count 11.6(H) 4.0 - 11.0 10e3/uL 2024 6:33 PM CHROMOSOMAL DISORDERS COUNSELOR [facility] RBC Count 4.70 4.40 - 5.90 10e6/uL 2024 6:33 PM CHROMOSOMAL DISORDERS COUNSELOR [facility] Hemoglobin 14.3 13.3 - 17.7 g/dL 2024 6:33 PM CHROMOSOMAL DISORDERS COUNSELOR [facility] Hematocrit 42.3 40.0 - 53.0 % 2024 6:33 PM CHROMOSOMAL DISORDERS COUNSELOR [facility] MCV 90 78 - 100 fL 2024 6:33 PM CHROMOSOMAL DISORDERS COUNSELOR [facility] MCH 30.4 26.5 - 33.0 pg 2024 6:33 PM CHROMOSOMAL DISORDERS COUNSELOR [facility] MCHC 33.8 31.5 - 36.5 g/dL 2024 6:33 PM CHROMOSOMAL DISORDERS COUNSELOR [facility] RDW 12.7 10.0 - 15.0 % 2024 6:33 PM CHROMOSOMAL DISORDERS COUNSELOR [facility] Platelet Count 185 150 - 450 10e3/uL 2024 6:33 PM CHROMOSOMAL DISORDERS COUNSELOR [facility] % Neutrophils 81 % 2024 6:33 PM CHROMOSOMAL DISORDERS COUNSELOR [facility] % Lymphocytes 6 % 2024 6:33 PM CHROMOSOMAL DISORDERS COUNSELOR [facility] % Monocytes 12 % 2024 6:33 PM CHROMOSOMAL DISORDERS COUNSELOR [facility] % Eosinophils 0 % 2024 6:33 PM CHROMOSOMAL DISORDERS COUNSELOR [facility] % Basophils 0 % 2024 6:33 PM CHROMOSOMAL DISORDERS COUNSELOR [facility] % Immature Granulocytes 0 % 2024 6:33 PM CHROMOSOMAL DISORDERS COUNSELOR [facility] NRBCs per 100 WBC 0 <1 /100 025 6:33 PM CHROMOSOMAL DISORDERS COUNSELOR [facility] Absolute Neutrophils 9.4(H) 1.6 - 8.3 10e3/uL 2024 6:33 PM CHROMOSOMAL DISORDERS COUNSELOR [facility] Absolute Lymphocytes 0.7(L) 0.8 - 5.3 10e3/uL 2024 6:33 PM CHROMOSOMAL DISORDERS COUNSELOR [facility] Absolute Monocytes 1.4(H) 0.0 - 1.3 10e3/uL 2024 6:33 PM CHROMOSOMAL DISORDERS COUNSELOR [facility] Absolute Eosinophils 0.0 0.0 - 0.7 10e3/uL 2024 6:33 PM CHROMOSOMAL DISORDERS COUNSELOR [facility] Absolute Basophils 0.1 0.0 - 0.2 10e3/uL 2024 6:33 PM CHROMOSOMAL DISORDERS COUNSELOR [facility] Absolute Immature Granulocytes 0.1 <=0.4 10e3/uL 2024 6:33 PM CHROMOSOMAL DISORDERS COUNSELOR [facility] Absolute NRBCs 0.0 e3/uL 2024 6:33 PM CHROMOSOMAL DISORDERS COUNSELOR [facility] Blood STRUCTURE OF LEFT UPPER LIMB / Unknown Venipuncture / Unknown 2024 6:07 PM CHROMOSOMAL DISORDERS COUNSELOR 2024 6:12 PM CHROMOSOMAL DISORDERS COUNSELOR us Sim Manzo MD LAB - BLOOD ORDERABLES F inal Result [facility] Lab [address] Lab (1st floor, no room number) [place] [address], [facility] * TSH with free T4 reflex (2024 6:07 PM CHROMOSOMAL DISORDERS COUNSELOR) TSH 1.05 0.30 - 4.20 uIU/mL 2024 7:00 PM CHROMOSOMAL DISORDERS COUNSELOR [facility] Blood STRUCTURE OF LEFT UPPER LIMB / Unknown Venipuncture / Unknown 2024 6:07 PM CHROMOSOMAL DISORDERS COUNSELOR 2024 6:12 PM CHROMOSOMAL DISORDERS COUNSELOR Sim Manzo MD LAB - BLOOD ORDERABLES F inal Result [facility] [address] Lab (1st floor, no room number) [place] [address] * (ABNORMAL) Basic metabolic panel (2024 6:07 PM CHROMOSOMAL DISORDERS COUNSELOR) Sodium 133(L) 135 - 145 mmol/L 2024 6:55 PM CHROMOSOMAL DISORDERS COUNSELOR LABORATORY Potassium 4.4 3.4 - 5.3 mmol/L 2024 6:55 PM CHROMOSOMAL DISORDERS COUNSELOR LABORATORY Chloride 97(L) 98 - 107 mmol/L 2024 6:55 PM CHROMOSOMAL DISORDERS COUNSELOR LABORATORY Carbon Dioxide (CO2) 27 22 - 29 mmol/L 2024 6:55 PM CHROMOSOMAL DISORDERS COUNSELOR LABORATORY Anion Gap 9 7 - 15 mmol/L 2024 6:55 PM CHROMOSOMAL DISORDERS COUNSELOR LABORATORY Urea Nitrogen 20.3 8.0 - 23.0 mg/dL 2024 6:55 PM CHROMOSOMAL DISORDERS COUNSELOR LABORATORY Creatinine 1.20(H) 0.67 - 1.17 mg/dL 2024 6:55 PM CHROMOSOMAL DISORDERS COUNSELOR LABORATORY GFR Estimate 62 >60 mL/min/1.7 3m2 2024 6:55 PM CHROMOSOMAL DISORDERS COUNSELOR LABORATORY Comment:eGFR calculated usin 2020 CKD-EPI equation. Calcium 10.5(H) 8.8 - 10.4 mg/dL 2024 6:55 PM CHROMOSOMAL DISORDERS COUNSELOR LABORATORY Glucose 221(H) 70 - 99 mg/dL 2024 6:55 PM CHROMOSOMAL DISORDERS COUNSELOR LABORATORY Blood STRUCTURE OF LEFT UPPER LIMB / Unknown Venipuncture / Unknown 2024 6:07 PM CHROMOSOMAL DISORDERS COUNSELOR 2024 6:12 PM CHROMOSOMAL DISORDERS COUNSELOR us Sim Manzo MD LAB - BLOOD ORDERABLES F inal Result [facility] [address] [facility] Lab (1st floor, no room number) [place] [address], [facility] * Extra Purple Top Tube (2024 6:07 PM CHROMOSOMAL DISORDERS COUNSELOR) Hold Specimen JIC 2024 7:16 PM CHROMOSOMAL DISORDERS COUNSELOR [facility] Blood STRUCTURE OF LEFT UPPER LIMB / Unknown Venipuncture / Unknown 2024 6:07 PM CHROMOSOMAL DISORDERS COUNSELOR 2024 6:12 PM CHROMOSOMAL DISORDERS COUNSELOR us Moris Petty MD LAB - BLOOD ORDERABLES Final Result [facility] [address] Lab (1st floor, no room number) [place] [address] * Extra Green Top ([place] Heparin) Tube (2024 6:07 PM CHROMOSOMAL DISORDERS COUNSELOR) Hold Specimen [facility] 2024 7:16 PM CHROMOSOMAL DISORDERS COUNSELOR [facility] Blood STRUCTURE OF LEFT UPPER LIMB / Unknown Venipuncture / Unknown 2024 6:07 PM CHROMOSOMAL DISORDERS COUNSELOR 2024 6:12 PM CHROMOSOMAL DISORDERS COUNSELOR us Moris Petty MD LAB - BLOOD ORDERABLES Final Result Performing Organization Address [facility]/ZIP Co de Phone Number [facility] [address] Lab (1st floor, no room number) [place] [address], [facility] * Extra Red Top Tube (2024 6:07 PM CHROMOSOMAL DISORDERS COUNSELOR) Hold Specimen [facility] 2024 7:16 PM CHROMOSOMAL DISORDERS COUNSELOR [facility] Blood STRUCTURE OF LEFT UPPER LIMB / Unknown Venipuncture / Unknown 2024 6:07 PM CHROMOSOMAL DISORDERS COUNSELOR 2024 6:12 PM CHROMOSOMAL DISORDERS COUNSELOR us Moris Petty MD LAB - BLOOD ORDERABLES Final Result [facility] [address] Lab (1st floor, no room number) [place] [address], [facility] * Extra Blue Top Tube (2024 6:07 PM CHROMOSOMAL DISORDERS COUNSELOR) Hold Specimen [facility] 2024 7:16 PM CHROMOSOMAL DISORDERS COUNSELOR LABORATORY Blood STRUCTURE OF LEFT UPPER LIMB / Unknown Venipuncture / Unknown 2024 6:07 PM CHROMOSOMAL DISORDERS COUNSELOR 2024 6:12 PM CHROMOSOMAL DISORDERS COUNSELOR Moris Petty MD LAB - BLOOD ORDERABLES Final Result LABORATORY [facility] [address] Lab (1st floor, no room number) [place] [address] * EKG 12-lead, tracing only (2024 6:04 PM CHROMOSOMAL DISORDERS COUNSELOR) Systolic Blood Pressure mmHg RADIOLOGY RESULTS Diastolic Blood Pressure mmHg RADIOLOGY RESULTS Ventricular Rate 91 BPM RAD IOLOGY RESULTS Atrial Rate 91 BPM RADIOLOG Y RESULTS CA Interval 162 ms RADIOLOG Y RESULTS QRS Duration 102 ms RADIOLO GY RESULTS QT 362 ms RADIOLOGY RESULTS QTc 445 ms RADIOLOGY RESULTS P [place] 23 degrees RADIOLOGY RESULTS R AXIS 52 degrees RADIOLOGY RESULTS T [place] -56 degrees RADIOLOGY RESULTS Interpretation ECG Sinus rhythm with occasional Premature ventricular complexes Cannot rule out Anterior infarct , age undetermined ST & T wave abnormality, consider inferior ischemia Abnormal ECG No previous ECGs available Confirmed by - EMERGENCY ROOM, PHYSICIAN ([id number]), DEBORAH Laughlin ([id number]) on 06/18/2024 6:48:35 AM Also confirmed by - EMERGENCY ROOM, PHYSICIAN ([id number]), DEBORAH Laughlin ([id number]) on 06/18/2024 6:48:48 AM RADIOLOGY RESULTS 2024 6:04 PM CHROMOSOMAL DISORDERS COUNSELOR 06/18/2024 6:48 AM CHROMOSOMAL DISORDERS COUNSELOR Victor Manuel Encinas MD ECG ORDERABLES Edited [...] 1 dose $New Bag 2024 7:28 PM CHROMOSOMAL DISORDERS COUNSELOR 1,000 mLs 500 mL/hr documented in this encounter Active and Recently Administered Medications Times are shown in CHROMOSOMAL DISORDERS COUNSELOR. Scheduled Medication Order 06/15/2024 06/16/2024 2024 sodium [...] Out COVID-19 2024 2024 2024 7:27 PM CHROMOSOMAL DISORDERS COUNSELOR COVID-19 2024 2024 06/28/2024 11:3 9 PM CDT documented as of this encounter Care Teams Vehicle Fuel Systems Converter Relationship Specialty Start Date End Date System, Provider Not In PCP - General Clinic 06/17/24 documented as of this encounter
--- OUTSIDE RECORDS SUMMARY | 2024-06-29 20:02 | XMS_ITS | Clinical Summary ---
Author Organization [facility] Address [address] [place] [address] Care Team Providers Care Head Of Merchandise Buying Name Role Phone System, Provider Not In [...] Department Care Team Description 2024 6:00 PM [facility]ER - 2024 10:18 PM [facility] Emergency [facility] Emergency Dept [address] [place] [address] Moris Petty MD COVID-19 virus infection; General [...] Comments Blood Pressure 134/77 2024 8:30 PM [facility] S[facility] Pulse 93 2024 8:30 PM [facility] Temperature 36.8 C (98.3 F) 2024 6:04 PM [facility]ER Respiratory Rate 18 2024 9:26 PM [facility] Oxygen Saturation 95% 2024 8:16 PM [facility]ER Inhaled Oxygen Concentration - - Weight 100.5 kg (221 lb 8 oz) 2024 6:04 PM [facility] Height 182.9 cm (6') 2024 6:04 PM [facility] Body Mass Index 30.04 2024 6:04 PM [facility] SANDER Plan of Treatment Health Maintenance Due Date [...] REFLEX TO CULTURE STAT 2024 8:31 PM [facility] TROPONIN T, HIGH SENSITIVITY STAT 2024 8:20 PM [facility] XR CHEST 2 VIEWS STAT 2024 7:56 PM [facility] INFLUENZA A/B, RSV AND SARS-COV2 PCR STAT 2024 6:35 PM [facility] CBC WITH PLATELETS & DIFFERENTIAL STAT 2024 6:07 PM [facility] PROCALCITONIN STAT 2024 6:07 PM [facility] SANDER TROPONIN T, HIGH SENSITIVITY STAT 2024 6:07 PM [facility] CBC WITH PLATELETS AND DIFFERENTIAL STAT 2024 6:07 PM [facility]ER TSH WITH FREE T4 REFLEX STAT 2024 6:07 PM [facility]ER BASIC METABOLIC PANEL STAT 2024 6:07 PM [facility]ER EXTRA PURPLE TOP TUBE STAT 2024 6:07 PM [facility]ER EXTRA GREEN TOP (LITHIUM HEPARIN) TUBE STAT 2024 6:07 PM [facility] EXTRA RED TOP TUBE STAT 2024 6: 07 PM [facility] EXTRA BLUE TOP TUBE STAT 2024 6 :07 PM [facility]ER EXTRA TUBE STAT 2024 6:07 PM [facility]ER EKG 12-LEAD, TRACING ONLY STAT 2024 6:04 PM [facility]ER from Last 3 Months Results * (ABNORMAL) UA with Microscopic reflex to Culture (2024 8:31 PM [facility]ER) Color Urine Yellow Colorless, Straw, Light Yellow, Yellow 2024 8:52 PM [facility] Appearance Urine Clear Clear 06/18/19 8:52 PM [facility] LABORATORY Glucose Urine >=1000(A) Negative mg/dL 2024 8:52 PM [facility] LABORATORY Bilirubin Urine Negative Negative 8:52 PM [facility] LABORATORY Ketones Urine Negative Negative mg/dL 2024 8:52 PM [facility] LABORATORY Specific [place] Urine 1.021 1.003 - 1.035 2024 8:52 PM [facility] LABORATORY Blood Urine Negative Negative 2024 8:52 PM [facility] LABORATORY pH Urine 7.5(H) 5.0 - 7.0 2024 8:52 PM [facility] LABORATORY Protein Albumin Urine 30(A) Negative mg/dL 2024 8:52 PM [facility] LABORATORY Urobilinogen Urine Normal Normal, 2.0 mg/dL 2024 8:52 PM [facility] LABORATORY Nitrite Urine Negative Negative 2024 8:52 PM [facility] LABORATORY Leukocyte Esterase Urine Negative Negative 2024 8:52 PM [facility] LABORATORY Mucus Urine Present(A) None Seen /LPF 2024 8:52 PM [facility] LABORATORY RBC Urine 2 <=2 /HPF 2024 8:52 PM [facility] LABORATORY WBC Urine 3 <=5 /HPF 2024 8:52 PM [facility] LABORATORY Urine MID-STREAM URINE SPECIMEN / Unknown Non-blood Collection / Unknown 2024 8:31 PM [facility]ER 2024 8:38 PM [facility] Narrative LABORATORY - 2024 8:52 PM [facility]ER Urine Culture not indicated us Sim Manzo MD LAB - URINE ORDERABLES F inal Result LABORATORY [facility] Acute Care Lab [address] [facility] Lab (1st floor, no room number) [place] [address], [facility] * (ABNORMAL) Troponin T, High Sensitivity (2024 8:20 PM [facility]ER) Only the most recent of2 resultswithin the time period is included. Troponin T, High Sensitivity 39(H) <=22 ng/L 2024 8:56 PM [facility] LABORATORY Comment: Either a High Sensitivity Troponin [...] Unknown Venipuncture / Unknown 2024 8:20 PM [facility]ER 2024 8:34 PM [facility]ER Moris Petty MD LAB - BLOOD ORDERABLES Final Result [facility] Acute Care Lab [address] [facility] Lab (1st floor, no room number) [place] [address] * XR Chest 2 Views (2024 7:56 PM [facility] SANDER) Anatomical Region Laterality Modality Chest Digital Radiogra phy 2024 7:56 PM [facility]ER Impressions 2024 7:59 PM [facility]ER IMPRESSION: Negative chest. Narrative 2024 7:59 PM [facility] SANDER EXAM: XR CHEST 2 VIEWS LOCATION: [facility] DATE: 2024 INDICATION: cough, weakness COMPARISON: None. Procedure Note Samm Wilcox MD - 2024 EXAM: XR CHEST 2 VIEWS LOCATION: [facility] DATE: 2024 INDICATION: cough, weakness COMPARISON: None. IMPRESSION: Negative chest. Moris Petty MD IMG DIAGNOSTIC IMAGING ORDERA BLES Final Result * (ABNORMAL) Influenza A/B, RSV and SARS-CoV2 PCR (COVID-19) Nose (2024 6:35 PM [facility]) Influenza A PCR Negative Negative 2024 7:27 PM [facility] Influenza B PCR Negative Negative 2024 7:27 PM [facility] RSV PCR Negative Negative 2024 7:27 PM [facility] LABORATORY SARS CoV2 PCR Positive(A) Negative 2024 7:27 PM [facility] LABORATORY Comment:POSITIVE: SARS-CoV-2 (COVID-19) RNA detected, presumed positive. Swab NASAL STRUCTURE / Unknown Non-blood Collection / Unknown 2024 6:35 PM [facility] 2024 6:45 PM [facility]ER formerly [facility] LABORATORY - 2024 7:27 PM [facility]ER Testing was performed using the Xpert Xpress CoV2/Flu/RSV Assay on the [employer].Xpert Instrument. This test should be ordered for [...] management. This test was validated by the [facility]. These laboratories are certified under the Clinical Laboratory Improvement Amendments of 1988 (CLIA-88) as qualified to perfom high complexity laboratory testing. us Sim Manzo MD LAB - MICRO GENERAL ORDIraj NOGUERA Final Result [facility] Acute Care Lab [address] Lab (1st floor, no room number) [place] [address], [facility] * Extra Purple Top Tube (2024 6:07 PM [facility]ER) Hold Specimen [facility] 2024 7:16 PM [facility] Blood STRUCTURE OF LEFT UPPER LIMB / Unknown Venipuncture / Unknown 2024 6:07 PM [facility]ER 2024 6:12 PM [facility]ANDER us Moris Petty MD LAB - BLOOD ORDERABLES Final Result [facility] Care Lab [address] Lab (1st floor, no room number) [place] [address] * Extra Green Top ([place] Heparin) Tube (2024 6:07 PM [facility] SANDER) Hold Specimen [facility] 2024 7:16 PM [facility] Blood STRUCTURE OF LEFT UPPER LIMB / Unknown Venipuncture / Unknown 2024 6:07 PM [facility]ER 2024 6:12 PM [facility] SANDER us Moris Petty MD LAB - BLOOD ORDERABLES Final Result [facility] Lab [address] Lab (1st floor, no room number) [place] [address], [facility] * Extra Red Top Tube (2024 6:07 PM [facility] SANDER) Hold Specimen [facility] 2024 7:16 PM [facility] Blood STRUCTURE OF LEFT UPPER LIMB / Unknown Venipuncture / Unknown 2024 6:07 PM [facility] SANDER 2024 6:12 PM [facility] SANDER us Moris Petty MD LAB - BLOOD ORDERABLES Final Result [facility] Care Lab [address] Lab (1st floor, no room number) [place] [address], [facility] * Extra Blue Top Tube (2024 6:07 PM [facility] SANDER) Hold Specimen JIC 2024 7:16 PM [facility] Blood STRUCTURE OF LEFT UPPER LIMB / Unknown Venipuncture / Unknown 2024 6:07 PM [facility]ER 2024 6:12 PM [facility]ANDER us Moris Petty MD LAB - BLOOD ORDERABLES Final Result [facility] LABORATORY [facility] Acute Care Lab [address] Lab (1st floor, no room number) [place] [address], [facility] * (ABNORMAL) CBC with platelets and differential (2024 6:07 PM [facility]ANDER) WBC Count 11.6(H) 4.0 - 11.0 10e3/uL 2024 6:33 PM [facility] RBC Count 4.70 4.40 - 5.90 10e6/uL 2024 6:33 PM [facility] Hemoglobin 14.3 13.3 - 17.7 g/dL 2024 6:33 PM [facility] Hematocrit 42.3 40.0 - 53.0 % 2024 6:33 PM [facility] MCV 90 78 - 100 fL 2024 6:33 PM [facility] MCH 30.4 26.5 - 33.0 pg 2024 6:33 PM [facility] MCHC 33.8 31.5 - 36.5 g/dL 2024 6:33 PM [facility] RDW 12.7 10.0 - 15.0 % 2024 6:33 PM [facility] Platelet Count 185 150 - 450 10e3/uL 2024 6:33 PM [facility] % Neutrophils 81 % 2024 6:33 PM [facility]LO[facility] SANDER [facility] % Lymphocytes 6 % 2024 6:33 PM [facility]LO[facility] SAND[facility] % Monocytes 12 % 2024 6:33 PM [facility]AND[facility] % Eosinophils 0 % 2024 6:33 PM [facility] % Basophils 0 % 2024 6:33 PM [facility] % Immature Granulocytes 0 % 2024 6:33 PM [facility] NRBCs per 100 WBC 0 <1 /100 025 6:33 PM [facility] Absolute Neutrophils 9.4(H) 1.6 - 8.3 10e3/uL 2024 6:33 PM [facility] Absolute Lymphocytes 0.7(L) 0.8 - 5.3 10e3/uL 2024 6:33 PM [facility] LABORATORY Absolute Monocytes 1.4(H) 0.0 - 1.3 10e3/uL 2024 6:33 PM [facility] LABORATORY Absolute Eosinophils 0.0 0.0 - 0.7 10e3/uL 2024 6:33 PM [facility] LABORATORY Absolute Basophils 0.1 0.0 - 0.2 10e3/uL 2024 6:33 PM [facility] LABORATORY Absolute Immature Granulocytes 0.1 <=0.4 10e3/uL 2024 6:33 PM [facility] LABORATORY Absolute NRBCs 0.0 10e3/uL 2024 6:33 PM [facility] LABORATORY Blood STRUCTURE OF LEFT UPPER LIMB / Unknown Venipuncture / Unknown 2024 6:07 PM [facility]ER 2024 6:12 PM [facility] SANDER us Sim Manzo MD LAB - BLOOD ORDERABLES F inal Result LABORATORY [facility] Acute Care Lab [address] [facility] Lab (1st floor, no room number) [place] [address] * Procalcitonin (2024 6:07 PM [facility] SANDER) [facility] Procalcitonin 0.11 <0.50 ng/mL 2024 7:58 PM [facility] LABORATORY Comment: Interpretation and Recommendations <0.5 ng/mL: Systemic bacterial infection unlikely. Local bacterial infection is possible. 0.5-1.99 ng/mL: Systemic bacterial infection possible, but various other conditions are known to induce PCT as well. >=2.00 ng/mL: Systemic bacterial infection likely, unless other causes are known. Decision to start antibiotics should not be based on procalcitonin level alone. See Procalcitonin Guidance document for more details. [email or web address] Factors that may affect PCT levels (not [...] Unknown Venipuncture / Unknown 2024 6:07 PM [facility]ER 2024 6:12 PM [facility]ER us Moris Petty MD LAB - BLOOD ORDERABLES Final Result Performing Organization Address [facility]/ZIP Co de Phone Number [facility] [address] Lab (1st floor, no room number) [place] [address] * TSH with free T4 reflex (2024 6:07 PM [facility]ANDER) TSH 1.05 0.30 - 4.20 uIU/mL 2024 7:00 PM [facility] LABORATORY Blood STRUCTURE OF LEFT UPPER LIMB / Unknown Venipuncture / Unknown 2024 6:07 PM [facility] SANDER 2024 6:12 PM [facility] SANDER us Sim Manzo MD LAB - BLOOD ORDERABLES F inal Result Performing Organization Address City/[facility]/ZIP Co de Phone Number [facility] Acute Care Lab [address] Lab (1st floor, no room number) [place] [address] * (ABNORMAL) Basic metabolic panel (2024 6:07 PM [facility]LO[facility] SANDER) [facility] Sodium 133(L) 135 - 145 mmol/L 2024 6:55 PM [facility] LABORATORY Potassium 4.4 3.4 - 5.3 mmol/L 2024 6:55 PM [facility] LABORATORY Chloride 97(L) 98 - 107 mmol/L 2024 6:55 PM [facility] LABORATORY Carbon Dioxide (CO2) 27 22 - 29 mmol/L 2024 6:55 PM [facility] LABORATORY Anion Gap 9 7 - 15 mmol/L 2024 6:55 PM [facility] LABORATORY Urea Nitrogen 20.3 8.0 - 23.0 mg/dL 2024 6:55 PM [facility] LABORATORY Creatinine 1.20(H) 0.67 - 1.17 mg/dL 2024 6:55 PM [facility] LABORATORY GFR Estimate 62 >60 mL/min/1.7 3m2 2024 6:55 PM [facility] LABORATORY Comment:eGFR calculated 2020 CKD-EPI equation. Calcium 10.5(H) 8.8 - 10.4 mg/dL 2024 6:55 PM [facility] LABORATORY Glucose 221(H) 70 - 99 mg/dL 2024 6:55 PM [facility] LABORATORY Blood STRUCTURE OF LEFT UPPER LIMB / Unknown Venipuncture / Unknown 2024 6:07 PM [facility]ANDER 2024 6:12 PM [facility] SANDER us Sim Manzo MD LAB - BLOOD ORDERABLES F inal Result LABORATORY [facility] Acute Care Lab [address] Lab (1st floor, no room number) [place] [address], [facility] * EKG 12-lead, tracing only (2024 6:04 PM [facility]ANDER) [facility] Systolic Blood Pressure mmHg RADIOLOGY RESULTS Diastolic Blood Pressure mmHg RADIOLOGY RESULTS Ventricular Rate 91 BPM RAD IOLOGY RESULTS Atrial Rate 91 BPM RADIOLOG Y RESULTS NC Interval 162 ms RADIOLOG Y RESULTS QRS Duration 102 ms RADIOLO GY RESULTS QT 362 ms RADIOLOGY RESULTS QTc 445 ms RADIOLOGY RESULTS P [place] 23 degrees RADIOLOGY RESULTS R AXIS 52 degrees RADIOLOGY RESULTS T [place] -56 degrees RADIOLOGY RESULTS Interpretation ECG Sinus rhythm with occasional Premature ventricular complexes Cannot rule out Anterior infarct , age undetermined ST & T wave abnormality, consider inferior ischemia Abnormal ECG No previous ECGs available Confirmed by - EMERGENCY ROOM, PHYSICIAN ([id number]), editor managing newspaper DEBORAH GONZALEZ ([id number]) on 06/18/2024 6:48:35 AM Also confirmed by - EMERGENCY ROOM, PHYSICIAN ([id number]), editor managing newspaper DEBORAH GONZALEZ ([id number]) on 06/18/2024 6:48:48 AM RADIOLOGY RESULTS 2024 6:04 PM [facility]ER 06/18/2024 6:48 AM [facility]ER us Victor Manuel Encinas MD ECG ORDERABLES Edited Resul t - Final RADIOLOGY RESULTS from Last 3 Months Insurance [facility] MEDICARE ADVANTAGE [facility] MEDICARE ADVANTAGE Care Teams Head Of Merchandise Buying Relationship Specialty Start Date End Date System, Provider Not In PCP - General Clinic 06/17/24
--- OUTSIDE RECORDS SUMMARY | 2024-06-29 20:02 | XMS_ITS | Encounter Summary ---
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
--- OUTSIDE RECORDS SUMMARY | 2024-06-29 20:02 | XMS_ITS | Clinical Summary ---
Author Organization [facility] Address [address] [place] [address] Care Team Providers Care District Medical Examiner Name Role Phone Rosamaria Lane MD Unavailable [phone] [facility], [place] Unavailable Unavailable Allergies Active Allergy Reactions [...] long-term current use of insulin (HCC) by [facility]Non-Drug ; Combo Route) route once daily. Accu-chek Fastclix. 100 each 3 1 Active pen needle, diabetic (BD INSULIN PEN NEEDLE UF) 31 gauge x 5/16 needleIndications :Type 2 diabetes mellitus with stage 3a chronic kidney disease, with long-term current use of insulin (HCC) by [facility].(Non-Drug ; Combo Route) route once daily. 100 [...] (arteriosclerotic cardiovascular disease) 03/01/2011 Overview (02/26/2012): *06/24/2002- [place]. Balloon angioplasty and stenting of the occluded Cx/OM artery using a 2.5x15mm balloon followed by 2.21l98gy B Velocity stent. *08/10/2002- Angiogram complete. 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 Not on file Not on file Not on file Last Filed Vital Signs Vital Sign Reading Time Taken Comments Blood Pressure 112/74 10/22/2022 1:14 PM CDT Pulse 62 12/03/2019 10:58 AM CDT Temperature 36.4 C (97.6 F) 02/26/2020 11:18 AM HEAD LIBRARIAN Respiratory Rate 14 10/01/2010 8:30 AM CDT [...] HGBA1C OP 6.8(H) 3.8 - 5.6 % [facility] Blood VENOUS BLOOD SPECIMEN / Unknown 01/26/2021 1:32 PM CDT Nargis Contreras MD CHEMISTRY ORDERABLE Final Resu lt Performing Organization Address [facility]/ZIP Co de Phone Number [address] [address], [place] [phone] * (ABNORMAL) BASIC METAB PROFILE (01/26/2021 1:32 PM CDT) GLUCOSE CASUAL OP 100.0(H) 70.0 - 99.0 mg/dL [facility] BUN 16.0 7.0 - 18.0 mg/dL [facility] CREATININE 1.33(H) 0.60 - 1.30 mg/dL [facility] CALCIUM 9.3 8.5 - 10.1 mg/dL [facility] SODIUM 139.0 136.0 - 145.0 mmol/L [facility] POTASSIUM 4.2 3.5 - 5.1 mmol/L [facility] CHLORIDE 102.0 98.0 - 107.0 mmol/L [facility] CO2 26.1 21.0 - 32.0 mmol/L [facility] EST GFR (MDRD) 52.7 [facility] Comment: Calculated GFR for the patient [...] Contreras MD CHEMISTRY ORDERABLE Final Resu lt [address] [place] [address], * HEP C ANTIBODY (01/02/2017 11:09 AM CDT) Hepatitis C Antibody Non-Reacti ve Non-Reacti ve 01/03/2017 11:[address] [facility] Blood VENOUS BLOOD SPECIMEN / Unknown 01/02/2017 11:09 AM CDT 01/03/2017 10:52 AM CDT us Allan Wilder MD IMMUNOLOGY ORDERABLE Final Resul t [facility] [address] [place] [address] from Last 3 Months or Most Recently Relevant to Health Maintenance Insurance [facility] MEDICARE ADVANTAGE MEDICARE PART A & B [place] [id number] [employer] MEDICARE ADVANTAGE Advance Directives For more information, please contact: [phone] Documents on File Type Date Recorded Patient Steak Tenderizer Machine Expl anation HCD - Complete 10/28/2016 6:51 AM Care Teams District Medical Examiner Relationship Specialty Start Date End Date Rosamaria Lane MD Consulting Physician Sleep Medicine 09/14/19 Shweta Pedro 09/26/20
[2024-06-29 20:03] VITALS: BP 122/68; PULSE 90; RESP 16; TEMP 37.4
--- OUTSIDE RECORDS SUMMARY | 2024-06-29 20:03 | XMS_ITS | Clinical Summary ---
Author Organization [facility] Address [address] , [address] [place] [address] Phone Care Team Providers Care Egg Tester Name Role Phone 3CareTeamCoordinator, 3CareTeamCoordinator Unava ilable Unavailable Conditions or Problems Problem Name Problem Code Onset Date Status Entry Date Provider Comment Standard Description Annotate Mild cognitive impairment 107780904 (SNOMED CT) Active 09/08 Summer Jamil PhD Mild neurocognitive disorder Spinal stenosis of lumbar region 56217853 (SNOMED CT) Active 11/07 Nellie Connelly MD Spinal stenosis of lumbar region Tremor, essential 488487511 (SNOMED CT) Active 11/07 Nellie Connelly MD Essential tremor Peripheral neuropathy 195831739 (SNOMED CT) Active 12/12 Beltran Rosenberg MD Peripheral nerve disease Gait imbalance 78573095 (SNOMED CT) Active 05/05 Beltran Rosenberg MD Abnormal gait Memory problems R41.3 (ICD-10-CM) Active 05/05 Beltran Rosenberg MD Other amnesia Medications Medication Instructions Start Date Stop Date Generic Name NDC Provider ARICEPT 5 MG TABS Take 1 tab by mouth once a day x1 month, then 10 mg daily thereafter 8 donepezil [id number] Bianca Ybarra PA-C TRESIBA FLEXTOUCH 100 UNIT/ML SOPN insulin degludec [id number] Bianca Ybarra PA-C TAMSULOSIN HCL 0.4 MG CAPS tamsulosin 30621622685 Bianca Ybarra PA-C SIMVASTATIN 10 MG TABS simvastatin 02192053780 Bianca Mehlhaus PA-C ASPIRIN LOW DOSE 81 MG TBEC TAKE 1 TABLET BY MOUTH DAILY aspirin 32916239128 Bianca MOON-Zeke METFORMIN HCL ER 500 MG [id number] metformin (glucophage xr) [id number] Bianca Ybarra PA-C GABAPENTIN 300 MG CAPS Take 1 po BID 1 gabapentin [id number] Nellie Connelly MD Medications Administered No information available. Allergies, Adverse Reactions, Alerts Allergy Name Reaction Description Start Date Severity Statu s Provider OXYCODONE Critical Active Bianca rizzoaus PA-C PENICILLIN Critical Active [facility] Results Date Name Value [...] Appointment 10:30 AM Nellie holland MD, [address], [address], [place], [address], Pending order Follow up Pending order Patient [...] Name Date Entry Date ORDERS Patient Instructions CPT-25564 No Charge CPT-20548 Npsy Interview w/Provider - 1st hour 2023 CPT-49100 Npsy Interp/Rpt by Provider - 1st hour 04/09/21 CPT-46241 Npsy Interp/Rpt by Provider - 2 hours 07/17/21 CPT-48091 Npsy Test by Tech (2+ Tests) - 1st 30 min CPT-11766 Npsy Test by Tech (2+ Tests) - 1.5 hours ORDERS Neuropsychology Evaluation 2 ORDERS Follow up after testing 2022 CPT-95307 MRI Lumbar W/O [id number] MRI-Lumbar W/O ORDERS Obtain outside records 11/07 ORDERS [facility] Joey Therapy 11/07 CPT-69462 Nerve Conduction 7-8 studies CPT-46774 EMG with NCS (5+ muscles) - 1 limb 12/12 CPT-22173 EMG with NCS (4 or fewer muscles) - 1 johnson b [id number] MRI-Brain W/O ORDERS Vitamin B12 ORDERS Vitamin B1 (Thiamine) 05/05 ORDERS TSH CPT-75663 MRI Brain W/O ORDERS Neuropsychology Evaluation 2 Vital Signs No information available. Immunizations No information available. Advance Directives No information available.
== END 2024-06-29 20:07 | disposition home or self-care (01) ==
LOC: ED 20:01
PROVIDERS: Emergency Provider Emergency Medicine; PCP Family Medicine
DX: T83.84XA Pain due to genitourinary prosthetic devices, implants and grafts, initial encounter (principal)
CPT/HCPCS: 99283

== ENCOUNTER 2024-07-06 13:30 | Outpatient (CLI) | payer OTHER, SELFPAY | END 2024-07-06 13:31 | disposition home or self-care (01) | LOC: NFLDREF 07-07 12:03 | PROVIDERS: PCP Family Medicine; Referring Provider Family Medicine; Visit Provider Family Medicine | DX: N18.9 Chronic kidney disease, unspecified (principal); E11.42 Type 2 diabetes mellitus with diabetic polyneuropathy; R33.8 Other retention of urine; G31.84 Mild cognitive impairment of uncertain or unknown etiology | CPT/HCPCS: 82043; 82570; 87086 ==

== ENCOUNTER 2024-08-16 10:31 | Outpatient (CLI) | payer OTHER, SELFPAY | END 2024-08-16 10:32 | disposition home or self-care (01) | LOC: NFLDREF 08-19 23:20 | PROVIDERS: PCP Family Medicine; Referring Provider Family Medicine; Visit Provider Physician Assistant Medical | DX: M54.9 Dorsalgia, unspecified (principal) | CPT/HCPCS: 87086 ==

== ENCOUNTER 2024-09-23 13:51 | Outpatient (CLI) | payer OTHER, SELFPAY | END 2024-09-23 13:52 | disposition home or self-care (01) | LOC: NFLDREF 09-24 13:26 | PROVIDERS: PCP Family Medicine; Referring Provider Family Medicine; Visit Provider Nurse Practitioner Family | DX: N40.1 Benign prostatic hyperplasia with lower urinary tract symptoms (principal); R31.9 Hematuria, unspecified; E11.42 Type 2 diabetes mellitus with diabetic polyneuropathy; Z79.4 Long term (current) use of insulin; Z12.5 Encounter for screening for malignant neoplasm of prostate | CPT/HCPCS: 87086; G0103 ==

== ENCOUNTER 2024-10-05 10:38 | Outpatient (CLI) | payer OTHER, SELFPAY ==
--- NOTE | 2024-10-05 11:00 | CRLHL7_ITS ---
For Patients: As a result of the Century Cures Act, medical imaging exams and procedure reports are released immediately into your electronic medical record. You may view this report before your referring provider. If you have questions, please contact your health care provider. INDICATION: MALIGNANT NEOPLASM OF BLADDER. TECHNIQUE: CT abdomen and pelvis urogram without and with 100 cc Isovue 370 contrast. Contrast images were obtained in the nephrographic and delayed phases. COMPARISON: None. FINDINGS: KIDNEYS: The unenhanced images demonstrate no kidney or ureteral stones. The kidneys are normal in caliber and demonstrate normal uptake and excretion of IV contrast. No solid masses. Sub cm cyst within the right kidney is present. The renal collecting systems and ureters are symmetrical, normal in caliber, and without evidence of mass or filling defect. URINARY BLADDER: Lobular heterogeneous bladder wall thickening present on the left measuring up to 2.1 cm. Trabeculation of the posterior bladder wall noted. OTHER: No pleural effusion. No intrahepatic mass. Gallbladder absent. No biliary obstruction. Pancreas normal. Calcified splenic granulomas. No splenomegaly. Normal adrenal glands. Atherosclerotic changes. Appendix normal. No bowel obstruction or free air. No free fluid. No adenopathy. Grade 1 degenerative spondylolisthesis of L4 on L5. Chronic wedging L1. IMPRESSION: 1. Heterogeneous lobular left bladder wall thickening representing known bladder malignancy. 2. No hydronephrosis or hydroureter. No metastatic disease. Please note that all CT scans at this facility use dose modulation, iterative reconstruction, and/or weight-based dosing when appropriate to reduce radiation dose to as low as reasonably achievable. Dictated by Neymar Vegas MD @ 10/05/2024 12:58:13 PM (Electronically Signed)
[2024-10-05 11:25] LABS: Creatinine* 1.1 mg/dL (0.5-1.5); Estimated Glomerular Filt Rate 69 ml/min
--- OUTSIDE RECORDS SUMMARY | 2024-10-05 12:30 | XMS_ITS | Data Portability ---
Author Organization [place] - [facility] gy, [facility] Address [address] [place] [address] Care Team Providers Care [employer] Member Name Role Phone BALJINDER BLACK Primary Care Provider Assessment No assessment recorded. Plan of Treatment Reminders Order Date Submit Date Provider Last Modified By Organization Details Last Modified Time Details Appointments None recorded . Lab urinalys is, dipstick 2024 025 [email or web address] [facility], [address], [address], [place], [address], Ph 5 15:56:04 urinalys is, dipstick 2024 025 [email or web address] [facility], [address], [place], [address], 5 17:05:57 Referral None recorded . Procedures bladder scan (PROC) 2024 025 nikkyOpenSynergymelany [facility], [address], [address], [place], [address], Ph 5 15:56:04 Surgeries None recorded . Imaging None recorded . Medication Orders Cipro 500 mg tablet 2024 025 [email or web address] [id number], [address], [place], [address], 15:56:04 Patient TargetsNo targets recorded. Patient Instructions Encounter Date Encounter Id Patient Instructions Last Modified By Organization Details Last Modified Time 07/13/2024 [id number] Discussion of BP H and treatment options I alex him a diagram showing him the anatomy of the prostate with relation to the urethra and the bladder. We talked about the connection between an enlarged prostate and the PSA exam. I then went over all of the treatment options for BPH with obstruction. We talked about medications, such as tamsulosin and finasteride, we also went over the side effects, risks and benefits. We talked about the size of the prostate and I alex him a diagram of the anatomy along with the treatment options (see scanned sheet). We talked about the necessity for procedure if there is recurrent infection, incomplete emptying, hydronephrosis, etc. We also talked about the various procedural options including simple prostatectomy, TURP procedure, greenlight laser or HOLEP procedure, Rezum, Urolift, Aquablation, PAE. iTIND, Optilume BPH. We talked about the complicated nature of symptoms and that patients with BPH can have both obstructive and irritative symptoms. I explained that not all of the symptoms can be resolved with treatment. I wanted to make sure that the patient had realistic about the various treatment options including the possibility of seeking a second opinion. [email or web address] Not available 07/13/2024 09:12:46 baster hand-ref. [facility]- urinary retention pt does not have a cath Here is with his , Ariana there are not quite sure of why Review and interpretation of notes provided Was seen in the emergency room 06/18/2024, general weakness Past medical history of hypertension, hyperlipidemia, CA and type 2 diabetes Spinal cord compression, peripheral apathy, SELMA, balance disorder was sent home that day with a catheter, catheter was removed Not on any medications for his prostate Was told he has an enlarged prostate but he indicates that he is not having a major problems urinating. UA - negative MYRTLE - did not feel enlarged, no nodules or asymmetry PVR 168, question of incomplete emptying We talked about the possibility of having a neurogenic bladder (diabetes) Patient does not claim to have any major urine problems with urination and does not feel as if he is not emptying his bladder. Will have him follow up follow up in 3-4 months To follow up 1st with nurse visit for both PSA LAB Draw and UROCUFF Procedure (full bladder) Note: Full bladder needed for the procedure in order to get accurate results. Then 7-[address] Patel to discuss results with TRUS volume study and Cystoscopy. [email or web address] Not available 07/13/2024 15:04:19 09/27/2024 [id number] baster hand-ref. [facility]- urinary retention pt does not have a cath Here is with his Ariana there are not quite sure of why Review and interpretation of notes provided Was seen in the emergency room 06/18/2024, general weakness Past medical history of hypertension, hyperlipidemia, CA and type 2 diabetes Spinal cord compression, peripheral apathy, SELMA, balance disorder was sent home that day with a catheter, catheter was removed later that day as his took him back to the ER and said that he would not tolerate a catheter. Not on any medications for his prostate Was told he has an enlarged prostate but he indicates that he is not having a major problems urinating. UA - negative MYRTLE - did not feel enlarged, no nodules or asymmetry PVR 168, question of incomplete emptying We talked about the possibility of having a neurogenic bladder (diabetes) Patient does not claim to have any major urine problems with urination and does not feel as if he is not emptying his bladder. Will have him follow up follow up in 3-4 months To follow up 1st with nurse visit for both PSA LAB Draw and UROCUFF Procedure (full bladder) Note: Full bladder needed for the procedure in order to get accurate results. Then 7-[address] Patel to discuss results with TRUS volume study and Cystoscopy. 09/27/2024 BPH with Obstruction, Dementia had some gross hematuria which resolved patient with his today, Ariana he does have some cognitive changes, and as a result, there has been some confusion with his care Cystoscopy with kissing lateral lobes, larger bladder, signs of long-term obstruction with cellules and diverticuli and grade 2-3 trabeculation Left lateral wall of bladder with papillary tumor with calcification consistent with bladder mass Patient with history of smoking, likely bladder cancer TRUS volume study: 41 to 42 cm prostate Patient told recent PSA within normal limits Discussion of bladder mass, likely bladder cancer, will need TURBT as outpatient Both patient and his had numerous questions and tend to be forgetful with medical planning I explained this is likely bladder cancer but we will need to take a sample and it is likely that he will need a catheter for several days post procedure for healing. I suspect he is already having some difficulties with urination and incomplete emptying. We discussed bladder cancer and how it has a high chance of recurrence and that we will need to be evaluated with pathology discussed after the biopsy. We discussed the importance of regular follow-up and that he will need to be seen every 3 months for the next 2 years for evaluation of bladder tumor recurrence. Will also order CT scan of the abdomen pelvis with and without IV contrast for further review of upper tracts Complicated decision making, BPH with obstruction, hematuria, bladder mass 1 hour, greater than 50% [id number], discussion of procedure, risk/benefits, follow-up, etc. [email or web address] Not available 09/27/2024 15:39:07 Reason for Referral None Reported. Results Created Date Observation Date Name Description Value Unit Range Abnormal Flag Note LastModifiedBy Organization Detail LastModifiedTime 07/27/19 25 07/26/2024 urina lysis , dipst ick Color-Status Yellow Not Available [facility] [place] [address], [address], 07/13/2024 14:12:59 07/27/19 25 07/26/2024 urina lysis , dipst ick pH-Status 6.5 Not Available [facility], [address], 07/13/2024 14:12:59 07/27/19 25 07/26/2024 urina lysis , dipst ick Nitrates-Sta tus negati ve Not Available [address], [place], [address], 07/13/2024 14:12:59 07/27/19 25 07/26/2024 urina lysis , dipst ick Blood-Status Trace Not Available [facility] [address] [place] [address] [place], [address], 07/13/2024 14:12:59 07/27/19 25 07/26/2024 urina lysis , dipst ick Leuko-Status Negati ve Not Available [facility] [address], [place], [address], 07/13/2024 14:12:59 09/28/19 25 09/27/2024 bladd er scan (PROC ) Volume (in mL) 182 Not Available [facility] [address], [place], [address], Ph 09/27/2024 15:10:55 09/28/19 25 09/27/2024 urina lysis , dipst ick GLU negati ve Not Available [facility] [address], [place], [address], Ph [phone] 09/27/2024 15:10:40 09/28/19 25 09/27/2024 urina lysis , dipst ick ION negati ve Not Available [facility] [address], [place], [address], Ph 09/27/2024 15:10:40 09/28/19 25 09/27/2024 urina lysis , dipst ick KET negati ve Not Available [facility] [address], [place], [address], Ph 09/27/2024 15:10:40 09/28/19 25 09/27/2024 urina lysis , dipst ick SG 1.020 Not Available [facility] [address], [place], [address], Ph 09/27/2024 15:10:40 09/28/19 25 09/27/2024 urina lysis , dipst ick BLO large Not Available [facility] [address], [place], [address], Ph [phone] 09/27/2024 15:10:40 09/28/19 25 09/27/2024 urina lysis , dipst ick pH 6.0 Not Available [place] [facility] [address], [place], [address], Ph 09/27/2024 15:10:40 09/28/19 25 09/27/2024 urina lysis , dipst ick PRO 30 mg/dL Not Available [facility] [address], [place], [address], Ph 09/27/2024 15:10:40 09/28/19 25 09/27/2024 urina lysis , dipst ick URO 0.2 Not Available [place] [facility] [address], [place], [address], Ph [phone] 09/27/2024 15:10:40 09/28/19 25 09/27/2024 urina lysis , dipst ick NIT Negati ve Not Available [facility] [address], [place], [address], Ph [phone] 09/27/2024 15:10:40 09/28/19 25 09/27/2024 urina lysis , dipst ick JAGDISH negati ve Not [place], [address], Ph [phone] 09/27/2024 15:10:40 Result Notes None recorded. Problems Name Problem SNOMED Code Status Onset Date Resolution Date Notes Provider Name and Address Organization Details Recorded Time Retention of urine 925907438 Active 2024 Farideh jaquez MD [address] [place] [address],[address] [place] [address], [address], [facility] 5 09:07:14 Benign prostatic hyperplasia with outflow obstruction 079631243 Active 2024 Farideh jaquez MD [address] [place] [address],[address] [place] [address], [address], [facility] 5 09:07:36 Problem Notes None recorded. Procedures Surgical History Date Name Laterality Status Provider Name and Address Organization Details Recorded Time 09/28/19 25 Cystoscopy- male completed Farideh Patel MD [address] [place] [address],[address], [address], [facility] 09/27/2024 15:36:08 09/28/19 25 COMPLEX VISIT completed Farideh Patel MD [address] [place] [address],[address], [address], [facility] 09/27/2024 13:42:35 09/28/19 25 TRUS- Volume size only completed Farideh Patel MD [address] [place] [address],[address], [address], [facility] 09/27/2024 14:54:51 09/28/19 25 [place] - TRUS Volume size only completed Farideh Patel MD [address] [place] [address],[address], [address], [facility] 09/27/2024 15:36:10 07/14/19 25 Bladder Scan completed Rivka Grossman [facility] 07/13/2024 14:12:55 Imaging Results None recorded. Procedure Notes None recorded. Medical Equipment None Reported. Allergies Allergen ID Allergen Name Allergen Category Reaction Reaction Severity Criticality Documentation Date Start Date Code Code System Note Provider Name and Address Organization Details Recorded Time 851726 acetamino phen / oxycodone medicatio n other Not available low 07/13/20242017 11946 3 RxNorm Patie nt state d he feels besi de himse lf (anxi ety type react ion) Patie nt state d he feels besi de himse lf (anxi ety type react ion) Rivka pérez [facility] 14:23:47 340239 Product containin g penicilli n (product) medicatio n Not available Not available Not available 07/13/20242013 55091 8001 SNOMED unrec ogniz ed react ion (text : *Unkn own - Child john Rxn, code: 07952 000) (from exter nal sourc e) Rivka pérez [facility] 14:23:50 Medications Name Sig Start Date Stop Date Status Note LastModified by Organization Details LastModified Time donepezil 5 mg tablet TAKE 1 TAB BY MOUTH ONCE A DAY X1 MONTH, THEN 10 MG DAILY THEREAFTE R active Not Available Not Available No t Available clindamycin HCl 300 mg capsule 300 MG ORALLY THREE TIMES A DAY FOR 7 DAYS 09/27 completed Not Available Not Available Not Available simvastatin 10 mg tablet TAKE 1 TABLET 10 MG ORALLY BEDTIME active Not Available Not Available No t Available Accu-Chek Softclix Lancets TEST 3 TIMES A DAY active Not Available Not Available No t Available sulfamethox azole 800 mg-trimetho prim 160 mg tablet 1 TAB ORALLY TWICE A DAY FOR 10 DAYS GFR 69 09/27 completed Not Available Not Available Not Available aspirin 81 mg tablet,sol yed release TAKE 1 TABLET BY MOUTH DAILY active Not Available Not Available No t Available tamsulosin 0.4 mg capsule TAKE 1 CAPSULE BY MOUTH EVERY DAY active Not Available Not Available No t Available Cipro 500 mg tablet Take 1 tablet by oral route, for post cystoscop y. 2024 active CThom pson, RN Not Available Not Available Not Available albuterol sulfate HFA 90 mcg/actuati on aerosol inhaler INHALE 2 PUFFS INTO THE LUNGS EVERY 6 HOURS NEEDED FOR SHORTNESS OF BREATH, WHEEZING OR COUGH. 09/27 completed Not Available Not Available Not Available metformin ER 500 mg tablet,exte nded release 24 hr 1000 MG (2 X 500 MG) ORALLY TWICE A DAY active Not Available Not Available No t Available cyclobenzap rine 5 mg tablet 5 MG ORALLY THREE TIMES A DAY NEEDED FOR MUSCLE SPASM 09/27 completed Not Available Not Available Not Available BD Ultra-Fine Short Pen Needle 31 gauge x 08/27 USE TWICE DAILY active Not Available Not Available No t Available Tresiba FlexTouch U-100 insulin 100 unit/mL (3 mL) subcutaneou s pen INJECT 10 UNITS IN THE MORNING AND 35 UNITS IN THE EVENING SUBCUTANE OUSLY DAILY active Not Available Not Available No t Available Accu-Chek Guide test strips USE TO TEST BLOOD SUGAR THREE TIMES A DAY active Not Available Not Available No t Available Ozempic 0.25 mg or 0.5 mg (2 mg/3 mL) subcutaneou s pen injector INJECT 0.25 MG (0.368 ML) SUBCUTANE OUSLY EVERY WEEK FOR 4 WEEKS FOR 4 WEEKS 09/27 completed Not Available Not Available Not Available Vitals Date Recorded Body height Body mass index (BMI) Body weight Provider Name and Address Organization Details Last Updated DateTime 07/13/2024 177.8 cm 30.1 kg/m2 [address] [facility] 07/13/2024 14:23:43 Date Recorded Body height Provider Name an d Address Organization Details Last Updated DateTime 09/27/2024 177.[address] [facility] 09/27/2024 14:49:10 Social History Question Answer Notes LastModified by Organizat ion Details LastModified Time Tobacco Smoking Status Former Smoker Rivka Grossman [facility] 07/13/2024 14:24:49 Do You Have An Advance Directive? Yes [email or web address] Information not available 09/27/2024 What Is Your Level Of Caffeine Consumption? Moderate Information not available 07/13/2024 When Did You Quit Smoking? 16+yearssince lastcigarette [email or web address] Information not available 09/27/2024 Do You Have A Medical Power Of Refinisher? Yes [email or web address] Information not available 09/27/2024 What Was The Date Of Your Most Recent Tobacco Screening? 09/27/2024 [email or web address] Information not available 09/27/2024 Have You Ever Been Counseled For Unhealthy Alcohol Use? No [email or web address] Information not available 09/27/2024 How Much Tobacco Do You Smoke? No Information not available 09/27/2024 How Many Days In The Past Year Have You Consumed 5 Or More Drinks? 0 [email or web address] Information not available 09/27/2024 Sex: Male Functional Status Question Answer Note LastModified by Organizat ion Details LastModified Time Do you use any illicit or recreational drugs? No [email or web address] Information not available 09/27/2024 Do you or have you ever used any other forms of tobacco or nicotine? No [email or web address] Information not available 09/27/2024 What is your level of alcohol consumption? Moderate [email or web address] Information not available 09/27/2024 Mental Status None recorded. Family History Relationship Description Onset Age of this Age Resolved Age Notes LastModified by Organization Details LastModified Time Mother History of malignant neoplasm Unknow n Not available 07/13/2024 14:24:26 Medical History Condition Response Other N High Blood Pressure N Kidney Stones N Depression N Lung Disease N GERD/Acid Reflux Y Sexually Transmitted Infection N Cancer N High Cholesterol N Diabetes Y Bleeding Disorder N Heart Disease Y Immunizations Vaccine Type Date Status Note Provider Nam e and Address Organization Details Recorded Time Influenza, split virus, trivalent, preservative 9 completed Not Available [facility] 09/27/2024 14:33:54 pneumococcal polysaccharide PPV23 9 completed Not Available [facility] 09/27/2024 14:33:54 Tdap 0 completed Not Available [facility] 09/27/2024 14:33:54 Influenza, split virus, trivalent, preservative 3 completed Not Available [facility] 09/27/2024 14:33:54 Influenza, split virus, trivalent, preservative 2 completed Not Available [facility] 09/27/2024 14:33:54 Influenza, high-dose, trivalent, PF 4 completed Not Available [facility] 09/27/2024 14:33:54 pneumococcal polysaccharide PPV23 5 completed Not Available [facility] 09/27/2024 14:33:54 Influenza, high-dose, trivalent, PF 5 completed Not Available [facility] 09/27/2024 14:33:54 Pneumococcal conjugate PCV 13 6 completed Not Available [facility] 09/27/2024 14:33:54 Influenza, high-dose, trivalent, PF 6 completed Not Available [facility] 09/27/2024 14:33:54 Influenza, high-dose, trivalent, PF 7 completed Not Available [facility] 09/27/2024 14:33:54 Influenza, high-dose, trivalent, PF 8 completed Not Available [facility] 09/27/2024 14:33:54 zoster recombinant 8 completed Not Available [facility] 09/27/2024 14:33:54 zoster recombinant 9 completed Not Available [facility] 09/27/2024 14:33:54 zoster recombinant 9 completed Not Available [facility] 07/13/2024 14:08:36 Influenza, high-dose, trivalent, PF 9 completed Not Available [facility] 09/27/2024 14:33:54 Tdap 0 completed Not Available [facility] 09/27/2024 14:33:54 Influenza, split virus, trivalent, PF 0 completed Not Available [facility] 09/27/2024 14:33:54 COVID-19, mRNA, LNP-S, PF, 30 mcg/0.3 mL dose 1 completed Not Available [facility] 09/27/2024 14:33:54 COVID-19, mRNA, LNP-S, PF, 30 mcg/0.3 mL dose 1 completed Not Available [facility] 09/27/2024 14:33:54 pneumococcal polysaccharide PPV23 5 completed Not Available [facility] 07/13/2024 14:08:36 Influenza, adjuvanted, quadrivalent, PF 1 completed Not Available [facility] 09/27/2024 14:33:54 COVID-19, mRNA, LNP-S, PF, 30 mcg/0.3 mL dose 1 completed Not Available [facility] 09/27/2024 14:33:54 COVID-19, mRNA, LNP-S, PF, 30 mcg/0.3 mL dose, concepcion-sucrose 2 completed Not Available [facility] 09/27/2024 14:33:54 Influenza, high-dose, quadrivalent, PF 2 completed Not Available [facility] 09/27/2024 14:33:54 Influenza, high-dose, quadrivalent, PF 3 completed Not Available [facility] 09/27/2024 14:33:54 COVID-19, mRNA, LNP-S, PF, 50 mcg/0.5 mL 3 completed Not Available [facility] 09/27/2024 14:33:54 RSV, recombinant, protein subunit RSVpreF, adjuvant reconstituted, 0.5 mL, PF 3 completed Not Available [facility] 09/27/2024 14:33:54 Influenza, high-dose, trivalent, PF 4 completed Not Available [facility] 09/27/2024 14:33:54 COVID-19, mRNA, LNP-S, PF, 50 mcg/0.5 mL 4 completed Not Available [facility] 09/27/2024 14:33:54 Past Encounters Encounter ID Performer Location Encounter Start Date Encounter Closed Date Diagnosis/Indication Diagnosis SNOMED-CT Code Diagnosis ICD10 Code Diagnosis Note [id number] MD VEENA [facility] [address] [address],[address] [place] [address] 07/13/2024 14:03:03 07/16/2024 12:15:47 Benign prostatic hyperplasia with outflow obstruction 266614286 N40.1 Retention of urine 76886 4002 R33.9 [id number] [facility]el [facility] [address] [facility],[address] [facility] [place] [address] 09/27/2024 14:32:44 09/27/2024 15:39:25 Benign prostatic hyperplasia with outflow obstruction 458621344 N40.1 Retention of urine 95165 4002 R33.9 Health Concerns Section Related Observation LastModified by Organization Wilian rain LastModified Time None Recorded Concern Status LastModified by Organization Details LastModified Time None Recorded Advance Directives Directive Y: Payers Insurance Date Sequence Insurance Name Policy Number Policy Jeffries Covered Member ID Jeffries Member ID Guarantor Name 09/27/2024 1 [employer] (MEDICARE REPLACEMENT/A DVANTAGE - PPO) [id number] Neymar Pruett [id number] Neymar Pruett Notes Date Note Type Note Provider Name and Address Organization Details Recorded Time 07/13/2024 text/html baster hand-ref. [facility]- urinary retention - pt does not have a cath no major changes no fevers, chills, night sweats review of past medical history discussed medications and general health Rivka pérez [facility] 07/26/2024 17:06:38 09/27/2024 text/html Has been doing well recently no major changes no fevers, chills, night sweats review of past medical history discussed medications and general health Farideh Patel MD [address] [place] [address],[address], [place], [address], [facility] 09/27/2024 15:39:20
--- OUTSIDE RECORDS SUMMARY | 2024-10-05 12:30 | XMS_ITS | Clinical Summary ---
Author Organization [facility] Address [address] [place] [address] Care Team Providers Care Ballpoint Pen Cartridge Tester Name Role Phone Rosamraia Lane MD Unavailable [phone] [facility], [place] Unavailable Unavailable Allergies Active Allergy [...] long-term current use of insulin (HCC) by [facility].(Non-Drug ; Combo Route) route once daily. Accu-chek Fastclix. 100 each 3 1 Active pen needle, diabetic (BD INSULIN PEN NEEDLE UF) 31 gauge x 5/16 needleIndications :Type 2 diabetes mellitus with stage 3a chronic kidney disease, with long-term current use of insulin (HCC) by [facility].(Non-Drug ; Combo Route) route once daily. 100 [...] (arteriosclerotic cardiovascular disease) 03/01/2011 Overview (02/26/2012): *06/24/2002- [place]. Balloon angioplasty and stenting of the occluded Cx/OM artery using a 2.5x15mm balloon followed by 2.60q61ca B Velocity stent. *08/10/2002- Angiogram complete. No intervention. Patient to start EECP. 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 Respiratory Rate 14 10/01/2010 8:30 AM CDT [...] 02/08/2020, 01/18/2019, 01/05/2018, Additional history exists HgbA1C 07/27/2021 01/26/2021, 05/15, 09/27/2019, Additional history exists Creatinine 04/18/2023 04/18/2022, 03/15, 01/26/2021, Additional history exists COVID-19 Vaccine ( season) 2023 02/05/2023, 02/05/2022, 07/30/2021, Additional history exists Influenza Vaccine (Season Ended) 2024 12/08/2022, 12/09/2021, 01/04/2021, Additional history exists Colonoscopy 04/01/2026 04/01/2016 Adult Tetanus Booster 09/01/2029 09/02/2019, 010 Pneumococcal 50+ Years Completed 6, 06/02/2014, 01/27/2009 Hepatitis C Screening Completed 01/02/2017 Zoster Vaccine Completed 06/03/2018, 05/16, 01/29/2018 RSV Vaccines Completed 03/05/2023 Meningococcal B Vaccine Aged Out No l onger eligible based [...] HGBA1C OP 6.8(H) 3.8 - 5.6 % [facility] Blood VENOUS BLOOD SPECIMEN / Unknown 01/26/2021 1:32 PM CDT Nargis Contreras MD CHEMISTRY ORDERABLE Final Resu lt [facility] [address] [address], * (ABNORMAL) BASIC METAB PROFILE (01/26/2021 1:32 PM CDT) GLUCOSE CASUAL OP 100.0(H) 70.0 - 99.0 mg/dL [facility] BUN 16.0 7.0 - 18.0 mg/dL [facility] CREATININE 1.33(H) 0.60 - 1.30 mg/dL [facility] CALCIUM 9.3 8.5 - 10.1 mg/dL [facility] SODIUM 139.0 136.0 - 145.0 mmol/L [facility] POTASSIUM 4.2 3.5 - 5.1 mmol/L [facility] CHLORIDE 102.0 98.0 - 107.0 mmol/L [facility] CO2 26.1 21.0 - 32.0 mmol/L [facility] EST GFR (MDRD) 52.7 [facility] Comment: Calculated GFR for the [...] Contreras MD CHEMISTRY ORDERABLE Final Resu lt [facility] [address] [facility] [address] [place] [address], * HEP C ANTIBODY (01/02/2017 11:09 AM CDT) Hepatitis C Antibody Non-Reacti ve Non-Reacti ve 01/03/2017 11:52 AM CDT [facility] Blood VENOUS BLOOD SPECIMEN / Unknown 01/02/2017 11:09 AM CDT 01/03/2017 10:52 AM CDT Allan Wilder MD IMMUNOLOGY ORDERABLE Final Resul t [facility] [address] [place] [address] from Last 3 Months or Most Recently Relevant to Health Maintenance Insurance [facility] MEDICARE ADVANTAGE [id number] [facility] [place] [address] MEDICARE PART A & B [employer] MEDICARE ADVANTAGE Advance Directives For more information, please contact: [phone] Documents on File Type Date Recorded Patient Metal Buffer Expl anation HCD - Complete 10/28/2016 6:51 AM Care Teams Ballpoint Pen Cartridge Tester Relationship Specialty Start Date End Date Rosamaria Lane MD Consulting Physician Sleep Medicine 09/14/19 [place] Pedro 09/26/20
--- OUTSIDE RECORDS SUMMARY | 2024-10-05 12:30 | XMS_ITS | Clinical Summary ---
Author Organization [facility] Address [address] , [address] [place] [address] Phone Care Team Providers Care Trailer Driver Name Role Phone Records, Outside Unavailable Unavailable Conditions or Problems Problem Name Problem Code Onset Date Status Entry Date Provider Comment Standard Description Annotate Mild cognitive impairment 861051886 (SNOMED CT) Active 09/08 Summer Jamil PhD Mild neurocognitive disorder Spinal stenosis of lumbar region 22805602 (SNOMED CT) Active 11/07 Nellie Connelly MD Spinal stenosis of lumbar region Tremor, essential 311981794 (SNOMED CT) Active 11/07 Nellie Connelly MD Essential tremor Peripheral neuropathy 886629644 (SNOMED CT) Active 12/12 Beltran Rosenberg MD Peripheral nerve disease Gait imbalance 92791557 (SNOMED CT) Active 05/05 Beltran Rosenberg MD Abnormal gait Memory problems R41.3 (ICD-10-CM) Active 05/05 Beltran Rosenberg MD Other amnesia Medications Medication Instructions Start Date Stop Date Generic Name NDC Provider ARICEPT 5 MG TABS Take 1 tab by mouth once a day x1 month, then 10 mg daily thereafter 8 donepezil [id number] Bianca Ybarra PA-C TRESIBA FLEXTOUCH 100 UNIT/ML SOPN insulin degludec [id number] Bianca Ybarra PA-C TAMSULOSIN HCL 0.4 MG CAPS tamsulosin [id number] Bianca Ybarra PA-C SIMVASTATIN 10 MG TABS simvastatin [id number] Bianca Ybarra PA-C ASPIRIN LOW DOSE 81 MG TBEC TAKE 1 TABLET BY MOUTH DAILY aspirin [id number] Bianca Ybarra CELSAZeke METFORMIN HCL ER 500 MG [id number] metformin (glucophage xr) [id number] Bianca Ybarra PA-C GABAPENTIN 300 MG CAPS Take 1 po BID 1 gabapentin [id number] Nellie Connelly MD Medications Administered No information available. Allergies, Adverse Reactions, Alerts Allergy Name Reaction Description Start Date Severity Statu s Provider OXYCODONE Critical Active Bianca rizzoaus PA-C PENICILLIN Critical Active [facility] Results Date Name Value [...] Plan of Care Type Date Detail Appointment 10:00 AM Bianca rausch PA-C, [address], [address], [place], [address], Pending order Follow up Pending order Patient Instruct ions Pending order Follow up Pending order Neuropsychology Evaluation Pending order Follow up after testing Pending order MRI-Lumbar W/O Pending order [facility] Joey Enamorado huyenkate Pending order Obtain outside r ecords Pending order MRI-Brain W/O Pending order TSH Pending order Vitamin B1 (Thia mine) Pending order Vitamin B12 Pending order Neuropsychology Evaluation Procedures Code Procedure Name Date Entry Date ORDERS Patient Instructions CPT-29356 No Charge CPT-59433 Npsy Interview w/Provider - 1st hour 2023 CPT-48444 Npsy Interp/Rpt by Provider - 1st hour 04/09/21 CPT-03476 Npsy Interp/Rpt by Provider - 2 hours 07/17/21 CPT-84660 Npsy Test by Tech (2+ Tests) - 1st 30 min CPT-73670 Npsy Test by Tech (2+ Tests) - 1.5 hours ORDERS Neuropsychology Evaluation 2 ORDERS Follow up after testing 2022 CPT-30420 MRI Lumbar W/O [id number] MRI-Lumbar W/O ORDERS Obtain outside records 11/07 ORDERS [facility] Joey Therapy 11/07 CPT-53240 Nerve Conduction 7-8 studies CPT-48366 EMG with NCS (5+ muscles) - 1 limb 12/12 CPT-01009 EMG with NCS (4 or fewer muscles) - 1 johnson b [id number] MRI-Brain W/O ORDERS Vitamin B12 ORDERS Vitamin B1 (Thiamine) 05/05 ORDERS TSH CPT-47035 MRI Brain W/O ORDERS Neuropsychology Evaluation 2 Vital Signs No information available. Immunizations No information available. Advance Directives No information available.
--- OUTSIDE RECORDS SUMMARY | 2024-10-05 12:30 | XMS_ITS | Clinical Summary ---
Author Organization [facility] Address [address] [place] [address] Care Team Providers Care Shipping Inspector Name Role Phone Yumiko Vidal MD Unavailable Unavailable Yumiko Vidal MD Unavailable Unavailable Esther Arboleda MD Primary Care Provider [phone] Allergies Active Allergy Reactions Criticality Noted Date [...] Shortness of breath 12/08/2006 ASHD S/P INFERIOR ID + RCA STENT 06/14 BEREKET CHRISTINEO RIAL 12/08/2006 Pure hypercholesterolemia 12/08/2006 EXCESS WEIGHT 12/08/2006 Encounters Date Type Department Care Team Description 08/24/2024 2:00 PM CDT Office Visit [facility] [address] [place] [address] Kevin Galloway, DPM Follow Up (Diabetic foot check ) 08/24/2024 Travel 07/26/2024 11:48 AM CDT - 07/26/2024 11:59 PM CDT Hospital Encounter [facility] [place] [address] [place] [address] Esther Hernández, OT 07/26/2024 Travel from Last 3 Months Immunizations Immunization Administration Dates Next Due Influenza [...] on file Legal Sex Male 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 Gender Identity Not on file Sexual Orientation Not on file Obstetrics History Last Filed Vital Signs Vital Sign Reading Time Taken Comments Blood Pressure 123/77 08/24/2024 1:55 PM CDT tow er Pulse 82 08/24/2024 1:55 PM CDT Temperature 36.7 C (98.1 F) 11/18/2022 1:31 PM CDT Respiratory Rate 14 06/29/2021 11:27 AM CDT Oxygen Saturation 96% 04/29/2023 12:56 PM SENIOR INFORMATICA DEVELOPER Inhaled Oxygen Concentration - - Weight 102.1 kg (225 lb) 08/24/2024 1:55 PM CDT Height 182.9 cm (6') 08/12/2023 8:47 AM CDT Body Mass Index 30.52 08/12/2023 8:47 AM CDT Plan of Treatment Health Maintenance Due Date Last Done Comments Depression screening for age 12+ 1957 Hepatitis C screening for age 18-79 06/16/1965 Medicare Wellness for age 65+ 06/16/2012 RSV vaccine for adults or (1 - 1-dose 75+ series) 06/16/2022 COVID-19 vaccine series ( season) 2024 12/24/2023, 02/05/2023, 02/05/2022, Additional history exists BMI (ht and wt on same day) for age 18+ 08/11/2024 08/12/2023, 04/10/2022, 01/31/2022 Influenza Vaccine (Season Ended) 2024 01/04/2021, 01/04/2021, 12/31/2019, Additional history exists Tetanus booster 09/01/2029 09/02/2019, 08/16/2009 Pneumococcal series for age 50+ Completed 01/15/2016, 06/02/2014, 05/23/2014, Additional history exists Zoster (shingles) series for age 50+ Completed 06/03/2018, 05/25/2018, 01/29/2018 Tdap Completed 09/02/2019, 08/16/2009 Hepatitis B series for 19+ Aged Out N o longer eligible based on patient's age to complete this topic Insurance [employer] CHOICE PPO [place] MEDICARE PART A HB ONLY Care Teams Shipping Inspector Relationship Specialty Start Date End Date Esther Arboleda MD [address] [place] [address] PCP - General 01/16/22 Yumiko Vidal MD Endocrinology 01/25/14 Yumiko Vidal MD Endocrinology 01/25/14
--- OUTSIDE RECORDS SUMMARY | 2024-10-05 12:30 | XMS_ITS | Clinical Summary ---
Author Organization [facility] Address [address] [place] [address] Care Team Providers Care Graphic Design Assistant Name Role Phone System, Provider Not In [...] breath, wheezing or cough. 18 g Active Social History Tobacco Use Types Packs/Day Years Used Date Smoking Tobacco: Never Assessed Sex and Gender Information Value Date Recorded Sex Assigned at Not on file Legal Sex Male 8:07 PM CDT Gender Identity Not on file Sexual Orientation Not on file Last Filed Vital Signs Vital Sign Reading Time Taken Comments Blood Pressure 134/77 2024 8:30 PM STOCK CAR DRIVER Pulse 93 2024 8:30 PM STOCK CAR DRIVER Temperature 36.8 C (98.3 F) 2024 6:04 PM STOCK CAR DRIVER Respiratory Rate 18 2024 9:26 PM STOCK CAR DRIVER Oxygen Saturation 95% 2024 8:16 PM STOCK CAR DRIVER Inhaled Oxygen Concentration - - Weight 100.5 kg (221 lb 8 oz) 2024 6:04 PM STOCK CAR DRIVER Height 182.9 cm (6') 2024 6:04 PM STOCK CAR DRIVER Body Mass Index 30.04 2024 6:04 PM STOCK CAR DRIVER Plan of Treatment Health Maintenance Due Date Last Done Comments ADVANCE CARE PLANNING 1945 ANNUAL REVIEW OF HM ORDERS 1945 LIPID 1987 FALL RISK ASSESSMENT 06/16/2012 MEDICARE ANNUAL WELLNESS VISIT 02/07/2021 02/08/2020, 01/18/2019, 01/12/2018, Additional history exists RSV VACCINE (1 - 1-dose 75+ series) 06/16/2022 PHQ-2 (once per calendar year) 2024 COVID-19 VACCINE ( season) 2024 12/24/2023, 02/05/2023, 02/05/2022, Additional history exists DIABETES SCREENING 06/18/2027 2024 DTAP/TDAP/TD VACCINE (4 - Td or Tdap) 09/01/2029 09/02/2019, 08/16/2009, 08/16/2009 PNEUMOCOCCAL VACCINE 50+ YEARS Completed 01/15/2016, 06/02/2014, 05/23/2014, Additional history exists HEPATITIS C SCREENING Completed 01/02/2017 ZOSTER VACCINE Completed 06/03/2018, 05/15, 01/29/2018 INFLUENZA VACCINE Completed 12/24/2023, , 12/09/2021, Additional history exists HPV VACCINE Aged Out No longer eligi ble based on patient's age to complete this topic MENINGITIS VACCINE Aged Out No longer eligible based on patient's age to complete this topic Procedures Procedure Name Priority Date/Time Associated Diagnosis Comments BASIC METABOLIC PANEL STAT 2024 6:07 PM STOCK CAR DRIVER from Last 3 Months or Most Recently Relevant to Health Maintenance Results * (ABNORMAL) Basic metabolic panel (2024 6:07 PM STOCK CAR DRIVER) Sodium 133(L) 135 - 145 mmol/L 2024 6:55 PM STOCK CAR DRIVER [facility] Potassium 4.4 3.4 - 5.3 mmol/L 2024 6:55 PM STOCK CAR DRIVER [facility] Chloride 97(L) 98 - 107 mmol/L 2024 6:55 PM STOCK CAR DRIVER [facility] Carbon Dioxide (CO2) 27 22 - 29 mmol/L 2024 6:55 PM STOCK CAR DRIVER [facility] Anion Gap 9 7 - 15 mmol/L 2024 6:55 PM STOCK CAR DRIVER [facility] Urea Nitrogen 20.3 8.0 - 23.0 mg/dL 2024 6:55 PM STOCK CAR DRIVER [facility] Creatinine 1.20(H) 0.67 - 1.17 mg/dL 2024 6:55 PM STOCK CAR DRIVER [facility] GFR Estimate 62 >60 mL/min/1.7 3m2 2024 6:55 PM STOCK CAR DRIVER [facility] Comment:eGFR calculated usri 2020 CKD-EPI equation. Calcium 10.5(H) 8.8 - 10.4 mg/dL 2024 6:55 PM STOCK CAR DRIVER [facility] Glucose 221(H) 70 - 99 mg/dL 2024 6:55 PM STOCK CAR DRIVER [facility] Blood STRUCTURE OF LEFT UPPER LIMB / Unknown Venipuncture / Unknown 2024 6:07 PM STOCK CAR DRIVER 2024 6:12 PM STOCK CAR DRIVER Sim Manzo MD LAB - BLOOD ORDERABLES F inal Result LABORATORY [facility] [address] [facility] (1st floor, no room number) [place] [address], [facility] from Last 3 Months or Most Recently Relevant to Health Maintenance Insurance [employer] MEDICARE ADVANTAGE [employer] MEDICARE ADVANTAGE Care Teams Graphic Design Assistant Relationship Specialty Start Date End Date System, Provider Not In PCP - General Clinic 06/17/24
--- OUTSIDE RECORDS SUMMARY | 2024-10-05 12:30 | XMS_ITS | Referral Summary ---
Author Organization [facility] Address [address] [place] [address] Care Team Providers Care Wire Inspector Name Role Phone Rosamaria Lane MD Unavailable [phone] [facility], [place] Unavailable Unavailable Allergies Active Allergy Reactions [...] long-term current use of insulin (HCC) by [facility].(Non-Drug ; Combo Route) route once daily. Accu-chek Fastclix. 100 each 3 1 Active pen needle, diabetic (BD INSULIN PEN NEEDLE UF) 31 gauge x 5/16 needleIndications :Type 2 diabetes mellitus with stage 3a chronic kidney disease, with long-term current use of insulin (HCC) by [facility].(Non-Drug ; Combo Route) route once [...] (arteriosclerotic cardiovascular disease) 03/01/2011 Overview (02/26/2012): *06/24/2002- [place]. Balloon angioplasty and stenting of the occluded Cx/OM artery using a 2.5x15mm balloon followed by 2.06q21bw B Velocity stent. *08/10/2002- Angiogram complete. 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 Respiratory Rate 14 10/01/2010 8:30 AM CDT [...] HGBA1C OP 6.8(H) 3.8 - 5.6 % [facility] Blood VENOUS BLOOD SPECIMEN / Unknown 01/26/2021 1:32 PM CDT Nargis Contreras MD CHEMISTRY ORDERABLE Final Resu lt [facility] [address] [address], * (ABNORMAL) BASIC METAB PROFILE (01/26/2021 1:32 PM CDT) GLUCOSE CASUAL OP 100.0(H) 70.0 - 99.0 mg/dL [facility] BUN 16.0 7.0 - 18.0 mg/dL [facility] CREATININE 1.33(H) 0.60 - 1.30 mg/dL [facility] CALCIUM 9.3 8.5 - 10.1 mg/dL [facility] SODIUM 139.0 136.0 - 145.0 mmol/L [facility] POTASSIUM 4.2 3.5 - 5.1 mmol/L [facility] CHLORIDE 102.0 98.0 - 107.0 mmol/L [facility] CO2 26.1 21.0 - 32.0 mmol/L [facility] EST GFR (MDRD) 52.7 [facility] Comment: Calculated GFR for the [...] Contreras MD CHEMISTRY ORDERABLE Final Resu lt [facility] [address] [address], * HEP C ANTIBODY (01/02/2017 11:09 AM CDT) Hepatitis C Antibody Non-Reacti ve Non-Reacti ve 01/03/2017 11:52 AM CDT [facility] Blood VENOUS BLOOD SPECIMEN / Unknown 01/02/2017 11:09 AM CDT 01/03/2017 10:52 AM CDT Allan Wilder MD IMMUNOLOGY ORDERABLE Final Resul t Performing Organization Address City/[facility] Co de Phone Number [facility] [address] [place] [address] from Last 3 Months or Most Recently Relevant to Health Maintenance Insurance [facility] MEDICARE ADVANTAGE [address] [place] [address] MEDICARE PART A & B [employer] MEDICARE ADVANTAGE Advance Directives For more information, please contact: [phone] Documents on File Type Date Recorded 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
--- OUTSIDE RECORDS SUMMARY | 2024-10-05 12:31 | XMS_ITS | Continuity of Care Document ---
Author Organization [facility], [facility] Address [address] [place] [address] Care Team Providers Care Child Neurologist Name Role Phone BALJINDER BLACK Primary Care Provider Assessment No assessment recorded. Plan of Treatment Reminders Order Date Submit Date Provider Last Modified By Organization Details Last Modified Time Details Appointments None recorded . Lab urinalys is, dipstick 2024 025 [email or web address] [facility], [address], [address], [place], [address], Ph 15:56:04 Referral None recorded . Procedures bladder scan (PROC) 2024 025 [email or web address] [facility], [address], [address], [place], [address], Ph 5 15:56:04 Surgeries None recorded . Imaging None recorded . Medication Orders Cipro 500 mg tablet 2024 025 [email or web address] [id number], [id number], [place], [address], 5 15:56:04 Patient TargetsNo targets recorded. 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 [facility] pt does not have a cath Here is with his , Ariana there are not quite sure of why Review and interpretation of notes provided Was seen in the emergency room 06/18/2024, general weakness Past medical history of hypertension, hyperlipidemia, AL and type 2 diabetes Spinal cord compression, [...] bladder mass 1 hour, greater than 50% [id number], discussion of procedure, risk/benefits, follow-up, etc. [email or web address] Not available 09/27/2024 15:39:07 Reason for Referral None Reported. Results Created Date Observation Date Name Description Value Unit Range Abnormal Flag Note LastModifiedBy Organization Detail LastModifiedTime 09/28/19 25 09/27/2024 bladd er scan (PROC ) Volume (in mL) 182 Not Available [facility] [address], [place], [address], Ph [phone] 09/27/2024 15:10:55 09/28/19 25 09/27/2024 urina lysis , dipst ick GLU negati ve Not Available [facility] [address], [place], [address], Ph 09/27/2024 15:10:40 09/28/19 25 09/27/2024 urina lysis , dipst ick ION negati ve Not Available [facility] [address], [place], [address], Ph [phone] 09/27/2024 15:10:40 09/28/19 25 09/27/2024 urina lysis , dipst ick KET negati ve Not Available [facility] [address], [place], [address], Ph 09/27/2024 15:10:40 09/28/19 25 09/27/2024 urina lysis , dipst ick SG 1.020 Not Available [facility] [address], [place], [address], Ph [phone] 09/27/2024 15:10:40 09/28/19 25 09/27/2024 urina lysis , dipst ick BLO large Not Available [facility] [address], [place], [address], Ph 09/27/2024 15:10:40 09/28/19 25 09/27/2024 urina lysis , dipst ick pH 6.0 Not Available [facility] [address], [place], [address], Ph 09/27/2024 15:10:40 09/28/19 25 09/27/2024 urina lysis , dipst ick PRO 30 mg/dL Not Available [facility] [address], [place], [address], Ph 09/27/2024 15:10:40 09/28/19 25 09/27/2024 urina lysis , dipst ick URO 0.2 Not Available [facility] [address], [place], [address], Ph 09/27/2024 15:10:40 09/28/19 25 09/27/2024 urina lysis , dipst ick NIT Negati ve Not Available [facility] [address], [place], [address], Ph [phone] 09/27/2024 15:10:40 09/28/19 25 09/27/2024 urina lysis , dipst ick JAGDISH negati ve Not [place], [address], Ph 09/27/2024 15:10:40 Result Notes None recorded. Problems Name Problem SNOMED Code Status Onset Date Resolution Date Notes Provider Name and Address Organization Details Recorded Time Retention of urine 559139389 Active 2024 Farideh jaquez MD [address] [place] [address],[address], [address], [facility] 5 09:07:14 Benign prostatic hyperplasia with outflow obstruction 603732014 Active 2024 Farideh jaquez MD [address] [place] [address] [place] [address], [address], [facility] 5 09:07:36 Problem Notes None recorded. Procedures Surgical History Date Name Laterality Status Provider Name and Address Organization Details Recorded Time 09/28/19 25 Cystoscopy- male completed Farideh Patel MD [address] [place] [address],[address], [address], [facility] 09/27/2024 15:36:08 09/28/19 25 COMPLEX VISIT completed Farideh Patel MD [address] [place] [address],[address], [address], [facility] 09/27/2024 13:42:35 09/28/19 25 TRUS- Volume size only completed Farideh Patel MD [address] [place] [address],[address], [address], [facility] 09/27/2024 14:54:51 09/28/19 25 [place] - TRUS Volume size only completed Farideh Patel MD [address] [place] [address],[address], [address], [facility] 09/27/2024 15:36:10 07/14/19 25 Bladder Scan completed Rivka Grossman [facility] 07/13/2024 14:12:55 Imaging Results None recorded. Procedure Notes None recorded. Medical Equipment None Reported. Allergies Allergen ID Allergen Name Allergen Category Reaction Reaction Severity Criticality Documentation Date Start Date Code Code System Note Provider Name and Address Organization Details Recorded Time 908430 acetamino phen / oxycodone medicatio n other Not available low 07/13/20242017 37392 3 RxNorm Patie nt state d he feels besi de himse lf (anxi ety type react ion) Patie nt state d he feels besi de himse lf (anxi ety type react ion) Rivka pérez [facility] 14:23:47 886848 Product containin g penicilli n (product) medicatio n Not available Not available Not available 07/13/20242013 44930 8001 SNOMED unrec ogniz ed react ion (text : *Unkn own - Child john Rxn, code: 31577 000) (from exter nal sourc e) Rivka pérez [facility] 14:23:50 Medications Name Sig Start Date [...] Not Available Vitals Date Recorded Body height Provider Name an d Address Organization Details Last Updated DateTime 09/27/2024 177.8 cm Aleida Saucedo [facility] 09/27/2024 14:49:10 Social History Question Answer Notes LastModified by [employer] Details LastModified Time Tobacco Smoking Status [facility]/13/2024 14:24:49 Do You Have An Advance Directive? Yes [email or web address] Information not available 09/27/2024 What Is Your Level Of Caffeine Consumption? Moderate Information not available 07/13/2024 When Did You Quit Smoking? 16+yearssince lastcigarette [email or web address] Information not available 09/27/2024 Do You Have A Medical Power Of Rest Room Maid? Yes [email or web address] Information not available 09/27/2024 What Was The Date Of Your Most Recent Tobacco Screening? 09/27/2024 [email or web address] Information not available 09/27/2024 Have You Ever Been Counseled For Unhealthy Alcohol Use? No [email or web address] Information not available 09/27/2024 How Much Tobacco Do You Smoke? No [email or web address] Information not available 09/27/2024 How Many Days In The Past Year Have You Consumed 5 Or More Drinks? 0 [email or web address] Information not available 09/27/2024 Sex: Male Functional Status Question Answer Note LastModified by Organizat ion Details LastModified Time Do you use any illicit or recreational drugs? No [email or web address] Information not available 09/27/2024 Do you or have you ever used any other forms of tobacco or nicotine? No [email or web address] Information not available 09/27/2024 What is your level of alcohol consumption? Moderate [email or web address] Information not available 09/27/2024 Mental Status None recorded. Family History Relationship Description Onset Age of this Age Resolved Age Notes LastModified by Organization Details LastModified Time Mother History of malignant neoplasm Unknow n Not available 07/13/2024 14:24:26 Medical History Condition Response Sexually Transmitted Infection N Diabetes Y Other N Bleeding Disorder N High Blood Pressure N Kidney Stones N High Cholesterol N GERD/Acid Reflux Y Heart Disease Y Cancer N Depression N Lung Disease N Immunizations Vaccine Type Date Status Note Provider Nam e and Address Organization Details Recorded Time Influenza, split virus, trivalent, preservative 9 completed Not Available [facility] 09/27/2024 14:33:54 pneumococcal polysaccharide PPV23 9 completed Not Available [facility] 09/27/2024 14:33:54 Tdap 0 completed Not Available [facility] 09/27/2024 14:33:54 Influenza, split virus, trivalent, preservative 3 completed Not Available [facility] 09/27/2024 14:33:54 Influenza, split virus, trivalent, preservative 2 completed Not Available [facility] 09/27/2024 14:33:54 Influenza, high-dose, trivalent, PF 4 completed Not Available [facility] 09/27/2024 14:33:54 pneumococcal polysaccharide PPV23 5 completed Not Available [facility] 09/27/2024 14:33:54 Influenza, high-dose, trivalent, PF 5 completed Not Available [facility] 09/27/2024 14:33:54 Pneumococcal conjugate PCV 13 6 completed Not Available [facility] 09/27/2024 14:33:54 Influenza, high-dose, trivalent, PF 6 completed Not Available [facility] 09/27/2024 14:33:54 Influenza, high-dose, trivalent, PF 7 completed Not Available [facility] 09/27/2024 14:33:54 Influenza, high-dose, trivalent, PF 8 completed Not Available [facility] 09/27/2024 14:33:54 zoster recombinant 8 completed Not Available [facility] 09/27/2024 14:33:54 zoster recombinant 9 completed Not Available [facility] 09/27/2024 14:33:54 zoster recombinant 9 completed Not Available [facility] 07/13/2024 14:08:36 Influenza, high-dose, trivalent, PF 9 completed Not Available [facility] 09/27/2024 14:33:54 Tdap 0 completed Not Available [facility] 09/27/2024 14:33:54 Influenza, split virus, trivalent, PF 0 completed Not Available [facility] 09/27/2024 14:33:54 COVID-19, mRNA, LNP-S, PF, 30 mcg/0.3 mL dose 1 completed Not Available [facility] 09/27/2024 14:33:54 COVID-19, mRNA, LNP-S, PF, 30 mcg/0.3 mL dose 1 completed Not Available [facility] 09/27/2024 14:33:54 pneumococcal polysaccharide PPV23 5 completed Not Available [facility] 07/13/2024 14:08:36 Influenza, adjuvanted, quadrivalent, PF 1 completed Not Available [facility] 09/27/2024 14:33:54 COVID-19, mRNA, LNP-S, PF, 30 mcg/0.3 mL dose 1 completed Not Available [facility] 09/27/2024 14:33:54 COVID-19, mRNA, LNP-S, PF, 30 mcg/0.3 mL dose, concepcion-sucrose 2 completed Not Available [facility] 09/27/2024 14:33:54 Influenza, high-dose, quadrivalent, PF 2 completed Not Available [facility] 09/27/2024 14:33:54 Influenza, high-dose, quadrivalent, PF 3 completed Not Available [facility] 09/27/2024 14:33:54 COVID-19, mRNA, LNP-S, PF, 50 mcg/0.5 mL 3 completed Not Available [facility] 09/27/2024 14:33:54 RSV, recombinant, protein subunit RSVpreF, adjuvant reconstituted, 0.5 mL, PF 3 completed Not Available [facility] 09/27/2024 14:33:54 Influenza, high-dose, trivalent, PF 4 completed Not Available [facility] 09/27/2024 14:33:54 COVID-19, mRNA, LNP-S, PF, 50 mcg/0.5 mL 4 completed Not Available [facility] 09/27/2024 14:33:54 Past Encounters Encounter ID Performer Location Encounter Start Date Encounter Closed Date Diagnosis/Indication Diagnosis SNOMED-CT Code Diagnosis ICD10 Code Diagnosis Note [id number] Farideh Patel MD [facility] [address] [facility],[address] [facility] [place] [address] 09/27/2024 14:32:44 09/27/2024 15:39:25 Benign prostatic hyperplasia with outflow obstruction 475014770 N40.1 Retention of urine 37684 4002 R33.9 Health Concerns Section Related Observation LastModified by Organization Detai ls LastModified Time None Recorded Concern Status LastModified by Organization Details LastModified Time None Recorded Payers Encounter Date Sequence Insurance Name Policy Number Policy Jeffries Covered Member ID Jeffries Member ID Guarantor Name 09/27/2024 1 [employer] (MEDICARE REPLACEMENT/A DVANTAGE - PPO) [id number] Neymar Pruett [id number] Neymar Pruett Notes Date Note Type Note Provider Name and Address Organization Details Recorded Time 09/27/2024 text/html Has been doing well recently no major changes no fevers, chills, night sweats review of past medical history discussed medications and general health Farideh Patel MD [address] [facility],[address], [place], [address], [facility] 09/27/2024 15:39:20
--- OUTSIDE RECORDS SUMMARY | 2024-10-06 00:38 | XMS_ITS | Clinical Summary ---
Author Organization [facility] Address [address] [place] [address] Care Team Providers Care Electric Arc Furnace Operator Name Role Phone Yumiko Vidal MD Unavailable Unavailable Yumiko Vidal MD Unavailable Unavailable Esther Arboleda MD Primary Care Provider [phone] Allergies Active Allergy Reactions Criticality Noted Date [...] Shortness of breath 12/08/2006 ASHD S/P INFERIOR AL + RCA STENT 06/14 BEREKET CHRISTINEO RIAL 12/08/2006 Pure hypercholesterolemia 12/08/2006 EXCESS WEIGHT 12/08/2006 Encounters Date Type Department Care Team Description 08/24/2024 2:00 PM CDT Office Visit [facility] [address] [place] [address] Kevin Galloway, DPM Follow Up (Diabetic foot check ) 08/24/2024 Travel 07/26/2024 11:48 AM CDT - 07/26/2024 11:59 PM CDT Hospital Encounter [facility] [place] [address] [place] [address] Esther Hernández, OT 07/26/2024 Travel from Last [...] on file Legal Sex Male 6:29 AM MALE IMPERSONATOR Gender Identity Not on file Sexual Orientation Not on file Obstetrics History Last Filed Vital Signs Vital Sign Reading Time Taken Comments Blood Pressure 123/77 08/24/2024 1:55 PM CDT tow er Pulse 82 08/24/2024 1:55 PM CDT Temperature 36.7 C (98.1 F) 11/18/2022 1:31 PM CDT Respiratory Rate 14 06/29/2021 11:27 AM CDT Oxygen Saturation 96% 04/29/2023 12:56 PM MALE IMPERSONATOR Inhaled Oxygen Concentration - - Weight 102.1 [...] MEDICARE PART A HB ONLY Care Teams Electric Arc Furnace Operator Relationship Specialty Start Date End Date Esther Arboleda MD [address] [place] [address] PCP - General 01/16/22 Yumiko Vidal MD Endocrinology 01/25/14 Yumiko Vidal MD Endocrinology 01/25/14
--- OUTSIDE RECORDS SUMMARY | 2024-10-06 00:38 | XMS_ITS | Clinical Summary ---
Author Organization [facility] Address [address] [facility] , [address] [facility] [address] Phone Care Team Providers Care It Programmer Name Role Phone Records, Outside Unavailable Unavailable Conditions or Problems Problem Name Problem Code Onset Date Status Entry Date Provider Comment Standard Description Annotate Mild cognitive impairment 116002965 (SNOMED CT) Active 09/08 Summer Jamil PhD Mild neurocognitive disorder Spinal stenosis of lumbar region 41618921 (SNOMED CT) Active 11/07 Nellie Connelly MD Spinal stenosis of lumbar region Tremor, essential 289710843 (SNOMED CT) Active 11/07 Nellie Connelly MD Essential tremor Peripheral neuropathy 377054377 (SNOMED CT) Active 12/12 Beltran Rosenberg MD Peripheral nerve disease Gait imbalance 06561631 (SNOMED CT) Active 05/05 Beltran Rosenberg MD Abnormal gait Memory problems R41.3 (ICD-10-CM) Active 05/05 Beltran Rosenberg MD Other amnesia Medications Medication Instructions Start Date Stop Date Generic Name NDC Provider ARICEPT 5 MG TABS Take 1 tab by mouth once a day x1 month, then 10 mg daily thereafter 8 donepezil 48363103768 Bianca Ybarra PA-C TRESIBA FLEXTOUCH 100 UNIT/ML SOPN insulin degludec 53520550343 Bianca Ybarra PA-C TAMSULOSIN HCL 0.4 MG CAPS tamsulosin 91819385038 Bianca Ybarra PA-C SIMVASTATIN 10 MG TABS simvastatin 04273163409 Bianca Ybarra PA-C ASPIRIN LOW DOSE 81 MG TBEC TAKE 1 TABLET BY MOUTH DAILY aspirin 65609237755 Bianca Ybarra CELSAZeke METFORMIN HCL ER 500 MG [id number] metformin (glucophage xr) 64438439581 Bianca Ybarra PA-C GABAPENTIN 300 MG CAPS Take 1 po BID 1 gabapentin 53969640949 Nellie Connelly MD Medications Administered No information available. Allergies, Adverse Reactions, Alerts Allergy Name Reaction Description Start Date Severity Statu s Provider OXYCODONE Critical Active Bianca rizzoaus PA-C PENICILLIN Critical Active [facility] Results Date Name Value [...] Appointment 10:00 AM Bianca rausch PA-C, [address] [facility], [address], [place], [address], Pending order Follow up Pending order Patient [...] Name Date Entry Date ORDERS Patient Instructions CPT-00631 No Charge CPT-04377 Npsy Interview w/Provider - 1st hour 2023 CPT-66888 Npsy Interp/Rpt by Provider - 1st hour 04/09/21 CPT-54702 Npsy Interp/Rpt by Provider - 2 hours 07/17/21 CPT-35902 Npsy Test by Tech (2+ Tests) - 1st 30 min CPT-81065 Npsy Test by Tech (2+ Tests) - 1.5 hours ORDERS Neuropsychology Evaluation 2 ORDERS Follow up after testing 2022 CPT-24797 MRI Lumbar W/O [id number] MRI-Lumbar W/O ORDERS Obtain outside records 11/07 ORDERS [facility] 11/07 CPT-40203 Nerve Conduction 7-8 studies CPT-64058 EMG with NCS (5+ muscles) - 1 limb 12/12 CPT-71062 EMG with NCS (4 or fewer muscles) - 1 johnson b [id number] MRI-Brain W/O ORDERS Vitamin B12 ORDERS Vitamin B1 (Thiamine) 05/05 ORDERS TSH CPT-34619 MRI Brain W/O ORDERS Neuropsychology Evaluation 2 Vital Signs No information available. Immunizations No information available. Advance Directives No information available.
--- OUTSIDE RECORDS SUMMARY | 2024-10-06 00:39 | XMS_ITS | Clinical Summary ---
Author Organization [facility] Address [address] [place] [address] Care Team Providers Care Stabilizing Machine Operator Name Role Phone Rosamaria Lane MD Unavailable [phone] [facility], [place] Unavailable Unavailable Allergies Active Allergy [...] long-term current use of insulin (HCC) by [facility].(Non-Drug ; Combo Route) route once daily. Accu-chek Fastclix. 100 each 3 1 Active pen needle, diabetic (BD INSULIN PEN NEEDLE UF) 31 gauge x 5/16 needleIndications :Type 2 diabetes mellitus with stage 3a chronic kidney disease, with long-term current use of insulin (HCC) by [facility].(Non-Drug ; Combo Route) route once daily. 100 [...] (arteriosclerotic cardiovascular disease) 03/01/2011 Overview (02/26/2012): *06/24/2002- DC. Balloon angioplasty and stenting of the occluded Cx/OM artery using a 2.5x15mm balloon followed by 2.95s50lo B Velocity stent. *08/10/2002- Angiogram complete. 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0 - 99.0 mg/dL [facility] BUN 16.0 7.0 - 18.0 mg/dL [facility] CREATININE 1.33(H) 0.60 - 1.30 mg/dL [facility] CALCIUM 9.3 8.5 - 10.1 mg/dL [facility] SODIUM 139.0 136.0 - 145.0 mmol/L [facility] POTASSIUM 4.2 3.5 - 5.1 mmol/L [facility] CHLORIDE 102.0 98.0 - 107.0 mmol/L [facility] CO2 26.1 21.0 - 32.0 mmol/L [facility] EST GFR (MDRD) 52.7 [facility] Comment: Calculated GFR for the patient [...] Contreras MD CHEMISTRY ORDERABLE Final Resu lt [facility] [address] [facility] [address] [place] [address], * HEP C ANTIBODY (01/02/2017 11:09 AM CDT) Hepatitis C Antibody Non-Reacti ve Non-Reacti ve 01/03/2017 11:52 AM CDT [facility] Blood VENOUS BLOOD SPECIMEN / Unknown 01/02/2017 11:09 AM CDT 01/03/2017 10:52 AM CDT Allan Wilder MD IMMUNOLOGY ORDERABLE Final Resul t [facility] [address] [place] [address] from Last 3 Months or Most Recently Relevant to Health Maintenance Insurance [facility] MEDICARE ADVANTAGE [id number] [facility] [place] [address] MEDICARE PART A & B [employer] MEDICARE ADVANTAGE Advance Directives For more information, please contact: [phone] Documents on File Type Date Recorded 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
--- OUTSIDE RECORDS SUMMARY | 2024-10-06 00:39 | XMS_ITS | Clinical Summary ---
Author Organization [facility] Address [address] [place] [id number] Care Team Providers Care Animation Artist Name Role Phone System, Provider Not In [...] Comments Blood Pressure 134/77 2024 8:30 PM STUDENT ACCOUNTS COORDINATOR Pulse 93 2024 8:30 PM STUDENT ACCOUNTS COORDINATOR Temperature 36.8 C (98.3 F) 2024 6:04 PM STUDENT ACCOUNTS COORDINATOR Respiratory Rate 18 2024 9:26 PM STUDENT ACCOUNTS COORDINATOR Oxygen Saturation 95% 2024 8:16 PM STUDENT ACCOUNTS COORDINATOR Inhaled Oxygen Concentration - - Weight 100.5 kg (221 lb 8 oz) 2024 6:04 PM STUDENT ACCOUNTS COORDINATOR Height 182.9 cm (6') 2024 6:04 PM STUDENT ACCOUNTS COORDINATOR Body Mass Index 30.04 2024 6:04 PM STUDENT ACCOUNTS COORDINATOR Plan of Treatment Health Maintenance Due Date [...] BASIC METABOLIC PANEL STAT 2024 6:07 PM STUDENT ACCOUNTS COORDINATOR from Last 3 Months or Most Recently Relevant to Health Maintenance Results * (ABNORMAL) Basic metabolic panel (2024 6:07 PM STUDENT ACCOUNTS COORDINATOR) Sodium 133(L) 135 - 145 mmol/L 2024 6:55 PM STUDENT ACCOUNTS COORDINATOR [facility] Potassium 4.4 3.4 - 5.3 mmol/L 2024 6:55 PM STUDENT ACCOUNTS COORDINATOR [facility] Chloride 97(L) 98 - 107 mmol/L 2024 6:55 PM STUDENT ACCOUNTS COORDINATOR [facility] Carbon Dioxide (CO2) 27 22 - 29 mmol/L 2024 6:55 PM STUDENT ACCOUNTS COORDINATOR [facility] Anion Gap 9 7 - 15 mmol/L 2024 6:55 PM STUDENT ACCOUNTS COORDINATOR LAB[facility]ATORY Urea Nitrogen 20.3 8.0 - 23.0 mg/dL 2024 6:55 PM STUDENT ACCOUNTS COORDINATOR LAB[facility]ATORY Creatinine 1.20(H) 0.67 - 1.17 mg/dL 2024 6:55 PM STUDENT ACCOUNTS COORDINATOR LABORATORY GFR Estimate 62 >60 mL/min/1.7 3m2 2024 6:55 PM STUDENT ACCOUNTS COORDINATOR [facility] Comment:eGFR calculated usmo 2020 CKD-EPI equation. Calcium 10.5(H) 8.8 - 10.4 mg/dL 2024 6:55 PM STUDENT ACCOUNTS COORDINATOR LAB[facility]ATORY Glucose 221(H) 70 - 99 mg/dL 2024 6:55 PM STUDENT ACCOUNTS COORDINATOR LAB[facility]ATORY Blood STRUCTURE OF LEFT UPPER LIMB / Unknown Venipuncture / Unknown 2024 6:07 PM STUDENT ACCOUNTS COORDINATOR 2024 6:12 PM STUDENT ACCOUNTS COORDINATOR Sim Manzo MD LAB - BLOOD ORDERABLES F inal Result LABORATORY [facility] [address] [facility] (1st floor, no room number) [place] [address], [facility] from Last 3 Months or Most Recently Relevant to Health Maintenance Insurance [employer] MEDICARE [employer]VANTAGE [employer]VANTAGE Care Teams Animation Artist Relationship Specialty Start Date End Date System, Provider Not In PCP - General Clinic 06/17/24
--- OUTSIDE RECORDS SUMMARY | 2024-10-06 00:39 | XMS_ITS | Referral Summary ---
Author Organization [facility] Address [address] [place] [address] Care Team Providers Care Way Inspector Name Role Phone Rosamaria Lane MD Unavailable [phone] [facility], [place] Unavailable Unavailable Allergies Active [...] long-term current use of insulin (HCC) by [facility].(Non-Drug ; Combo Route) route once daily. Accu-chek Fastclix. 100 each 3 1 Active pen needle, diabetic (BD INSULIN PEN NEEDLE UF) 31 gauge x 5/16 needleIndications :Type 2 diabetes mellitus with stage 3a chronic kidney disease, with long-term current use of insulin (HCC) by [facility].(Non-Drug ; Combo Route) route once daily. 100 [...] (arteriosclerotic cardiovascular disease) 03/01/2011 Overview (02/26/2012): *06/24/2002- [place]. 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 *08/10/2002- Angiogram complete. 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 Respiratory Rate 14 10/01/2010 8:30 AM CDT [...] HGBA1C OP 6.8(H) 3.8 - 5.6 % [facility] Blood VENOUS BLOOD SPECIMEN / Unknown 01/26/2021 1:32 PM CDT Nargis Contreras MD CHEMISTRY ORDERABLE Final Resu lt [facility] [address] [address], * (ABNORMAL) BASIC METAB PROFILE (01/26/2021 1:32 PM CDT) GLUCOSE CASUAL OP 100.0(H) 70.0 - 99.0 mg/dL [facility] BUN 16.0 7.0 - 18.0 mg/dL [facility] CREATININE 1.33(H) 0.60 - 1.30 mg/dL [facility] CALCIUM 9.3 8.5 - 10.1 mg/dL [facility] SODIUM 139.0 136.0 - 145.0 mmol/L [facility] POTASSIUM 4.2 3.5 - 5.1 mmol/L [facility] CHLORIDE 102.0 98.0 - 107.0 mmol/L [facility] CO2 26.1 21.0 - 32.0 mmol/L [facility] EST GFR (MDRD) 52.7 [facility] Comment: Calculated GFR for the patient 18 [...] Contreras MD CHEMISTRY ORDERABLE Final Resu lt [facility] [address] [address], * HEP C ANTIBODY (01/02/2017 11:09 AM CDT) Hepatitis C Antibody Non-Reacti ve Non-Reacti ve 01/03/2017 11:52 AM CDT [facility] Blood VENOUS BLOOD SPECIMEN / Unknown 01/02/2017 11:09 AM CDT 01/03/2017 10:52 AM CDT Allan Wilder MD IMMUNOLOGY ORDERABLE Final Resul t Performing Organization Address City/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
== END 2024-10-05 10:39 | disposition home or self-care (01) ==
LOC: CT 10:39
PROVIDERS: PCP Family Medicine; Visit Provider Urology
DX: C67.9 Malignant neoplasm of bladder, unspecified (principal)
CPT/HCPCS: 36415; 74178; 82565; Q9967

== ENCOUNTER 2024-10-12 10:43 | Outpatient (CLI) | payer OTHER, SELFPAY | END 2024-10-12 10:44 | disposition home or self-care (01) | LOC: NFLDREF 10-15 10:30 | PROVIDERS: PCP Family Medicine; Referring Provider Family Medicine; Visit Provider Family Medicine | DX: R82.90 Unspecified abnormal findings in urine (principal) | CPT/HCPCS: 87086 ==

== ENCOUNTER 2024-12-15 08:55 | Outpatient (CLI) | payer OTHER, SELFPAY | END 2024-12-15 08:56 | disposition home or self-care (01) | LOC: RAD 08:55 | PROVIDERS: PCP Family Medicine; Visit Provider Internal Medicine | DX: R00.1 Bradycardia, unspecified (principal); I44.7 Left bundle-branch block, unspecified; I51.7 Cardiomegaly; I34.0 Nonrheumatic mitral (valve) insufficiency; I50.9 Heart failure, unspecified | CPT/HCPCS: 93306 ==

== ENCOUNTER 2025-01-21 14:30 | Outpatient (CLI) | payer OTHER, SELFPAY | END 2025-01-21 14:31 | disposition home or self-care (01) | LOC: NFLDREF 01-24 18:34 | PROVIDERS: PCP Family Medicine; Referring Provider Family Medicine; Visit Provider Nurse Practitioner Family | DX: C67.9 Malignant neoplasm of bladder, unspecified (principal) | CPT/HCPCS: 87086 ==

== ENCOUNTER 2025-02-02 10:38 | Outpatient (CLI) | payer OTHER, SELFPAY ==
[2025-02-02 11:02] LABS: Appearance Urine Cloudy (Clear)
== END 2025-02-02 10:39 | disposition home or self-care (01) ==
LOC: LAB 10:39
PROVIDERS: PCP Family Medicine; Visit Provider Physician Assistant
DX: R35.0 Frequency of micturition (principal); I10 Essential (primary) hypertension
CPT/HCPCS: 81001; 87086

== ENCOUNTER 2025-02-16 09:37 | Outpatient (CLI) | payer OTHER, SELFPAY | END 2025-02-16 09:38 | disposition home or self-care (01) | PROVIDERS: PCP Family Medicine; Visit Provider Family Medicine | DX: E11.42 Type 2 diabetes mellitus with diabetic polyneuropathy (principal); E78.2 Mixed hyperlipidemia; N18.9 Chronic kidney disease, unspecified; Z79.4 Long term (current) use of insulin; Z86.39 Personal history of other endocrine, nutritional and metabolic disease; Z12.5 Encounter for screening for malignant neoplasm of prostate | CPT/HCPCS: 80053; 82043; 82570; 82607; G0103 ==